=== PATIENT | male | born 1955 | race Caucasian/White ===

== ENCOUNTER 2016-04-28 09:56 | Inpatient (IN) | payer OTHER ==
[~2016-04-28] VITALS: Ht 170.2 cm; Wt 89.1 kg
--- NOTE | 2016-04-28 10:48 | RADIOLOGY REPORT ---
EXAMINATION: XR PORTABLE CHEST CLINICAL INFORMATION: Unresponsive and unconscious patient COMPARISON: None TECHNIQUE: Portable AP view of the chest was obtained. FINDINGS: Borderline heart size. Low lung volumes. Streaky infiltrate or atelectasis noted in the left base. Right-sided central line with the tip at the cavoatrial junction. Any thorax is intact. IMPRESSION: Streaky infiltrate or atelectasis left base. Low lung volumes.
--- NOTE | 2016-04-28 10:55 | ED CRITICAL CARE ---
History of Present Illness General Chief Complaint: Dyspnea (COPD, CHF, Other) Stated Complaint: BIBA FOR RESP DISTRESS Source: family, EMS Exam Limitations: clinical condition Vital Signs & Intake/Output Vital Signs & Intake/Output Vital Signs Date Time Temp Pulse Resp B/P Pulse O2 O2 Flow FiO2 Ox Delivery Rate 05/02 1999 99 Room Air 05/01 1600 97.5 106 24 148/90 97 Room Air 05/01 1600 97 Room Air 05/01 0800 99 Room Air 05/01 0800 97.7 105 24 156/80 99 Room Air 05/01 0000 98 Room Air Room Air / 0000 97.1 109 24 146/90 98 Room Air Room Air ED Intake and Output 05/01 0000 03/05 1200 Intake Total 2140 816 Output Total 420 270 Balance 1720 546 Intake, IV 1300 576 Intake, Oral 840 240 Number 0 Bowel Movements Output, Urine 420 270 Allergies Coded Allergies: No Known Allergies (04/28/16) Reconcile Medications Allopurinol 300 MG TABLET 1 TAB PO DAILY gout (Reported) Reason to Stop at ADM:STEFAN Colchicine 0.6 MG TABLET 1 TAB PO DAILY GOUT (Reported) Reason to Stop at ADM:STEFAN Dexamethasone 2 MG TABLET 2 MG PO Q8 PRN BRAIN TUMOR (Reported) Reason to Stop at ADM:CHANGED TO IV Dronabinol (Marinol) 2.5 MG CAPSULE 1 CAP PO BID N/V (Reported) Reason to Stop at ADM: ON ZOFRAN Folic Acid 1 MG TABLET 1 TAB PO DAILY SUPPLEMENT (Reported) Gabapentin (Neurontin) 300 MG CAPSULE 1 CAP PO TID NEUROGENIC PAIN (Reported) Glimepiride (Amaryl) 2 MG TABLET 2 MG PO DAILY DIABETES (Reported) Reason to Stop at ADM:ISS Lacosamide (Vimpat) 200 MG TABLET 1 TAB PO BID SEIZURES (Reported) Reason to Stop at ADM:PO TO IV Levetiracetam (Keppra) 500 MG TABLET 1 TAB PO BID SEIZURE (Reported) Reason to Stop at ADM:PO TO IV Metoprolol Tartrate (Lopressor) 50 MG TABLET 25 MG PO BID BP (Reported) Reason to Stop at ADM:SHOCK Nut.tx.glucose Intolerance,Soy (Glucerna) 1 EACH BAR 1 BAR PO BID SUPPLEMENT (Reported) Pantoprazole Sodium (Protonix) 40 MG TABLET.DR 1 TAB PO DAILY GI (Reported) Phenytoin (Dilantin) 100 MG CAPSULE 2 CAP PO TID SEIZURE (Reported) Phenytoin (Dilantin) 100 MG CAPSULE 300 MG PO BEDTIME SEIZURES (Reported) Procarbazine Hydrochloride (Matulane) 50 MG CAPSULE 100 MG PO BEDTIME CANCER (Reported) Thiamine HCl 100 MG TABLET 1 TAB PO DAILY SUPPLEMENT (Reported) Triage Note: PT BIBA FOR RESPIRATORY DISTRESS. PER EMS PATIENT WAS CALLED TO FACILITY FOR SOB AND BLUE LEGS. PT WAS FOUND TO HAVE WEAK PEDAL PULSES BILATERAL, UNRESPONSIVE, AND TACHYCARDIC. PT WAS ALSO HYPOTENSIVE WITH A BP OF 100/60. PT ARRIVES IN ER BEING BAGGED BY EMS. PT LETHARGIC WITH O2 SAT OF 54%. RT AT BEDSIDE FOR TREATMENT. DR. BARTHOLOMEW AT BEDSIDE ON PATIENT ARRIVAL. 20G IV PLACED TO LEFT HAND. PT GIVEN NARCAN 0.4MG ON ARRIVAL WITH MINIMAL EFFECT. PT GIVEN 125MG OF IV SOLUMEDROL AT BEDSIDE AND UPDATED ON PLAN OF CARE Triage Nurses Notes Reviewed? yes Onset: Abrupt Duration: UNKNOWN, LAST SEEN NORMAL LAST NIGHT Timing: single episode today Injury Environment: ECF Severity: severe HPI: 60-year-old male history of glioblastoma status post chemotherapy right by EMS from intermediate for chief complaint of cyanosis and unresponsiveness. According to intermediate staff they found him like this this morning. arrives at bedside states that he was doing fine last night and feeding himself. Past History Travel History Traveled to [place] past 21 day No Medical History Any Pertinent Medical History? 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 No Review of Systems Review of Systems Constitutional: Reports: see HPI (UNABLE TO OBTAIN). Physical Exam Physical Exam General Appearance: well developed/nourished, severe distress Head: atraumatic Eyes: Bilateral: PERRL, other (LEFT PUPIL 6MM, R 3-4MM). Neck: normal inspection Respiratory: decreased breath sounds, rhonchi Cardiovascular: tachycardia Peripheral Pulses: 1+ radial (R), 1+ radial (L) Gastrointestinal: soft, non-tender, DISTENDED Extremities: LEFT SIDED WEAKNESS Neurologic/Psych: OBTUNDED, LEFT SIDED WEAKNESS Skin: cyanosis, mottled Core Measures ACS in differential dx? No CVA/TIA Diagnosis: No Severe Sepsis Present: Yes Septic Shock Present: Yes BC x2: Yes Lactic Acid: Yes IV ABX Broad Spectrum: Yes Focused Exam Completed: Yes NS/LR 30ml/kg w/in 3hrs: Yes IV Vasopressors started: Yes ED Sepsis Exam Date of Focused Sepsis Exam: 04/28/16 Time of Focused Sepsis Exam: 1136 Sepsis Cardiac Exam: Tachycardia Sepsis Resp Exam: Ronchi Sepsis Cap Refill Exam: >2 sec Sepsis Peripheral Pulse Exam: Weak Sepsis Peripheral Pulse Location: Radial Sepsis Skin Color Exam: Cyanotic, Mottled Skin Temp/Moisture Exam: Cool/Dry Progress Differential Diagnoses I considered the following diagnoses in my evaluation of the patient: [PNEUMONIA , PE, INTRACRANAIL BLEED, CVA, HYPERCARBIC RESPIRATORY FAILURE, UROSEPSIS, INTRAABDOMINAL VASCULAR INSULT, PERFORATED VISCUS, END ORGAN FAILURE] Plan of Care: Orders Procedure Date/time Status HEPATIC FUNCTION PANEL 05/02 0500 Active CBC WITHOUT DIFFERENTIAL 05/02 0500 Active BASIC ELECTROLYTES PLUS BUN&CR 05/02 0500 Active XRY-MODIFIED BARIUM SWALLOW 05/02 UNK Active Lab Add-on Test 05/01 1342 Active PT Evaluate & Treat 05/01 0850 Active Restraint- Medical 05/01 0849 Active Lara, Insertion/Removal/Asses 05/01 0848 Active PHOSPHORUS 05/01 0459 Complete MAGNESIUM 05/01 0459 Complete TRNSFRASE ASPART AMINO 05/01 0459 Complete TRNSFRAS ALANINE AMINO 05/01 0459 Complete Treatment of Swallowing 05/01 UNK Complete Therapeutic Activities 05/01 UNK Complete PT EVAL MOD COMPLEX 30 MIN 05/01 UNK Complete Neuromuscular Re-ed 05/01 UNK Complete Lab Add-on Test 05/01 UNK Active OXYGEN 04/29 UNK Complete OXYGEN DAILY CHARGE 04/29 UNK Complete CONTIN. POS. AIRWAY PRESS. CHG 04/29 UNK Complete OXYGEN SETUP CHG 04/28 UNK Complete OXYGEN 04/28 UNK Complete OXYGEN TRANSPORT 04/28 UNK Complete CONTIN. POS. AIRWAY PRESS. CHG 04/28 UNK Complete Current Medications Sig/Ness Start time Last Medication Dose Stop Time Status Admin Vancomycin HCl 1,000 MG DAILY 05/01 1000 CAN Dextrose/Water 250 ML (D5W) Acetaminophen 650 MG Q6P PRN 03/04 1900 AC (Tylenol) Laboratory Tests 05/01/16 0459: Anion Gap 11, Estimated GFR > 60, BUN/Creatinine Ratio 48.9 H, Phosphorus 3.6, Magnesium 1.9, AST 151 H, ALT 535 H, CBC w Diff NO MAN DIFF REQ, RBC 2.98 L, MCV 87.4, MCH 29.3, RDW 20.0 H, MPV 8.3, Gran % 89.5 H, Lymphocytes % 8.2 L, Monocytes % 2.0, Eosinophils % 0.1, Basophils % 0.2, Absolute Granulocytes 12.8 H, Absolute Lymphocytes 1.2, Absolute Monocytes 0.3, Absolute Eosinophils 0, Absolute Basophils 0, PUBS MCHC 33.5, Random Vancomycin 11.5 BROAD SPECTRUM ABX, FLUID RESUSSCITATION. PRESSORS STARTED. PATIENT ON BIPAP. PATIENT TO BE DNR/DNI AFTER SPOKE WITH ONCOLOGIST. WILL ADMIT TO ICU. BICARB DRIP. PATIENT IMPROVED ON LEVOPHED. AT BEDSIDE. MUCH TIME SPENT WITH FAMILY. REPORTS TO BE OBTAINED FROM [facility]. D/W DR LAFLEUR WHO EVALUATAED PATIENT IN THE ED. (CHANEL STEVE,[facility]) Diagnostic Imaging: Viewed by Me: CT Scan. Discussed w/RAD: CT Scan. Initial ED EKG: SINUS TACHYCARDIA, VENTRICULAR ECTOPY Comments: PATIENT: ARIADNE BERNSTEIN PRESENT AGE: 60 PATIENT ACCOUNT NO: [id number] : 59 LOCATION: [facility] ORDERING PHYSICIAN: PONCHO RIVERA MD SERVICE DATE: 04/28/16 EXAM TYPE: RAD - XRY-PORTABLE CHEST XRAY EXAMINATION: XR PORTABLE CHEST CLINICAL INFORMATION: Unresponsive and unconscious patient COMPARISON: None TECHNIQUE: Portable AP view of the chest was obtained. FINDINGS: Borderline heart size. Low lung volumes. Streaky infiltrate or atelectasis noted in the left base. Right-sided central line with the tip at the cavoatrial junction. Any thorax is intact. IMPRESSION: Streaky infiltrate or atelectasis left base. Low lung volumes. DICTATED BY: ART MARTINEZ MD DATE/TIME DICTATED:04/28/161038 PATIENT FINANCIAL REP:VERO DATE/TIME TRANSCRIBED:04/28/161038 CONFIDENTIAL, DO NOT COPY WITHOUT APPROPRIATE AUTHORIZATION. <Electronically signed in Other Vendor System> SIGNED BY: ART MARTINEZ MD 04/28/16 1048 PATIENT: ARIADNE BERNSTEIN PRESENT AGE: 60 PATIENT ACCOUNT NO: [id number] : 59 LOCATION: [facility] ORDERING PHYSICIAN: NICKI BUCHANAN MD SERVICE DATE: 04/28/16-110 EXAM TYPE: CAT - CT ABD & PELVIS W/O IV CONTRAS; CT CHEST WO IV CONTRAST EXAMINATION: CT CHEST, ABDOMEN AND PELVIS WITH CONTRAST CLINICAL INFORMATION: Presumptive Dx: R/O INTRAACUTE ABDOMINAL PROCESS
Signs Symptoms: SEPTIC, HYPOTENSIVE
. COMPARISON: No pertinent prior studies are available for comparison. TECHNIQUE: Multidetector volumetric imaging was performed from the thoracic inlet through the pubic symphysis without contrast. Sagittal and coronal reformatted images were obtained on the technologist workstation. DLP: 818.30 mGy-cm FINDINGS: Examination is degraded by patient motion. CHEST: LUNG: Evaluation is degraded by patient motion. Linear atelectatic changes noted in bilateral lower lobes no suspicious lung masses identified.. Hazy groundglass atelectatic changes lingular segment. Pleural-based atelectasis/scarring right posterior base. MEDIASTINUM: Right-sided Port-A-Cath with the tip at the cavoatrial junction. Mild prominence of the mediastinal lymph nodes noted in the prevascular space, right paratracheal and precarinal space. Mildly enlarged lymph nodes also noted in the subcarinal/right posterior hilar region. Mild atherosclerotic disease with intimal calcification of the coronary arteries. PERICARDIUM/PLEURA: No significant effusion. No pleural mass or thickening. CHEST WALL/AXILLA: Unremarkable. ABDOMEN/PELVIS: LIVER, GALLBLADDER, BILIARY TREE: The liver is normal in size, shape, and attenuation. No focal hepatic lesion or biliary ductal dilatation is present. Slightly hyperdense gallbladder appears to be in similar attenuation as the liver. This may be secondary to gallbladder sludge. No evidence of biliary ductal dilatation. PANCREAS: No gross abnormality on the limited noncontrast images. SPLEEN: Unremarkable. ADRENAL GLANDS: Unremarkable. KIDNEYS AND URETERS: No evidence of renal calculi. Renal cortical thinning in the upper poles. Evaluation is limited due to patient motion. BLADDER: Decompressed urinary bladder secondary to Lara catheter. Mild anterior bladder wall thickness. GASTROINTESTINAL TRACT: No acute bowel pathology. There is prominence of the submucosal fatty liver noted throughout decompressed large bowel. This can be seen as a normal variation. It can also be associated with inflammatory bowel disease. ABDOMINAL WALL: Evaluation is degraded by patient motion LYMPHOVASCULAR STRUCTURES: Small bilateral inguinal nodes. There is minor stranding adjacent to the right common femoral vessels (series 2 image 123.). This represent an age indeterminate finding... IVC filter in place. Atherosclerotic disease of the aorta and aortic branches. PELVIC VISCERA: Mild prostatic enlargement. OSSEUS STRUCTURES: Minor decrease in the T8 vertebral body height may be secondary to Schmorl's node along the superior and inferior endplates. This represents an age indeterminate finding. No acute fracture lines identified. Evaluation of the manubrium and sternum is limited due to motion degradation.. Degenerative changes of the thoracic and lumbosacral spine. Mild to moderate degenerative changes bilateral hips. IMPRESSION: 1. Examination is degraded by patient motion. 2. There is no abnormal fluid collection or abscess formation identified 3. Mildly enlarged mediastinal lymph nodes. Monitoring is recommended. 4. Mild prominence of the submucosal fat noted in the decompressed large bowel. This represents a nonspecific finding. It can also be associated with inflammatory bowel disease. No evidence of active disease. 5. Lara catheter in place. Mild anterior bladder wall thickness may be accentuated decompressed urinary bladder. Mild cystitis cannot be excluded. 5. Minor stranding adjacent to the right femoral veins represents a nonspecific finding. Clinical correlation recommended. DICTATED BY: ART MARTINEZ MD DATE/TIME DICTATED:04/28/161156 PATIENT FINANCIAL REP:VERO DATE/TIME TRANSCRIBED:04/28/161156 CONFIDENTIAL, DO NOT COPY WITHOUT APPROPRIATE AUTHORIZATION. <Electronically signed in Other Vendor System> SIGNED BY: ART MARTINEZ MD 04/28/16 1230 PATIENT: ARIADNE BERNTSEIN PRESENT AGE: 60 PATIENT ACCOUNT NO: [id number] : 59 LOCATION: [facility] ORDERING PHYSICIAN: NICKI BUCHANAN MD SERVICE DATE: 04/28/16 EXAM TYPE: CAT - CT HEAD WO IV CONTRAST EXAMINATION: CT HEAD WITHOUT CONTRAST CLINICAL INFORMATION: Altered mental status, respiratory distress. COMPARISON: None TECHNIQUE: Contiguous axial imaging was performed from the skull base to vertex without intravenous administration of contrast. DLP: 601 mGy-cm FINDINGS: There are postsurgical changes from prior right frontal craniotomy. There is right frontal encephalomalacia and periventricular cystic change. The ventricles are enlarged, but this is likely due to the encephalomalacia and sulcal enlargement. There is no evidence of acute intracranial hemorrhage or acute territorial infarction. No abnormal mass effect or midline shift is seen. Raya to white matter differentiation is otherwise preserved. No extra-axial fluid collections are identified. The mastoid air cells and visualized portions of the paranasal sinuses are well aerated. IMPRESSION: 1. No evidence of acute hemorrhage or infarct. 2. Posttraumatic changes to the right frontal lobe with encephalomalacia and ventricular enlargement. Comparison to prior studies would be useful to ensure size of the ventricles is stable. DICTATED BY: MADIE ISLAS MD DATE/TIME DICTATED:04/28/161152 PATIENT FINANCIAL REP:EVRO DATE/TIME TRANSCRIBED:04/28/161152 CONFIDENTIAL, DO NOT COPY WITHOUT APPROPRIATE AUTHORIZATION. <Electronically signed in Other Vendor System> SIGNED BY: MADIE ISLAS MD 1208 Departure Departure Disposition: STILL A PATIENT Condition: Critical Clinical Impression Primary Impression: Septic shock Secondary Impressions: Hypotension Referrals: KELSI MACDONALD MD (PCP/Family) Departure Forms: Customer Survey General Discharge Information Critical Care Note Critical Care Note Critical Care Time: 75-104 min
[2016-04-28 11:13] LABS: ABSOLUTE BASOPHIL COUNT 0.2 /CUMM (0.0-0.2); ABSOLUTE EOSINOPHIL COUNT 0 /CUMM (0.0-0.7); ABSOLUTE GRANULOCYTE CT 14.3 /CUMM (1.4-6.5); ABSOLUTE LYMPH COUNT 4.5 /CUMM (1.2-3.4); ABSOLUTE MONOCYTE COUNT 0.6 /CUMM (0.10-0.60); EOSINOPHIL % 0.2 % (0-5); GRANULOCYTE % 73.2 % (42.2-75.2); HEMATOCRIT 29.9 % (42-52); MEAN CORPUSCULAR HGB 27.2 PG (27.0-31.0); MEAN CORPUSCULAR HGB CONC 30.7 G/DL (33.0-37.0); MEAN CORPUSCULAR VOLUME 88.8 FL (80.0-94.0); MEAN PLATELET VOLUME 8.5 FL (7.4-10.4); PLATELET COUNT 210 /CUMM (130-400); RED BLOOD CELL CT 3.37 /CUMM (4.70-6.10); WHITE BLOOD CELL COUNT 19.6 /CUMM (4.8-10.8)
[2016-04-28 11:24] LABS: PT 14.6 SEC (9.4-12.5); PTT 27 SEC (25-37)
--- NOTE | 2016-04-28 11:46 | History & Physical ---
ANGELINA STEVE,[facility] [place] 1146: General Information and HPI MD Statement: I have seen and personally examined ARIADNE CARRERA and documented this H&P. The patient is a 60 year old M who presented with a patient stated chief complaint of respiratory distress. Source of Information: family, old records Exam Limitations: clinical condition History of Present Illness: Mr Carrera is a 60 y/o M with PMHx of HTN, T2DM and glioblastoma multiforme s/p resection in 2004 and adjuvant radiotherapy in 2005 c/b recurrence in 2014 and intracranial bleed s/p clot evacuation, found to have multifocal progression in June 2015 and started on chemotherapy (procarbazine/lomustine/vincristine) who presents with unresponsiveness and respiratory distress of several hours duration. Patient is lethargic and in respiratory distress on BiPAP and unable to provide any history therefore most of the history is obtained from patient's . Patient had a prolonged hospitalization recently at [facility] ( -04/13/16) for recurrent seizures and fever felt to be secondary to aspiration pneumonia and gout and with negative cultures. Subsequently, he was discharged to [facility] and transferred to [facility] yesterday. The night before current presentation, he was in his usual state of health per patient's . This morning she received a call from the rehab facility with reports that Mr Carrera was in respiratory distress. She found him unresponsive upon arrival. Of note, he follows oncologist Dr. Knott at [facility] and his last dose of chemotherapy was on 04/25/16. Allergies/Medications Allergies: Coded Allergies: No Known Allergies (04/28/16) Past History Travel History Traveled to [place] past 21 day No Medical History Neurological: seizure, glioblastoma multiforme Cardiovascular: hypertension Musculoskeletal: gout Endocrine: diabetes Surgical History Surgical History: resection of oligoastrocytoma, evacuation of intracranial bleed Past Family/Social History Psychosocial History Where do you live? Acute Rehab Review of Systems Review of Systems Constitutional: Reports: see HPI. Exam & Diagnostic Data Last 24 Hrs of Vital Signs/I&O Vital Signs Date Time Temp Pulse Resp B/P Pulse O2 O2 Flow FiO2 Ox Delivery Rate 04/29 0549 102 100 04/29 0400 96 BIPAP 25% 04/29 0350 104 110/64 04/29 0254 104 99 03/04 0035 99 99 03/04 0000 100 BIPAP 25% 03/04 0000 96.8 110 30 118/80 100 BIPAP 25% 03/03 2346 96.8 110 30 118/80 03/03 2248 99 98 03/03 2108 103 20 113/85 /03 2016 96 BIPAP 25% 03/03 1925 96 99 03/03 1817 98 110/75 03/03 1630 95 95 03/03 1600 96.8 100 18 110/68 97 BIPAP 30% 03/03 1600 97 BIPAP 30% 03/03 1515 97 82/62 03/03 1434 103 100 03/03 1430 99 BIPAP 30% 03/03 1430 96.9 100 21 110/70 100 BIPAP 30% 03/03 1355 98.2 103 20 102/60 100 BIPAP 03/03 1329 107 20 115/62 100 BIPAP 30% 03/03 1324 98.6 103 20 94/63 99 BIPAP 30% 03/03 1309 97.6 105 20 97/57 100 BIPAP 03/03 1305 71/43 03/03 1235 123 99 03/03 1214 109 119/58 03/03 1209 107 24 116/62 98 BIPAP 03/03 1204 120 24 99/55 03/03 1203 97.9 109 24 83/55 100 BIPAP 03/03 1159 71/49 03/03 1157 118 89/55 03/03 1152 120 24 99/55 99 BIPAP 03/03 1137 99 6.0L 03/03 1136 123 100 03/03 1128 128 130/67 100 BIPAP 03/03 0957 148 58/30 03/03 0957 54 Intake & Output 03/04 0800 03/04 0000 / 1600 Intake Total 1623 2757 6220 Output Total 400 350 355 Balance 1223 2407 5865 Intake, IV 1623 2757 6220 Number 2 Bowel Movements Output, Urine 400 350 355 Patient 86.636 kg Weight Physical Exam General Appearance Lethargic but Arousable, In Moderate Respiratory Distress on BiPAP Skin Mottled Appearance of Bilateral Lower Extremities HEENT Atraumatic, Left Pupil Dilated and Fixed Neck [place] Hump Cardiovascular Regular Rate Lungs Clear to Auscultation Abdomen Soft, No Tenderness, Positive Bowel Sounds Neurological Follows Commands, Left-Sided Hemiparesis Extremities Delayed Capillary Refill on Bilateral Lower Extremities Vascular Weak Pulses on Bilateral Lower Extremities Last 24 Hrs of Labs/Noel: Laboratory Tests 04/28/16 1650: Lactic Acid Cancelled, PT 16.2 H, INR 1.55 H 04/28/16 1620: pH 7.31 L, pCO2 22 L, pO2 114 H, HCO3 11 L, ABG O2 Sat (Measured) 97.0, P-50 (Temp Corrected) N, Carboxyhemoglobin 0.1 L, O2 Concentration % 30%, Temperature 97.0, Respiration Rate 20, O2 Delivery Method BIPAP, Vent Mode ST, Expiratory Pressure 6, Inspiratory Pressure 18, Phlebotomy Draw Site RIGHT RADIAL 04/28/16 1318: Fibrin Degrad Products > 40 ug/ml H 04/28/16 1253: Lactic Acid 8.5 H 04/28/16 1253: Anion Gap 20 H, Estimated GFR 14 L, BUN/Creatinine Ratio 12.5, Glucose 247 H, Calcium 7.0 L 04/28/16 1230: Urinalysis HEAVY H, Urine Color YEL, Urine Clarity HAZY H, Urine pH 6.0, Ur Specific [place] >= 1.030, Urine Protein >=300 H, Urine Ketones NEG, Urine Nitrite NEG, Urine Bilirubin NEG@ICTO, Urine Urobilinogen 0.2, Ur Leukocyte Esterase TRACE H, Ur Microscopic SEDIMENT EXAMINED, Urine RBC 25-50 H, Urine WBC 50-75 H, Ur Epithelial Cells FEW, Urine Bacteria MANY H, Urine Hemoglobin LARGE H, Urine Glucose 100 H 04/28/16 1210: pH 7.24 *L, pCO2 16 L, pO2 135 H, HCO3 7 L, ABG O2 Sat (Measured) 97.0, Carboxyhemoglobin 0.6 L, O2 Concentration % 30, Respiration Rate 24, O2 Delivery Method BIPAP, Vent Mode ST, Expiratory Pressure 10, Inspiratory Pressure 20, Phlebotomy Draw Site RIGHT RADIAL 04/28/16 1110: pH 7.01 *L, pCO2 17 L, pO2 432 H, HCO3 4 L, ABG O2 Sat (Measured) 99.0, Carboxyhemoglobin 0.4 L, O2 Concentration % 100%, Respiration Rate 24, O2 Delivery Method BIPAP, Vent Mode ST, Expiratory Pressure 10, Inspiratory Pressure 20, Phlebotomy Draw Site RIGHT RADIAL 04/28/16 1100: Anion Gap , Estimated GFR 10 L, BUN/Creatinine Ratio 9.8, Glucose 362 H, Lactic Acid 12.1 H, Calcium 8.7, Total Bilirubin 0.6, AST 31, ALT 43, Alkaline Phosphatase 131 H, Troponin I < 0.01, Nyj-K-Eyceleycygn Pept 83.4, Total Protein 5.8 L, Albumin 3.4 L, Globulin 2.4, Albumin/Globulin Ratio 1.4, PT 14.6 H, INR 1.40 H, APTT 27, Fibrinogen Activity 338, D-Dimer > 5250 H, CBC w Diff MAN DIFF ORDERED, RBC 3.37 L, MCV 88.8, MCH 27.2, RDW 19.0 H, MPV 8.5, Gran % 73.2, Lymphocytes % 22.7, Monocytes % 2.9, Eosinophils % 0.2, Basophils % 1.0, Absolute Granulocytes 14.3 H, Segmented Neutrophils 62, Band Neutrophils 5 , Absolute Lymphocytes 4.5 H, Lymphocytes 24, Monocytes 7, Absolute Monocytes 0.6, Absolute Eosinophils 0, Absolute Basophils 0.2, Metamyelocytes 2 H, Platelet Estimate ADEQUATE, Polychromasia 1+, Hypochromic-Microcytic 1+, Poikilocytosis 2+, Anisocytosis 2+, Ovalocytes 2+, PUBS MCHC 30.7 L 04/28/16 1010: Fli-H-Vsflfvakfjr Pept Cancelled Diagnostic Data CXR Results Streaky infiltrate or atelectasis left base. Low lung volumes. Other Results CT HEAD: 1. No evidence of acute hemorrhage or infarct. 2. Posttraumatic changes to the right frontal lobe with encephalomalacia and ventricular enlargement. Comparison to prior studies would be useful to ensure size of the ventricles is stable. CT CHEST/ABDOMEN/PELVIS 1. Examination is degraded by patient motion. 2. There is no abnormal fluid collection or abscess formation identified 3. Mildly enlarged mediastinal lymph nodes. Monitoring is recommended. 4. Mild prominence of the submucosal fat noted in the decompressed large bowel. This represents a nonspecific finding. It can also be associated with inflammatory bowel disease. No evidence of active disease. 5. Lara catheter in place. Mild anterior bladder wall thickness may be accentuated decompressed urinary bladder. Mild cystitis cannot be excluded. 5. Minor stranding adjacent to the right femoral veins represents a nonspecific finding. Clinical correlation recommended. Assessment/Plan Assessment: 60 y/o M with PMHx of glioblastoma multiforme on chemotherapy and T2DM who is admitted for presumed septic shock of unclear source. Respiratory: #Acute hypoxemic respiratory failure: Patient was in respiratory distress on initial presentation and had to be placed on BiPAP. Potential etiologies include metabolic acidosis or pneumonia. * TRC and nebs. * Continue BiPAP. * Adjust FiO2 as needed to maintain SpO2 > 92%. Infectious Diseases: #Presumed septic shock: Met SIRS criteria for sepsis in the presence of tachycardia (HR 148), tachypnea (RR 24) and leukocytosis (WBC 19.6). Consistent with severe sepsis in the setting of hypotension. Of unclear etiology, but potential etiologies include pneumonia given altered mental status and respiratory distress, UTI given pyuria or an intraabdominal process. CT Chest/ Abdomen/Pelvis with no clear source. * Follow BCx and UCx. * Start ceftazidime 1 g IV daily. * Continue vancomycin. Check random vancomycin level in the AM and redose accordingly in the setting of STEFAN. Cardiovascular: #Shock: Presented with BP of 58/30. Did not respond to fluids initially, thus IV Levophed was started. Most likely etiology is septic shock. S/p femoral line placement in the ED, also has chemo port in place. * Monitor hemodynamics closely. * Continue IV Levophed drip. * Maintenance fluids: NS @ 125 cc/hr. * Central line and pressors are OK per family's wishes. Hematology: H/H 9.2/26.8 and platelets 210 on admission. INR 1.40. * Monitor H/H, platelets and coags. * Check DIC panel due to concern for DIC in the setting of septic shock. Metabolic: #STEFAN: Presented with Cr of 5.7. Has normal kidney function at baseline. Secondary to ischemic and likely septic ATN. After extensive goals of care discussion with nephrology, it was decided that dialysis is not an appropriate therapy. * Nephrology consulted. Appreciate their recs. * No plans for dialysis at this time. * Continue IVF resuscitation. * Avoid nephrotoxic agents including IV contrast. #Lactic acidosis: Presented with marked lactic acidosis (lactate 12.1) and anion gap metabolic acidosis (bicarbonate <5 and anion gap 20). ABG 7.01/17/432/4 on initial presentation, later improved to 7.24/16/135/7 with bicarbonate containing fluids. Likely secondary to septic shock. * Trend lactic acid. * Continue sodium bicarbonate drip @ 75 cc/hr. * Check ABG and if pH < 7.2 add bicarbonate to fluids to maintain pH. #Hyperkalemia: K 6.1 on initial presentation. Secondary to STEFAN and decreased K excretion. * Continue IV hydration and sodium bicarbonate drip as above with close monitoring of K levels. #T2DM: Takes glimepride 2 mg PO daily. * Hold oral hypoglycemic agents while inpatient. * Accu-checks and Novolin NPO sliding scale Q6H. #Gout: Takes allopurinol 300 mg PO daily and colcichine 0.6 mg PO daily. * Hold prior to admission gout medications for now. Alimentary: NPO Neurological: #Glioblastoma multiforme: Complicated by seizures and intracranial bleed in 2014 requiring clot evacuation. Follows with Dr. Knott in [place]. On chemotherapy with procarbazine/lomustine/vincristine. Left-sideed hemiparesis at baseline. CT Head with posttraumatic changes to the right frontal lobe but no evidence of acute hemorrhage or infarct. * Continue prior to admission antiseizure medications in IV form, phenytoin 200 mg IV daily and 300 mg IV QHS, Keppra 500 mg IV BID and Vimpat 100 mg IV Q12H. * Continue dexamethasone 2 mg IV Q8H. * Holding prior to admission chemotherapy agent procarbazine 50 mg PO QHS while patient is NPO. Per oncologist Dr. Knott OK to miss dose while NPO. DVT PPx: ALPs GI PPx: Protonix 40 mg IV daily CODE: DNR/DNI As Ranked By This Provider Problem List: 1. Septic shock 2. Lactic acidosis 3. Hyperkalemia 4. ATN (acute tubular necrosis) 5. Acute hypoxemic respiratory failure 6. Gout 7. T2DM (type 2 diabetes mellitus) 8. Glioblastoma multiforme Core Measures/Miscellaneous Acute Coronary Syndrome ACS Diagnosis: No Cerebrovascular Accident CVA/TIA Diagnosis: No Congestive Heart Failure CHF Diagnosis: No Venous Thromboembolism VTE Risk Factors: Acute medical illness, Age > 40, Cancer/chemo/oth therapy, CHF or Resp failure, Immobility, paresis [facility] prophylaxis d/t: No contraindications No VTE Pharm Prophylaxis d/t: Medical contraindication (Concern for DIC) VTE Diagnosis: No VTE Type: NONE VTE Confirmed by (Test): NONE Severe Sepsis Severe Sepsis Present: Yes BC x2: Yes Lactic Acid x2: Yes IV ABX Broad Spectrum: Yes NS/LR Started: Yes Septic Shock Septic Shock Present: Yes BC x2: Yes Lactic Acid: Yes IV ABX Broad Spectrum: Yes Focused Exam Completed: Yes NS/LR 30ml/kg w/in 3hrs: Yes IV Vasopressors started: Yes Miscellaneous Documentation Attending Case Discussed With: LESTER MEYERS MD Primary Care Physician: KELSI MACDONALD MD Patient sees these Specialists Oncologist - Ruel Knott MD Level of Patient Care: Critical Care (CRI) LESTER MEYERS MD 04/28/16 1245: Attending MD Review Statement Attending Statement Attending MD Statement: examined this patient, discuss w/resident/PA/PERSONAL COMPANION, agreed w/resident/PA/PERSONAL COMPANION, discussed with family, reviewed EMR data (avail), discussed with nursing, discussed with case mgmt, reviewed images, amended to note Attending Assessment/Plan: Lester Jara M.D. have examined this patient, reviewed available EMR data, personally reviewed images, discussed with resident/PA/PERSONAL COMPANION, discussed management plan with housestaff and nursing staff, discussed managment plan all of healthcare providers, discussed management plan with patient and/or family, agreed with resident/PA/PERSONAL COMPANION. The past history and parts of the chart have been autopopulated. Impression 60 year old man History obtained from Ellyn and family at bedside. - Severe acidosis, primarily metabolic - likely secondary to renal failure and dehydration as a possibility - Acute hypoxemic respiratory failure - shock - septic vs hypovolemic (dehydration) - Glioblastoma Multiforme Plan Respiratory - BiPAP settings to be reduced to 18/6, back up rate of 20, fio2 to maintain o2 sat >92% ID - panculture - broad spectrum abx - vancomycin and ceftazadime, monitor vancomycin levels in am prior to administering again given renal failure CVS - ECHO - hemodynamic monitoring - has femoral line and chemo port Heme - monitor coags, cbc Metabolic - nephrology consultation - given severe acidosis, maintain on bicarbonate until evaluated by nephrology Alimentary - NPO Neuro - Glioblastoma - poor prognosis per family and oncologist - continue decadron - no bleeding DVT prophyalxis at all times (check ultrasound of LE and then ALPS) TTS 75 min Discussed with family ( Ellyn) and housestaff LOLA STEVE,[facility] 04/28/16 1353: General Information and HPI Allergies/Medications Home Med list Allopurinol 300 MG TABLET 1 TAB PO DAILY gout (Reported) Reason to Stop at ADM:STEFAN Colchicine 0.6 MG TABLET 1 TAB PO DAILY GOUT (Reported) Reason to Stop at ADM:STEFAN Dexamethasone 2 MG TABLET 2 MG PO Q8 PRN BRAIN TUMOR (Reported) Reason to Stop at ADM:CHANGED TO IV Dronabinol (Marinol) 2.5 MG CAPSULE 1 CAP PO BID N/V (Reported) Reason to Stop at ADM: ON ZOFRAN Folic Acid 1 MG TABLET 1 TAB PO DAILY SUPPLEMENT (Reported) Gabapentin (Neurontin) 300 MG CAPSULE 1 CAP PO TID NEUROGENIC PAIN (Reported) Glimepiride (Amaryl) 2 MG TABLET 2 MG PO DAILY DIABETES (Reported) Reason to Stop at ADM:ISS Lacosamide (Vimpat) 200 MG TABLET 1 TAB PO BID SEIZURES (Reported) Reason to Stop at ADM:PO TO IV Levetiracetam (Keppra) 500 MG TABLET 1 TAB PO BID SEIZURE (Reported) Reason to Stop at ADM:PO TO IV Metoprolol Tartrate (Lopressor) 50 MG TABLET 25 MG PO BID BP (Reported) Reason to Stop at ADM:SHOCK Nut.tx.glucose Intolerance,Soy (Glucerna) 1 EACH BAR 1 BAR PO BID SUPPLEMENT (Reported) Pantoprazole Sodium (Protonix) 40 MG TABLET.DR 1 TAB PO DAILY GI (Reported) Phenytoin (Dilantin) 100 MG CAPSULE 2 CAP PO TID SEIZURE (Reported) Phenytoin (Dilantin) 100 MG CAPSULE 300 MG PO BEDTIME SEIZURES (Reported) Procarbazine Hydrochloride (Matulane) 50 MG CAPSULE 100 MG PO BEDTIME CANCER (Reported) Thiamine HCl 100 MG TABLET 1 TAB PO DAILY SUPPLEMENT (Reported) Resident Review Statement Resident Statement: examined this patient, discussed with financial services intern, agreed with financial services intern, discussed with family, reviewed EMR data (avail), discussed with nursing , discussed with case mgmt, reviewed images, amended to note Other Findings: With a past medical history of seizures, glioma diagnosed 2 years ago status post brain surgery in 2014, that got progressed to right frontal lobe [place] astrocytoma/glioblastoma, with the tumor increasing in size in March 2016, when he was started on new chemotherapy (PCV - Procarbazine, CCNU, Vincristine), his outpatient oncologist is Dr. Ruel Knott as [facility] in [place], was admitted to [facility] in March with increased weakness and worsening of his tumor when the chemotherapy was started, discharged to nursing care facility, from where he was discharged to [facility] 1 day prior to admission, presents today with altered mental status, blue legs, weak pedal pulses bilaterally, tachycardia, and a blood pressure in 50s, right eye sluggish to response, unable to lift the right arm, not able to lift right or left leg. In the ED, she had a temperature of 97.9, pulse rate 148, respiratory rate 24, but pressure 58/30, and oxygen saturation of 54% on 6 L of oxygen by nasal cannula. He was immediately started on BiPAP at 30% FiO2, central line was placed and she was started on Levophed. Upon evaluation by the ICU team the patient was awake and alert and talking appropriately however very lethargic, wearing a BiPAP and in [id number] distress Physical findings include a buffalo hump, clear lungs, tachycardia, abdomen had positive bowel sounds, nontender The patient was was able to follow all commands, unable to lift left leg or left arm, right arm had to remove months, was able to lift the right leg to 40% above the bed. Mottled blue lower extremities up to the thighs Lab work included WBC count of 19.6, hemoglobin 9.2 and hematocrit of 29.9 with platelet count 210, no bands Sodium 138, and K 6.1, chloride 109, bicarbonate less than 5, anion gap 20, BUN 56, creatinine 5.7 (baseline unavailable but according to the his kidneys have been normal), lactic acid 12.1, ABG shows a pH of 7.01, PCO2 17, PO2 432, bicarbonate for on BiPAP 20/12/19 INR 1.40, PT 14.6, fibrinogen activity 338, d-dimer more than 5000 Assessment: 1. Septic shock, with primary source unknown 2. Severe Metabolic acidosis/Lactoic acidosis 3. History of seizures likely secondary to brain tumor 4. History of glioblastoma status post resection on chemotherapy last received PCV on April 25 5. Acute kidney injury Plan: - Admit to ICU - The patient has septic shock with a blood pressure in 50s, did not respond to fluids, was started on central line and Levophed, primary source unknown, chest x-ray negative and urinalysis was negative as well but keeping the fact the patient is immunocompromised and on chemotherapy with a poor prognosis to could be an intra-abdominal process going on - Start on Ceftaz and Vanc (a random level should be checked to re-dose vancomycin in the morning) - We'll continue on Levothroid - Maintainence normal saline at 125cc per hour - Received BiPAP, will check ABG the DH is less than 7.2 and bicarbonate to fluids - Follow BEP - Panculture, consider abdominal pelvis CT, cannot get contrast, due to high kidney function, is not his baseline - The patient will be continued on his sheets seizure medications but change to IV - ISS - Nephrology consult - Malutae, alkalizing agent, that he takes every day has been held for now. His cast with the outpatient oncologist regarding the need to continue this medication while he is in the hospital - Pain pathway: Have only received IV acetaminophen, will avoid any narcotics and the patient is unable to take any by mouth medications right now because of what her mental status and BiPAP - CODE STATUS is a DNI/DNR, okay for central line and pressors that he is on currently, after long discussion with the family. also spoke with the outpatient oncologist was recommended DNI Case discussed with Dr. Meyers.
--- NOTE | 2016-04-28 12:08 | CT SCAN REPORT ---
EXAMINATION: CT HEAD WITHOUT CONTRAST CLINICAL INFORMATION: Altered mental status, respiratory distress. COMPARISON: None TECHNIQUE: Contiguous axial imaging was performed from the skull base to vertex without intravenous administration of contrast. DLP: 601 mGy-cm FINDINGS: There are postsurgical changes from prior right frontal craniotomy. There is right frontal encephalomalacia and periventricular cystic change. The ventricles are enlarged, but this is likely due to the encephalomalacia and sulcal enlargement. There is no evidence of acute intracranial hemorrhage or acute territorial infarction. No abnormal mass effect or midline shift is seen. Raya to white matter differentiation is otherwise preserved. No extra-axial fluid collections are identified. The mastoid air cells and visualized portions of the paranasal sinuses are well aerated. IMPRESSION: 1. No evidence of acute hemorrhage or infarct. 2. Posttraumatic changes to the right frontal lobe with encephalomalacia and ventricular enlargement. Comparison to prior studies would be useful to ensure size of the ventricles is stable.
--- NOTE | 2016-04-28 12:30 | CT SCAN REPORT ---
EXAMINATION: CT CHEST, ABDOMEN AND PELVIS WITH CONTRAST CLINICAL INFORMATION: Presumptive Dx: R/O INTRAACUTE ABDOMINAL PROCESS
Signs Symptoms: SEPTIC, HYPOTENSIVE
. COMPARISON: No pertinent prior studies are available for comparison. TECHNIQUE: Multidetector volumetric imaging was performed from the thoracic inlet through the pubic symphysis without contrast. Sagittal and coronal reformatted images were obtained on the technologist workstation. DLP: 818.30 mGy-cm FINDINGS: Examination is degraded by patient motion. CHEST: LUNG: Evaluation is degraded by patient motion. Linear atelectatic changes noted in bilateral lower lobes no suspicious lung masses identified.. Hazy groundglass atelectatic changes lingular segment. Pleural-based atelectasis/scarring right posterior base. MEDIASTINUM: Right-sided Port-A-Cath with the tip at the cavoatrial junction. Mild prominence of the mediastinal lymph nodes noted in the prevascular space, right paratracheal and precarinal space. Mildly enlarged lymph nodes also noted in the subcarinal/right posterior hilar region. Mild atherosclerotic disease with intimal calcification of the coronary arteries. PERICARDIUM/PLEURA: No significant effusion. No pleural mass or thickening. CHEST WALL/AXILLA: Unremarkable. ABDOMEN/PELVIS: LIVER, GALLBLADDER, BILIARY TREE: The liver is normal in size, shape, and attenuation. No focal hepatic lesion or biliary ductal dilatation is present. Slightly hyperdense gallbladder appears to be in similar attenuation as the liver. This may be secondary to gallbladder sludge. No evidence of biliary ductal dilatation. PANCREAS: No gross abnormality on the limited noncontrast images. SPLEEN: Unremarkable. ADRENAL GLANDS: Unremarkable. KIDNEYS AND URETERS: No evidence of renal calculi. Renal cortical thinning in the upper poles. Evaluation is limited due to patient motion. BLADDER: Decompressed urinary bladder secondary to Lara catheter. Mild anterior bladder wall thickness. GASTROINTESTINAL TRACT: No acute bowel pathology. There is prominence of the submucosal fatty liver noted throughout decompressed large bowel. This can be seen as a normal variation. It can also be associated with inflammatory bowel disease. ABDOMINAL WALL: Evaluation is degraded by patient motion LYMPHOVASCULAR STRUCTURES: Small bilateral inguinal nodes. There is minor stranding adjacent to the right common femoral vessels (series 2 image 123.). This represent an age indeterminate finding... IVC filter in place. Atherosclerotic disease of the aorta and aortic branches. PELVIC VISCERA: Mild prostatic enlargement. OSSEUS STRUCTURES: Minor decrease in the T8 vertebral body height may be secondary to Schmorl's node along the superior and inferior endplates. This represents an age indeterminate finding. No acute fracture lines identified. Evaluation of the manubrium and sternum is limited due to motion degradation.. Degenerative changes of the thoracic and lumbosacral spine. Mild to moderate degenerative changes bilateral hips. IMPRESSION: 1. Examination is degraded by patient motion. 2. There is no abnormal fluid collection or abscess formation identified 3. Mildly enlarged mediastinal lymph nodes. Monitoring is recommended. 4. Mild prominence of the submucosal fat noted in the decompressed large bowel. This represents a nonspecific finding. It can also be associated with inflammatory bowel disease. No evidence of active disease. 5. Lara catheter in place. Mild anterior bladder wall thickness may be accentuated decompressed urinary bladder. Mild cystitis cannot be excluded. 5. Minor stranding adjacent to the right femoral veins represents a nonspecific finding. Clinical correlation recommended.
--- NOTE | 2016-04-28 12:45 | Admission Certification ---
Admission Certification Certification Statement - As attending physician, I certify that at the time of - admission, based on clinical presentation, severity of - symptoms, need for further diagnostic testing and - therapeutic interventions, and risk of adverse outcomes - without in-hospital treatment, in my clinical assessment, - this patient requires an acute hospital stay for a minimum - of two nights or longer. I have also considered psychsocial - factors such as support system, advanced age, financial - issues, cognitive issues, and failed out-patient treatments, - past re-admission history, safety of patient, and lack of - compliance as applicable. Specific rationale supporting this admission is: Glioblastoma, acute respiratory failure, renal failure, shock requiring vasopressors. ICU level of care.
[2016-04-28] MEDS ORDERED: ALLOPURINOL300 M1 PO (13:21)
[2016-04-28] MEDS ORDERED: FOLIC ACID1 M1 PO (13:22)
[2016-04-28] MEDS ORDERED: DEXAMETHASONE2 M1 PO (13:22)
[2016-04-28] MEDS ORDERED: AMARYL2 M1 PO (13:23)
[2016-04-28] MEDS ORDERED: KEPPRA500 M1 PO (13:23)
[2016-04-28] MEDS ORDERED: COLCHICINE0.6 M2 PO (13:24)
[2016-04-28] MEDS ORDERED: MATULANE50 MG PO (13:25)
[2016-04-28] MEDS ORDERED: MARINOL2.5 MG PO (13:25)
[2016-04-28] MEDS ORDERED: NEURONTIN300 M1 PO (13:26)
[2016-04-28] MEDS ORDERED: DILANTIN100 M1 PO ×2 (13:26→13:28)
[2016-04-28] MEDS ORDERED: LOPRESSOR50 M1 PO (13:26)
[2016-04-28] MEDS ORDERED: PROTONIX40 M3 PO (13:27)
[2016-04-28] MEDS ORDERED: THIAMINE HCL100 M1 PO (13:28)
[2016-04-28] MEDS ORDERED: VIMPAT200 M1 PO (13:28)
[2016-04-28] MEDS ORDERED: GLUCERNA1 EACH PO (13:30)
[2016-04-28 14:30] VITALS: BP 110/70
--- NOTE | 2016-04-28 14:38 | Cons- Nephrology ---
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 He was recently hospitalized at [facility] from 04/01-04/13 for seizures. In speaking to the patient's , he had been having multiple falls. This hospitalization was complicated by recurrent seizures and fever thought to be secondary to aspiration PNA and gout with negative cultures. Patient was discharged to acute rehabilitation at [place] and was just transferred yesterday to [facility] for STR. In speaking to the , patient was found unresponsive this morning for which he was transferred to [facility]. Of note he last took oral procarbazine on Sunday. In presentation to [facility], his blood pressures 58/30. He was started on pressors. His labs were notable for a blood gas 7.03/14/432 on BiPAP. His basic metabolic was notable for a creatinine of 5.7, undetectable bicarbonate, potassium 6.1, lactate 12.1, white blood cell count 19.6 and urinalysis with greater than 300 mg protein/25-50 rbc's/50-75 WBCs. He was started on bicarbonate containing fluid with some improvement in his bicarbonate to 8 as well as his pH to 7.24. 190 mL of urine output thus far. Creatinine has improved to 4.4. CAT scan done without any clear source of shock. Allergies/Medications Allergies: Coded Allergies: No Known Allergies (04/28/16) Home Med List: Allopurinol 300 MG TABLET 1 TAB PO DAILY gout (Reported) Reason to Stop at ADM:STEFAN Colchicine 0.6 MG TABLET 1 TAB PO DAILY GOUT (Reported) Reason to Stop at ADM:STEFAN Dexamethasone 2 MG TABLET 2 MG PO Q8 PRN BRAIN TUMOR (Reported) Reason to Stop at ADM:CHANGED TO IV Dronabinol (Marinol) 2.5 MG CAPSULE 1 CAP PO BID N/V (Reported) Reason to Stop at ADM: ON ZOFRAN Folic Acid 1 MG TABLET 1 TAB PO DAILY SUPPLEMENT (Reported) Gabapentin (Neurontin) 300 MG CAPSULE 1 CAP PO TID NEUROGENIC PAIN (Reported) Glimepiride (Amaryl) 2 MG TABLET 2 MG PO DAILY DIABETES (Reported) Reason to Stop at ADM:ISS Lacosamide (Vimpat) 200 MG TABLET 1 TAB PO BID SEIZURES (Reported) Reason to Stop at ADM:PO TO IV Levetiracetam (Keppra) 500 MG TABLET 1 TAB PO BID SEIZURE (Reported) Reason to Stop at ADM:PO TO IV Metoprolol Tartrate (Lopressor) 50 MG TABLET 25 MG PO BID BP (Reported) Reason to Stop at ADM:SHOCK Nut.tx.glucose Intolerance,Soy (Glucerna) 1 EACH BAR 1 BAR PO BID SUPPLEMENT (Reported) Pantoprazole Sodium (Protonix) 40 MG TABLET.DR 1 TAB PO DAILY GI (Reported) Phenytoin (Dilantin) 100 MG CAPSULE 2 CAP PO TID SEIZURE (Reported) Phenytoin (Dilantin) 100 MG CAPSULE 300 MG PO BEDTIME SEIZURES (Reported) Procarbazine Hydrochloride (Matulane) 50 MG CAPSULE 100 MG PO BEDTIME CANCER (Reported) Thiamine HCl 100 MG TABLET 1 TAB PO DAILY SUPPLEMENT (Reported) Current Medications: Current Medications Sig/Ness Start time Last Medication Dose Route Stop Time Status Admin Acetaminophen 1,000 MG Q6P PRN 04/28 1315 AC IV Albuterol Sulfate 3 ML ONCE ONE 04/28 1015 DC 04/28 INH 04/28 1016 1148 Ceftazidime 1,000 MG Q12 04/28 2200 UNVr IV Ceftazidime 0 .STK-MED ONE 04/28 1026 DC .ROUTE Dexamethasone 2 MG Q8 04/28 1400 AC Dextrose/Water 50 ML IV Insulin Aspart 0 TIDAC 04/28 1700 UNVr SC Ipratropium [place] 2.5 ML ONCE ONE 04/28 1015 DC 04/28 INH 04/28 1016 1242 Levetiracetam 500 MG BID 04/28 1344 UNVr Sodium Chloride 100 ML IV Methylprednisolone 125 MG ONCE ONE 04/28 1015 DC 04/28 IV 04/28 1016 1148 Methylprednisolone 0 .STK-MED ONE 04/28 1002 DC .ROUTE Non-Formulary 0 SEE ADMIN CRITERIA 04/28 1400 UNVr Medication ANY Non-Formulary 0 SEE ADMIN CRITERIA 04/28 1400 UNVr Medication ANY Norepinephrine 4 MG ONCE ONE 04/28 1200 AC 04/28 Sodium Chloride 250 ML IV 04/29 0029 1204 Norepinephrine 0 .STK-MED ONE 04/28 1111 DC IV Norepinephrine 0 .STK-MED ONE 04/28 1051 DC IV Pantoprazole Sodium 40 MG DAILY 04/28 1344 UNVr IV Phenytoin 300 MG AT BEDTIME 04/28 2200 UNVr Sodium Chloride 50 ML IV Phenytoin 200 MG DAILY 04/28 1346 UNVr Sodium Chloride 50 ML IV Sodium Bicarbonate 75 MEQ Q13H 04/28 1130 AC 04/28 Sodium Chloride 1,000 ML IV 04/29 0029 1148 Sodium Bicarbonate 50 MEQ ONCE ONE 04/28 1130 DC 04/28 IV 04/28 1131 1148 Sodium Bicarbonate 50 MEQ ONCE ONE 04/28 1130 DC 04/28 IV 04/28 1131 1148 Sodium Chloride 1,000 ML Q8H 04/28 1330 AC 04/28 IV 1338 Sodium Chloride 1,000 ML BOLUS ONE 04/28 1300 DC 04/28 IV 04/28 1359 1305 Sodium Chloride 1,000 ML BOLUS ONE 04/28 1200 DC 04/28 IV 04/28 1259 1148 Sodium Chloride 1,000 ML BOLUS ONE 04/28 1200 DC 04/28 IV 04/28 1259 1148 Sodium Chloride 1,000 ML BOLUS ONE 04/28 1015 DC 04/28 IV 04/28 1114 1148 Vancomycin HCl 0 .STK-MED ONE 04/28 1026 DC .ROUTE Review of Systems Review of Systems: Unable to complete ROS given AMS Past History Travel History Traveled to [place] past 21 day No Medical History Neurological: STROKE LEFT SIDE HEMIPARESIS RIGHT FRONTAL LOBE OLIGOASTIOCYTOMA R FRONTAL LOBE HEMMORAGHE Endocrine: diabetes Surgical History Surgical History: unobtainable Psychosocial History Where Do You Live? [facility] Facility Exam & Diagnostic Data Vital Signs and I&O Vital Signs Date Time Temp Pulse Resp B/P Pulse O2 O2 Flow FiO2 Ox Delivery Rate 04/28 1355 98.2 103 20 102/60 100 BIPAP 04/28 1329 107 20 115/62 100 BIPAP 30% 04/28 1324 98.6 103 20 94/63 99 BIPAP 30% 04/28 1309 97.6 105 20 97/57 100 BIPAP 04/28 1305 71/43 04/28 1235 123 99 04/28 1214 109 119/58 04/28 1209 107 24 116/62 98 BIPAP 04/28 1204 120 24 99/55 04/28 1203 97.9 109 24 83/55 100 BIPAP 04/28 1159 71/49 04/28 1157 118 89/55 04/28 1152 120 24 99/55 99 BIPAP 04/28 1137 99 6.0L 04/28 1136 123 100 04/28 1128 128 130/67 100 BIPAP 04/28 0957 148 58/30 04/28 0957 54 Intake & Output 04/28 1600 04/28 0400 04/27 1600 04/27 0400 04/26 1600 04/26 0400 Intake Total 2000 Output Total 190 Balance 1810 Intake, IV 2000 Output, Urine 190 Physical Exam: Gen - ill appearing, on Bipap Head - NCAT Eyes - anicteric sclera, L pupil dilated Neck - supple CV - RRR CHest - grossly clear anteriorly Abd - soft, nontender Upper ext - no edema Lower ext - no edema Skin - mottled Neuro - lethargic Results Pertinent Lab Results: Laboratory Tests 04/28 04/28 04/28 1318 1253 1253 Chemistry Sodium (137 - 145 mmol/L) 142 Potassium (3.5 - 5.1 mmol/L) 5.0 Chloride (98 - 107 mmol/L) 114 H Carbon Dioxide (22 - 30 mmol/L) 8 *L Anion Gap (5 - 16) 20 H BUN (9 - 20 mg/dL) 55 H Creatinine (0.7 - 1.2 mg/dL) 4.4 H Estimated GFR (>60 ml/min) 14 L BUN/Creatinine Ratio (7 - 25 %) 12.5 Glucose (65 - 99 mg/dL) 247 H Lactic Acid (0.7 - 2.1 mmol/L) 8.5 H Calcium (8.4 - 10.2 mg/dL) 7.0 L Coagulation Fibrin Degrad Products (< 10 ug/ml) > 40 ug/ml H 04/28 04/28 1230 1210 Blood Gas pH (7.35 - 7.45 PH) 7.24 *L pCO2 (35 - 45 TORR) 16 L pO2 (80 - 100 TORR) 135 H HCO3 (21 - 28 MEQ/L) 7 L ABG O2 Sat (Measured) (>96.0 %) 97.0 Carboxyhemoglobin (1.5 - 5.0 %) 0.6 L O2 Concentration % 30 Respiration Rate (BPM) 24 O2 Delivery Method BIPAP Vent Mode ST Expiratory Pressure (CM H2O P) 10 Inspiratory Pressure (CM H2O P) 20 Miscellaneous Phlebotomy Draw Site RIGHT RADIAL Urines Urinalysis HEAVY H Urine Color (YEL,AMB,STR) YEL Urine Clarity (CLEAR) HAZY H Urine pH (5.0 - 8.0) 6.0 Ur Specific [place] (1.001 - 1.035) >= 1.030 Urine Protein (NEG,<30 MG/DL) >=300 H Urine Ketones (NEG) NEG Urine Nitrite (NEG) NEG Urine Bilirubin (NEG) NEG@ICTO Urine Urobilinogen (0.1 - 1.0 EU/dl) 0.2 Ur Leukocyte Esterase (NEG) TRACE H Ur Microscopic SEDIMENT EXAMINED Urine RBC (0 - 5 /HPF) 25-50 H Urine WBC (0 - 2 /HPF) 50-75 H Ur Epithelial Cells (NONE,FEW) FEW Urine Bacteria (NEG/NONE) MANY H Urine Hemoglobin (NEG) LARGE H Urine Glucose (N MG/DL) 100 H 03 03 1110 1100 Blood Gas pH (7.35 - 7.45 PH) 7.01 *L pCO2 (35 - 45 TORR) 17 L pO2 (80 - 100 TORR) 432 H HCO3 (21 - 28 MEQ/L) 4 L ABG O2 Sat (Measured) (>96.0 %) 99.0 Carboxyhemoglobin (1.5 - 5.0 %) 0.4 L O2 Concentration % 100% Respiration Rate (BPM) 24 O2 Delivery Method BIPAP Vent Mode ST Expiratory Pressure (CM H2O P) 10 Inspiratory Pressure (CM H2O P) 20 Chemistry Sodium (137 - 145 mmol/L) 138 Potassium (3.5 - 5.1 mmol/L) 6.1 *H Chloride (98 - 107 mmol/L) 109 H Carbon Dioxide (22 - 30 mmol/L) < 5 *L Anion Gap (5 - 16) BUN (9 - 20 mg/dL) 56 H Creatinine (0.7 - 1.2 mg/dL) 5.7 *H Estimated GFR (>60 ml/min) 10 L BUN/Creatinine Ratio (7 - 25 %) 9.8 Glucose (65 - 99 mg/dL) 362 H Lactic Acid (0.7 - 2.1 mmol/L) 12.1 H Calcium (8.4 - 10.2 mg/dL) 8.7 Total Bilirubin (0.2 - 1.3 mg/dL) 0.6 AST (17 - 59 U/L) 31 ALT (21 - 72 U/L) 43 Alkaline Phosphatase (< 127 U/L) 131 H Troponin I (<0.11 ng/ml) < 0.01 Ixs-W-Invmabjgmok Pept (<125 pg/mL) 83.4 Total Protein (6.3 - 8.2 g/dL) 5.8 L Albumin (3.5 - 5.0 g/dL) 3.4 L Globulin (1.9 - 4.2 gm/dL) 2.4 Albumin/Globulin Ratio (1.1 - 2.2 %) 1.4 Coagulation PT (9.4 - 12.5 SEC) 14.6 H INR (0.90 - 1.17) 1.40 H APTT (25 - 37 SEC) 27 Fibrinogen Activity (200 - 393 MG/DL) 338 D-Dimer (70 - 232 ng/ml) > 5250 H Hematology CBC w Diff MAN DIFF ORDERED WBC (4.8 - 10.8 /CUMM) 19.6 H RBC (4.70 - 6.10 /CUMM) 3.37 L Hgb (14.0 - 18.0 G/DL) 9.2 L Hct (42 - 52 %) 29.9 L MCV (80.0 - 94.0 FL) 88.8 MCH (27.0 - 31.0 PG) 27.2 RDW (11.5 - 14.5 %) 19.0 H Plt Count (130 - 400 /CUMM) 210 MPV (7.4 - 10.4 FL) 8.5 Gran % (42.2 - 75.2 %) 73.2 Lymphocytes % (20.5 - 51.1 %) 22.7 Monocytes % (1.7 - 9.3 %) 2.9 Eosinophils % (0 - 5 %) 0.2 Basophils % (0.0 - 2.0 %) 1.0 Absolute Granulocytes (1.4 - 6.5 /CUMM) 14.3 H Segmented Neutrophils (42.2 - 75.2 %) 62 Band Neutrophils (0.0 - 5.0 %) 5 Absolute Lymphocytes (1.2 - 3.4 /CUMM) 4.5 H Lymphocytes (20.5 - 51.1 %) 24 Monocytes (1.7 - 9.3 %) 7 Absolute Monocytes (0.10 - 0.60 /CUMM) 0.6 Absolute Eosinophils (0.0 - 0.7 /CUMM) 0 Absolute Basophils (0.0 - 0.2 /CUMM) 0.2 Metamyelocytes (0.0 - 1.0 %) 2 H Platelet Estimate (ADEQUATE) ADEQUATE Polychromasia 1+ Hypochromic-Microcytic 1+ Poikilocytosis 2+ Anisocytosis 2+ Ovalocytes 2+ PUBS MCHC (33.0 - 37.0 G/DL) 30.7 L Miscellaneous Phlebotomy Draw Site RIGHT RADIAL 04/28 1010 Chemistry Wrv-[id number]-Uoygrnnlrzl Pept Cancelled Imaging/Other Studies: CT reviewed Chest x-ray reviewed Assessment/Plan Assessment/Recommendations Assessment: STEFAN -secondary to ischemic and likely septic ATN. I had a long goals of care discussion with the patient's who is in agreement that dialysis is not an appropriate therapy. The patient has also been noted to be DO NOT RESUSCITATE and DO NOT INTUBATE. Lactic acidosis -in the setting of shock area is starting to improve with current therapies. Hyperkalemia - 2/2 STEFAN and decreased K excretion. Shock - presumed septic. Recommendations: -No plans for dialysis -Cont IVF resuscitation - can use isotonic bicarb containing fluids to maintain pH>7.20 -f/u cultures Please call [phone] with ?'s
[2016-04-28 16:00] VITALS: BP 110/68
[2016-04-28 17:27] LABS: PT 16.2 SEC (9.4-12.5)
[2016-04-28 18:09] LABS: ABSOLUTE BASOPHIL COUNT 0 /CUMM (0.0-0.2); ABSOLUTE EOSINOPHIL COUNT 0 /CUMM (0.0-0.7); ABSOLUTE GRANULOCYTE CT 22.6 /CUMM (1.4-6.5); ABSOLUTE LYMPH COUNT 0.9 /CUMM (1.2-3.4); ABSOLUTE MONOCYTE COUNT 0.3 /CUMM (0.10-0.60); BASOPHIL % 0 % (0.0-2.0); EOSINOPHIL % 0 % (0-5); GRANULOCYTE % 94.9 % (42.2-75.2); HEMATOCRIT 27.3 % (42-52); MEAN CORPUSCULAR VOLUME 87.8 FL (80.0-94.0); MEAN PLATELET VOLUME 8.1 FL (7.4-10.4); PLATELET COUNT 127 /CUMM (130-400); RBC DISTRIBUTION WIDTH 19.4 % (11.5-14.5); RED BLOOD CELL CT 3.11 /CUMM (4.70-6.10); WHITE BLOOD CELL COUNT 23.8 /CUMM (4.8-10.8)
[2016-04-28 18:11] LABS: MEAN CORPUSCULAR HGB 30.1 PG (27.0-31.0); MEAN CORPUSCULAR HGB CONC 34.3 G/DL (33.0-37.0)
[2016-04-29] VITALS: BP 118/80
[2016-04-29 05:38] LABS: ABSOLUTE BASOPHIL COUNT 0 /CUMM (0.0-0.2); ABSOLUTE EOSINOPHIL COUNT 0 /CUMM (0.0-0.7); ABSOLUTE GRANULOCYTE CT 13.7 /CUMM (1.4-6.5); ABSOLUTE LYMPH COUNT 0.7 /CUMM (1.2-3.4); ABSOLUTE MONOCYTE COUNT 0.3 /CUMM (0.10-0.60); BASOPHIL % 0 % (0.0-2.0); EOSINOPHIL % 0.1 % (0-5); GRANULOCYTE % 92.7 % (42.2-75.2); HEMATOCRIT 26.8 % (42-52); MEAN CORPUSCULAR HGB 29.5 PG (27.0-31.0); MEAN CORPUSCULAR HGB CONC 34.1 G/DL (33.0-37.0); MEAN CORPUSCULAR VOLUME 86.5 FL (80.0-94.0); RBC DISTRIBUTION WIDTH 19.2 % (11.5-14.5); WHITE BLOOD CELL COUNT 14.8 /CUMM (4.8-10.8)
[2016-04-29 05:53] LABS: PLATELET COUNT 87 /CUMM (130-400)
[2016-04-29 08:00] VITALS: BP 110/70
--- NOTE | 2016-04-29 08:17 | PN- Resident CRCU ---
Subjective HPI/CRCU Issues: Blood pressures improved overnight and IV Levophed was discontinued. Patient was seen and examined this morning. He looks much more awake and alert. He remains hemodynamically stable. Later in the day he was able to come off BiPAP to room air. He passed swallow evaluation and was started on oral intake. Objective Vital Signs & I&O Last 8 Hrs of Vitals and I&O: Vital Signs Date Time Temp Pulse Resp B/P Pulse O2 O2 Flow FiO2 Ox Delivery Rate 04/29 1600 99.0 114 27 110/80 98 Room Air 03/ 1600 97 Room Air 03/ 1200 95 Room Air / 0800 99 BIPAP 25% / 0800 98.1 108 18 110/70 100 BIPAP 25% / 0758 109 100 / 0549 102 100 / 0400 96 BIPAP 25% / 0350 104 110/64 / 0254 104 99 03/04 0035 99 99 03/04 0000 100 BIPAP 25% 03/ 0000 96.8 110 30 118/80 100 BIPAP 25% 03 2346 96.8 110 30 118/80 Intake & Output / 1600 Intake Total 1603 Output Total 400 Balance 1203 Intake, IV 1603 Number 2 Bowel Movements Output, Urine 400 Exam General Appearance: alert, awake, answers simple questions appropriately, follows commands Head: atraumatic, normal appearance Neck: supple Respiratory: lungs clear Cardiovascular: regular rate/rhythm Gastrointestinal: soft, non-tender, positive bowel sounds Extremities: no edema Current Medications: Current Medications Sig/Ness Start time Last Medication Dose Route Stop Time Status Admin Acetaminophen 650 MG Q6P PRN 04/29 1900 AC PO Acetaminophen 1,000 MG Q6P PRN 04/28 1315 DC IV Ceftazidime 1,000 MG DAILY 04/29 1000 AC 04/29 IV 1001 Dexamethasone 2 MG Q8 04/29 2200 AC / PO 2244 Dexamethasone 2 MG Q8 04/28 1400 DC 04/29 Dextrose/Water 50 ML IV 1345 Dextrose/Sodium 1,000 ML Q13H 04/29 0900 AC 04/29 Chloride IV 0953 Insulin Aspart 0 TIDAC 04/30 0800 AC SC Insulin Human Regular 0 Q6 04/28 1800 DC 04/29 SC 1205 Lacosamide 200 MG BID 04/30 1000 AC PO Lacosamide 100 MG Q12H 04/28 1800 DC 04/29 Sodium Chloride 100 ML IV 1742 Levetiracetam 500 MG BID 04/29 2200 AC 04/29 PO 2244 Levetiracetam 500 MG BID 04/28 1344 DC 04/29 Sodium Chloride 100 ML IV 0956 Magnesium Sulfate 1 GM ONCE ONE 04/29 0830 DC 04/29 Dextrose/Water 100 ML IV 04/29 1229 0838 Non-Formulary 0 SEE ADMIN CRITERIA 04/29 1900 UNVr Medication ANY Non-Formulary 0 SEE ADMIN CRITERIA 04/28 1400 DC Medication ANY Norepinephrine 4 MG Q3H 04/28 1500 DC 04/29 Sodium Chloride 250 ML IV 0350 Norepinephrine 4 MG ONCE ONE 04/28 1200 DC 04/28 Sodium Chloride 250 ML IV 04/29 0029 1204 Omeprazole 40 MG DAILY AC 04/30 0700 AC PO Pantoprazole Sodium 40 MG DAILY 04/28 1344 DC 04/29 IV 1001 Phenytoin 200 MG DAILY 04/30 1000 AC PO Phenytoin 300 MG AT BEDTIME 04/29 2200 AC 04/29 PO 2244 Phenytoin 200 MG Q8 04/29 2200 DC PO Phenytoin 300 MG AT BEDTIME 04/28 2200 DC 04/28 Sodium Chloride 50 ML IV 2203 Phenytoin 200 MG DAILY 04/28 1346 DC 04/29 Sodium Chloride 50 ML IV 1029 Sodium Bicarbonate 100 MEQ ONCE ONE 04/29 0915 DC 04/29 Dextrose/Water 1,000 ML IV 04/29 2234 0955 Sodium Bicarbonate 75 MEQ Q13H 04/28 1130 DC 04/28 Sodium Chloride 1,000 ML IV 04/29 0029 1148 Sodium Chloride 1,000 ML Q8H 04/28 1330 DC 04/29 IV 0645 Vancomycin HCl 1,000 MG ONCE ONE 04/29 0915 DC 04/29 Dextrose/Water 250 ML IV 04/29 1014 1021 Results Results: Laboratory Tests 04/29 04/29 04/29 1836 1155 0610 Blood Gas pH (7.35 - 7.45 PH) 7.42 7.41 pCO2 (35 - 45 TORR) 23 L 20 L pO2 (80 - 100 TORR) 108 H 119 H HCO3 (21 - 28 MEQ/L) 15 L 12 L ABG O2 Sat (Measured) (>96.0 %) 97.0 98.0 P-50 (Temp Corrected) N Carboxyhemoglobin (1.5 - 5.0 %) 0.3 L 0.3 L O2 Concentration % 2LPM .25 Respiration Rate (BPM) 20 O2 Delivery Method NC BIPAP Vent Mode ST Expiratory Pressure (CM H2O P) 6 Inspiratory Pressure (CM H2O P) 18 Chemistry Sodium Cancelled Miscellaneous Phlebotomy Draw Site LEFT RADIAL RIGHT RADIAL 04/29 0345 Chemistry Sodium (137 - 145 mmol/L) 145 Potassium (3.5 - 5.1 mmol/L) 4.5 Chloride (98 - 107 mmol/L) 114 H Carbon Dioxide (22 - 30 mmol/L) 15 L Anion Gap (5 - 16) 16 BUN (9 - 20 mg/dL) 50 H Creatinine (0.7 - 1.2 mg/dL) 1.9 H Estimated GFR (>60 ml/min) 37 L Glucose (65 - 99 mg/dL) 183 H Lactic Acid (0.7 - 2.1 mmol/L) 2.3 H Calcium (8.4 - 10.2 mg/dL) 7.6 L Phosphorus (2.5 - 4.5 mg/dL) 4.3 Magnesium (1.6 - 2.3 mg/dL) 1.7 Total Bilirubin (0.2 - 1.3 mg/dL) 0.4 AST (17 - 59 U/L) 683 H ALT (21 - 72 U/L) 448 H Albumin (3.5 - 5.0 g/dL) 3.3 L Coagulation PT (9.4 - 12.5 SEC) 16.0 H INR (0.90 - 1.17) 1.53 H Hematology CBC w Diff NO MAN DIFF REQ WBC (4.8 - 10.8 /CUMM) 14.8 H RBC (4.70 - 6.10 /CUMM) 3.10 L Hgb (14.0 - 18.0 G/DL) 9.1 L Hct (42 - 52 %) 26.8 L MCV (80.0 - 94.0 FL) 86.5 MCH (27.0 - 31.0 PG) 29.5 RDW (11.5 - 14.5 %) 19.2 H Plt Count (130 - 400 /CUMM) 87 L MPV (7.4 - 10.4 FL) 9.0 Gran % (42.2 - 75.2 %) 92.7 H Lymphocytes % (20.5 - 51.1 %) 5.1 L Monocytes % (1.7 - 9.3 %) 2.1 Eosinophils % (0 - 5 %) 0.1 Basophils % (0.0 - 2.0 %) 0 L Absolute Granulocytes (1.4 - 6.5 /CUMM) 13.7 H Absolute Lymphocytes (1.2 - 3.4 /CUMM) 0.7 L Absolute Monocytes (0.10 - 0.60 /CUMM) 0.3 Absolute Eosinophils (0.0 - 0.7 /CUMM) 0 Absolute Basophils (0.0 - 0.2 /CUMM) 0 PUBS MCHC (33.0 - 37.0 G/DL) 34.1 Toxicology Random Vancomycin (ug/ml) 8.8 BCx (04/28/16): NGTD UCx (04/28/16): NGTD CXR Findings: No evidence of pulmonary edema. No significant change in some left retrocardiac density consistent with minor atelectasis. Some prominence of the right hilum which may be related to lymph node or vascularity. There is some prominence of the paratracheal soft tissues which may be related to lipomatous tissue or possible lymph nodes. Impression/Plan Impression/Problem List Impression: 60 y/o M with PMHx of glioblastoma multiforme on chemotherapy and T2DM who is admitted for presumed septic shock with multisystem organ failure of unclear source. Problem List: 1. Glioblastoma multiforme 2. T2DM (type 2 diabetes mellitus) 3. Gout 4. Acute hypoxemic respiratory failure 5. Septic shock 6. Lactic acidosis 7. ATN (acute tubular necrosis) 8. Hypernatremia 9. Thrombocytopenia 10. Multisystem organ failure 11. Shock liver Pain Ratin Tomorrow's Labs & Rationales: CBC and ICU bundle (ICU patient) INR in the setting of suspected coagulopathy Random vancomycin level for vancomycin dosing Plan Respiratory: #Acute hypoxemic respiratory failure: Resolved. Patient was successfully weaned off BiPAP to room air. Repeat ABG after removal of BiPAP 7.42/23/108/15. * Provide supplemental oxygen as needed to keep SpO2 > 92%. Infectious Diseases: #Septic shock: Of unclear etiology, but potential etiologies include UTI given pyuria and indwelling Lara, pneumonia given altered mental status and respiratory distress on admission as well as history of seizures or an intraabdominal process. On day 2 of vancomycin and ceftazidime with drastic improvement. BCx and UCx negative so far. * Follow BCx and UCx. * Continue ceftazidime 1 g IV daily. * Continue vancomycin. Check random vancomycin level in the AM and redose accordingly in the setting of STEFAN. Cardiovascular: #Septic shock: Remains hemodynamically stable off IV Levophed which was discontinued overnight. * Monitor hemodynamics closely. * Continue maintenance fluids. Hematology: #Thrombocytopenia: Platelets were 210 on admission but have dropped to 87 today. Has not received heparin during this admission. * Oncology was consulted who feel that etiology is most likely multifactorial, caused by a combination of bone marrow suppression 2/2 sepsis, increased consumption related to DIC during sepsis and chemotherapy. Do not recommend further evaluation or intervention at this time. * Continue to monitor platelet count daily. Metabolic: #STEFAN: Cr has significantly improved from 5.7 on admission to 1.9 today. Most likely etiology is ischemic and likely septic ATN. * No plans for dialysis at this time per nephrology. * Continue IVF resuscitation. * Avoid nephrotoxic agents including IV contrast. #Hypernatremia: Na has increased to 145 this AM from 138 on admission. Most likely to the sodium containing bicarbonate drip that patient was on. * Change maintenance fluids to D5W-1/2NS @ 75 cc/hr. #Lactic acidosis: Profound lactic acidosis to 12.1 has resolved and lactate has come down to 1.7. Severe metabolic acidosis is improving, bicarbonate 15 today, improved from <5 yesterday. * Administer 100 mEq of sodium bicarbonate in 1 L of D5W @ 75 cc/hr. #Hyperkalemia: K has improved to 4.5 from 6.1 on initial presentation. Secondary to STEFAN and decreased K excretion. * Continue to monitor K. #Shock liver: LFTs were normal on admission but have trended up to ALT 683 and 448. Most likely 2/2 septic shock. * Continue to monitor LFTs. #T2DM: Takes glimepride 2 mg PO daily. * Hold oral hypoglycemic agents while inpatient. * Accu-checks and Novolog TIDAC/QHS sliding scale. #Gout: Takes allopurinol 300 mg PO daily and colcichine 0.6 mg PO daily. * Hold prior to admission gout medications for now. Alimentary: Consistent Carbohydrate 2 Neurological: #Glioblastoma multiforme: Complicated by seizures and intracranial bleed in 2015 requiring clot evacuation. Follows with Dr. Knott in [place]. On chemotherapy with procarbazine/lomustine/vincristine. Poor performance status with left- sideed hemiparesis at baseline. * Continue prior to admission antiseizure medications phenytoin 200 mg PO daily and 300 mg PO QHS, Keppra 500 mg PO BID and Vimpat 100 mg PO Q12H now that patient is able to take pO. * Continue dexamethasone 2 mg PO Q8H. * Continue prior to admission chemotherapy agent procarbazine 100 mg PO QHS. As medication is not available in the pharmacy, will ask patient's to bring medication. DVT/Prophylaxis: mechanical Code Status: Do Not Resucitate/Intubat
--- NOTE | 2016-04-29 09:04 | PN- Pulmonary ---
Subjective HPI/Critical Care Issues: She seems more awake alert hemodynamics have improved pressors have been discontinued urine output is improved patient's renal failure and acidosis appears to be slowly improving Objective Current Medications: Current Medications Sig/Ness Start time Last Medication Dose Route Stop Time Status Admin Acetaminophen 1,000 MG Q6P PRN 04/28 1315 AC IV Albuterol Sulfate 3 ML ONCE ONE 04/28 1015 DC 04/28 INH 04/28 1016 1148 Ceftazidime 1,000 MG DAILY 04/29 1000 AC IV Ceftazidime 0 .STK-MED ONE 04/28 1026 DC .ROUTE Dexamethasone 2 MG Q8 04/28 1400 AC 04/29 Dextrose/Water 50 ML IV 0531 Insulin Aspart 0 TIDAC 04/28 1700 CAN SC Insulin Human Regular 0 Q6 04/28 1800 AC 04/29 SC 0613 Ipratropium [place] 2.5 ML ONCE ONE 04/28 1015 DC 04/28 INH 04/28 1016 1242 Lacosamide 100 MG Q12H 04/28 1800 AC 04/29 Sodium Chloride 100 ML IV 0613 Levetiracetam 500 MG BID 04/28 1344 AC 04/28 Sodium Chloride 100 ML IV 2204 Magnesium Sulfate 1 GM ONCE ONE 04/29 0830 AC 04/29 Dextrose/Water 100 ML IV 04/29 1229 0838 Methylprednisolone 125 MG ONCE ONE 04/28 1015 DC 04/28 IV 04/28 1016 1148 Methylprednisolone 0 .STK-MED ONE 04/28 1002 DC .ROUTE Non-Formulary 0 SEE ADMIN CRITERIA 04/28 1400 CAN Medication ANY Non-Formulary 0 SEE ADMIN CRITERIA 04/28 1400 DC Medication ANY Norepinephrine 4 MG Q3H 04/28 1500 DC 04/29 Sodium Chloride 250 ML IV 0350 Norepinephrine 4 MG ONCE ONE 04/28 1200 DC 04/28 Sodium Chloride 250 ML IV 04/29 0029 1204 Norepinephrine 0 .STK-MED ONE 04/28 1111 DC IV Norepinephrine 0 .STK-MED ONE 04/28 1051 DC IV Pantoprazole Sodium 40 MG DAILY 04/28 1344 AC 04/28 IV 1659 Phenytoin 300 MG AT BEDTIME 04/28 2200 AC 04/28 Sodium Chloride 50 ML IV 2203 Phenytoin 200 MG DAILY 04/28 1346 AC 04/28 Sodium Chloride 50 ML IV 1721 Sodium Bicarbonate 75 MEQ Q13H 04/28 1130 DC 03/03 Sodium Chloride 1,000 ML IV 03/ 0029 1148 Sodium Bicarbonate 50 MEQ ONCE ONE / 1130 DC 03/03 IV 03/ 1131 1148 Sodium Bicarbonate 50 MEQ ONCE ONE 04/28 1130 DC 03/03 IV 03/ 1131 1148 Sodium Chloride 1,000 ML Q8H / 1330 AC 03/ IV 0645 Sodium Chloride 1,000 ML BOLUS ONE 04/28 1300 DC 03/03 IV 03/ 1359 1305 Sodium Chloride 1,000 ML BOLUS ONE 04/28 1200 DC 03/03 IV 03/ 1259 1148 Sodium Chloride 1,000 ML BOLUS ONE 04/28 1200 DC 03/03 IV 03/ 1259 1148 Sodium Chloride 1,000 ML BOLUS ONE 04/28 1015 DC 03/ IV 03/ 1114 1148 Vancomycin HCl 0 .STK-MED ONE 04/28 1026 DC .ROUTE Vital Signs & I&O Last 24 Hrs of Vitals and I&O: Vital Signs Date Time Temp Pulse Resp B/P Pulse O2 O2 Flow FiO2 Ox Delivery Rate / 0758 109 100 03/04 0549 102 100 03/04 0400 96 BIPAP 25% 03/04 0350 104 110/64 03/04 0254 104 99 03/04 0035 99 99 03/04 0000 100 BIPAP 25% 03/04 0000 96.8 110 30 118/80 100 BIPAP 25% 03/03 2346 96.8 110 30 118/80 03/03 2248 99 98 03/03 2108 103 20 113/85 /2016 96 BIPAP 25% 03/03 1925 96 99 03/03 1817 98 110/75 03/03 1630 95 95 03/03 1600 96.8 100 18 110/68 97 BIPAP 30% 03/03 1600 97 BIPAP 30% 03/03 1515 97 82/62 03/03 1434 103 100 03/03 1430 99 BIPAP 30% 03/03 1430 96.9 100 21 110/70 100 BIPAP 30% 03/03 1355 98.2 103 20 102/60 100 BIPAP 03/03 1329 107 20 115/62 100 BIPAP 30% 03/03 1324 98.6 103 20 94/63 99 BIPAP 30% 03/03 1309 97.6 105 20 97/57 100 BIPAP 03/03 1305 71/43 03/03 1235 123 99 03/03 1214 109 119/58 03/03 1209 107 24 116/62 98 BIPAP 03/ 1204 120 24 99/55 03/03 1203 97.9 109 24 83/55 100 BIPAP 03/03 1159 71/49 03/03 1157 118 89/55 03/03 1152 120 24 99/55 99 BIPAP 04/28 1137 99 6.0L / 1136 123 100 03/ 1128 128 130/67 100 BIPAP 03/ 0957 148 58/30 03/ 0957 54 Intake & Output / 1600 / 0800 / 0000 Intake Total 1623 2757 Output Total 400 350 Balance 1223 2407 Intake, IV 1623 2757 Number 2 Bowel Movements Output, Urine 400 350 Patient 191 lb Weight Hemodynamics are improved he is able to follow commands of his chest shows clear lung kang cardiac exam shows normal S1 and S2 without murmurs abdominal exam is soft and tender Impression/Plan Impression/Plan Impression/Plan: D10-year-old with no blastoma admitted with sepsis hypotension and metabolic acidosis renal failure. He appears to have improved pressors have been able to be discontinued cultures remain negative he has developed mild hypernatremia hyperchloremia and thrombocytopenia Recommendations: DC D5W half-normal 1-1/2 A of bicarbonate and began D5W with 2 A of bicarbonate at 75 mL an hour. DC normal saline again D5W half-normal saline at 75 mL an hour. Continue antibiotics pending cultures. Oncology follow-up as it pertains to his developing thrombocytopenia. Trial off of BiPAP. Check chest x-ray this morning
--- NOTE | 2016-04-29 12:28 | RADIOLOGY REPORT ---
EXAMINATION: XR PORTABLE CHEST CLINICAL INFORMATION: Septic shock with unclear source COMPARISON: April 28, 2016 TECHNIQUE: Portable AP portable view of the chest was obtained. FINDINGS: There are small lung volumes. There is some mild prominence of the right hilum and paratracheal soft tissues. There is some indistinctness of the left hemidiaphragm and left heart border. No pneumothorax or significant pleural effusion identified. Right internal jugular port catheter seen in place. Right clavicle fracture is evident. Heart normal size. No evidence of pulmonary edema. IMPRESSION: No evidence of pulmonary edema. No significant change in some left retrocardiac density consistent with minor atelectasis. Some prominence of the right hilum which may be related to lymph node or vascularity. There is some prominence of the paratracheal soft tissues which may be related to lipomatous tissue or possible lymph nodes.
--- NOTE | 2016-04-29 14:20 | Cons- Oncology ---
General Information and HPI Consulting Request Date of Consult: 04/29/16 Requested By: VERITO LAFLEUR MD Reason for Consult: assist in eval and mgmt in sepsis syndrome, GBM and thrombocytopenia Source of Information: patient, family, old records Exam Limitations: no limitations History of Present Illness: ID: Kadi 60 y/o gentleman undergoing palliative chemotherapy for glioma transitioning to GBM admit 04/28/16 from [facility] with severe sepsis syndrome marked by AMS, respiratory distress, refractory hypotension, ARF and profound lactic acidosis, all remarkably improving with supportive care and antibiotics. 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 Serial MRI showed slow progression over years. 2014- developed seizures and 07/2014 underwent second debulking surgery. Tumor IDH-1 mutation +ve and MGMT methylated. [id number]- treated with variety of chemotherapy regimens including Temodar and CPT-11/Avastin. MRI brain 09/2015 showed response to first 3 cycles CPT-11/ Avastin. 03/23/16- MRI done for functional decline and more seizures/falls as well as worsening L sided weakness. MRI revealed POD particularly within corpus callosum and L frontal lobe. In consultation with Dr. Parks, elected to proceed with trial PCV chemotherapy 04/03/16- admit [facility] before starting chemo due to fall with seizure. Hospital course c/b fever thought secondary to aspiration and gout attack. Dischaged 04/13/16 to [place]. Unfortunately, became weaker at [place] and insurance disallowed acute rehab stay. He did have one febrile episode at [place] coinciding with swelling and pain in R hand/wrist treated with IV vancomycin and gout therapy. 04/27/16- transferred to [facility] for subacute rehab. 04/28/16 became less responsive and had increasing resp distress. Transferred to [facility] where found to be hypotensive, hypoxic and to have profound metabolic/lactic acidosis and acute renal failure with Cr 5.9. Robb discussion occured with treating team, Dr. Knott and Marvin's and elected to proceed with maximal supportive care but no mechanical ventilation or dialysis. Remarkably, he's improved dramatically overnight and managed to wean of BiPAP, levophed. His lactate level and Cr are both dramatically improved. Urine and blood cultures remain NTD. He has had progressive thrombocytopenia. 04/13/16 plt count was 286 (day 10 PCV chemo), plts were 210 on admit and have decreased to 87 today. WBC was elevated on admission and Hb was in 9 range. He has not had bleeding or oozing. Allergies/Medications Allergies: Coded Allergies: No Known Allergies (04/28/16) Home Med List: Allopurinol 300 MG TABLET 1 TAB PO DAILY gout (Reported) Reason to Stop at ADM:STEFAN Colchicine 0.6 MG TABLET 1 TAB PO DAILY GOUT (Reported) Reason to Stop at ADM:STEFAN Dexamethasone 2 MG TABLET 2 MG PO Q8 PRN BRAIN TUMOR (Reported) Reason to Stop at ADM:CHANGED TO IV Dronabinol (Marinol) 2.5 MG CAPSULE 1 CAP PO BID N/V (Reported) Reason to Stop at ADM: ON ZOFRAN Folic Acid 1 MG TABLET 1 TAB PO DAILY SUPPLEMENT (Reported) Gabapentin (Neurontin) 300 MG CAPSULE 1 CAP PO TID NEUROGENIC PAIN (Reported) Glimepiride (Amaryl) 2 MG TABLET 2 MG PO DAILY DIABETES (Reported) Reason to Stop at ADM:ISS Lacosamide (Vimpat) 200 MG TABLET 1 TAB PO BID SEIZURES (Reported) Reason to Stop at ADM:PO TO IV Levetiracetam (Keppra) 500 MG TABLET 1 TAB PO BID SEIZURE (Reported) Reason to Stop at ADM:PO TO IV Metoprolol Tartrate (Lopressor) 50 MG TABLET 25 MG PO BID BP (Reported) Reason to Stop at ADM:SHOCK Nut.tx.glucose Intolerance,Soy (Glucerna) 1 EACH BAR 1 BAR PO BID SUPPLEMENT (Reported) Pantoprazole Sodium (Protonix) 40 MG TABLET.DR 1 TAB PO DAILY GI (Reported) Phenytoin (Dilantin) 100 MG CAPSULE 2 CAP PO TID SEIZURE (Reported) Phenytoin (Dilantin) 100 MG CAPSULE 300 MG PO BEDTIME SEIZURES (Reported) Procarbazine Hydrochloride (Matulane) 50 MG CAPSULE 100 MG PO BEDTIME CANCER (Reported) Thiamine HCl 100 MG TABLET 1 TAB PO DAILY SUPPLEMENT (Reported) Current Medications: Current Medications Sig/Ness Start time Last Medication Dose Route Stop Time Status Admin Acetaminophen 1,000 MG Q6P PRN 04/28 1315 AC IV Ceftazidime 1,000 MG DAILY 04/29 1000 AC 04/29 IV 1001 Dexamethasone 2 MG Q8 04/28 1400 AC 04/29 Dextrose/Water 50 ML IV 1345 Dextrose/Sodium 1,000 ML Q13H 04/29 0900 AC 04/29 Chloride IV 0953 Insulin Aspart 0 TIDAC 04/28 1700 CAN SC Insulin Human Regular 0 Q6 04/28 1800 AC 04/29 SC 1205 Lacosamide 100 MG Q12H 04/28 1800 AC 04/29 Sodium Chloride 100 ML IV 0613 Levetiracetam 500 MG BID 04/28 1344 AC 04/29 Sodium Chloride 100 ML IV 0956 Magnesium Sulfate 1 GM ONCE ONE 04/29 0830 DC 04/29 Dextrose/Water 100 ML IV 04/29 1229 0838 Non-Formulary 0 SEE ADMIN CRITERIA 04/28 1400 CAN Medication ANY Non-Formulary 0 SEE ADMIN CRITERIA 04/28 1400 DC Medication ANY Norepinephrine 4 MG Q3H 04/28 1500 DC 04/29 Sodium Chloride 250 ML IV 0350 Norepinephrine 4 MG ONCE ONE 04/28 1200 DC 04/28 Sodium Chloride 250 ML IV 04/29 0029 1204 Pantoprazole Sodium 40 MG DAILY 04/28 1344 AC 04/29 IV 1001 Phenytoin 300 MG AT BEDTIME 04/28 2200 AC 04/28 Sodium Chloride 50 ML IV 2203 Phenytoin 200 MG DAILY 04/28 1346 AC 04/29 Sodium Chloride 50 ML IV 1029 Sodium Bicarbonate 100 MEQ ONCE ONE 04/29 0915 AC 04/29 Dextrose/Water 1,000 ML IV 04/29 2234 0955 Sodium Bicarbonate 75 MEQ Q13H 04/28 1130 DC 04/28 Sodium Chloride 1,000 ML IV 04/29 0029 1148 Sodium Chloride 1,000 ML Q8H 04/28 1330 DC 04/29 IV 0645 Vancomycin HCl 1,000 MG ONCE ONE 04/29 0915 DC 04/29 Dextrose/Water 250 ML IV 04/29 1014 1021 Review of Systems Review of Systems: 12 system ROS reviewed and except for that mentioned in HPI is neg. Review of Systems Constitutional: Reports: malaise, weakness. Denies: chills, diaphoresis, fever. EENTM: Denies: blurred vision. Cardiovascular: Denies: chest pain. Respiratory: Denies: cough, hemoptysis, short of breath. GI: Denies: abdominal pain. Genitourinary: Denies: discharge. Musculoskeletal: Denies: back pain. Skin: Denies: cysts, change in skin color, change in hair/nails. Neurological/Psychological: Reports: cognitive dysfunction. Denies: anxiety. Hematologic/Endocrine: Denies: bruising, bleeding. Immunologic/Allergic: Denies: splenectomy. All Other Systems: Reviewed and Negative Past History Travel History Traveled to [place] past 21 day No Medical History Blood Transfusion Hx: Yes Type of Reaction: none Neurological: seizure, glioblastoma multiforme EENT: NONE Cardiovascular: hypertension Respiratory: NONE Gastrointestinal: BLEEDING ULCER 2004 Hepatic: NONE Renal: NONE Musculoskeletal: gout Psychiatric: NONE Endocrine: diabetes Blood Disorders: NONE IVC FILTER Cancer(s): GLIOBLASTOMA DIRECTOR OF DIGITAL PLATFORMS/Reproductive: NONE Surgical History Surgical History: resection of oligoastrocytoma evacuation of intracranial bleed Psychosocial History Where Do You Live? [facility]hab Who Do You Live With? spouse Services at Home: [facility] Primary Language: Divehi Smoking Status: Former Smoker ETOH Use: occasional use Illicit Drug Use: denies illicit drug use Living Will? yes Power of Typewriter Ribbon Winder/HCP? yes Name of POA/HCP: Functional Ability ADLs Needs Assist: dressing, eating, toileting, bathing. Ambulation: non-ambulatory IADLs Needs Assist: shopping, housework, finances, food prep, telephone, transportation, medication admin. Employment History Employment: Unemployed Exam & Diagnostic Data Vital Signs and I&O Vital Signs Date Time Temp Pulse Resp B/P Pulse O2 O2 Flow FiO2 Ox Delivery Rate / 1200 95 Room Air 03/ 0800 99 BIPAP 25% / 0800 98.1 108 18 110/70 100 BIPAP 25% 03/04 0758 109 100 03/04 0549 102 100 03/04 0400 96 BIPAP 25% 03/04 0350 104 110/64 03/04 0254 104 99 03/04 0035 99 99 03/04 0000 100 BIPAP 25% 03/04 0000 96.8 110 30 118/80 100 BIPAP 25% 03/03 2346 96.8 110 30 118/80 03/03 2248 99 98 03/03 2108 103 20 113/85 03/03 2017 96 BIPAP 25% 03/03 1925 96 99 03/03 1817 98 110/75 03/03 1630 95 95 03/03 1600 96.8 100 18 110/68 97 BIPAP 30% 03/03 1600 97 BIPAP 30% 03/03 1515 97 82/62 03/03 1434 103 100 04/28 1430 99 BIPAP 30% 04/28 1430 96.9 100 21 110/70 100 BIPAP 30% Intake & Output 04/29 1600 04/29 0800 04/29 0000 Intake Total 1623 2757 Output Total 400 350 Balance 1223 2407 Intake, IV 1623 2757 Number 2 Bowel Movements Output, Urine 400 350 Patient 191 lb Weight Lab Ur Epithelial Cells FEW 04/28/16 1230 Urine Bacteria MANY H 04/28/16 1230 Urine Glucose 100 MG/DL H 04/28/16 1230 Patient : MARVIN BERNSTEIN Acct: [id number] DR: VERITO LAFLEUR MD Birthdate: [birth year] Age/Sex: 60/M Unit: [id number] Loc: [facility] Status : ADM IN SPEC #: [id number] JEFF: 04/28/16 STATUS: RES RECD: 04/28/16-[address]: CHANEL STEVE,NICKI SOURCE: URINE ROUT ENTR: 04/28/16-[address]: SPDESC: URINE FOLE ORDERED: URINE CULTURE Procedure Result > URINE CULTURE Preliminary 04/29/16 NO GROWTH AFTER 1 DAY Physical Exam: PE chr ill appearing R frontal scalp scar unremarkable neck supple o/p clr RRR LCTA ant ABD non distended, soft painting draining concentrated yellow urine No edema neuorlogically awake, alert. Occ pulling at painting. Able to answer simple questions. Not moving L side Last 48 Hours of Lab Results: Laboratory Tests 04/29 04/29 1155 0610 Blood Gas pH (7.35 - 7.45 PH) 7.42 7.41 pCO2 (35 - 45 TORR) 23 L 20 L pO2 (80 - 100 TORR) 108 H 119 H HCO3 (21 - 28 MEQ/L) 15 L 12 L ABG O2 Sat (Measured) (>96.0 %) 97.0 98.0 P-50 (Temp Corrected) N Carboxyhemoglobin (1.5 - 5.0 %) 0.3 L 0.3 L O2 Concentration % 2LPM .25 Respiration Rate (BPM) 20 O2 Delivery Method NC BIPAP Vent Mode ST Expiratory Pressure (CM H2O P) 6 Inspiratory Pressure (CM H2O P) 18 Miscellaneous Phlebotomy Draw Site LEFT RADIAL RIGHT RADIAL 04/29 04/28 5092 1954 Chemistry Sodium (137 - 145 mmol/L) 145 Potassium (3.5 - 5.1 mmol/L) 4.5 Chloride (98 - 107 mmol/L) 114 H Carbon Dioxide (22 - 30 mmol/L) 15 L Anion Gap (5 - 16) 16 BUN (9 - 20 mg/dL) 50 H Creatinine (0.7 - 1.2 mg/dL) 1.9 H Estimated GFR (>60 ml/min) 37 L Glucose (65 - 99 mg/dL) 183 H Lactic Acid (0.7 - 2.1 mmol/L) 2.3 H 1.7 Calcium (8.4 - 10.2 mg/dL) 7.6 L Phosphorus (2.5 - 4.5 mg/dL) 4.3 Magnesium (1.6 - 2.3 mg/dL) 1.7 Total Bilirubin (0.2 - 1.3 mg/dL) 0.4 AST (17 - 59 U/L) 683 H ALT (21 - 72 U/L) 448 H Albumin (3.5 - 5.0 g/dL) 3.3 L Coagulation PT (9.4 - 12.5 SEC) 16.0 H INR (0.90 - 1.17) 1.53 H Hematology CBC w Diff NO MAN DIFF REQ WBC (4.8 - 10.8 /CUMM) 14.8 H RBC (4.70 - 6.10 /CUMM) 3.10 L Hgb (14.0 - 18.0 G/DL) 9.1 L Hct (42 - 52 %) 26.8 L MCV (80.0 - 94.0 FL) 86.5 MCH (27.0 - 31.0 PG) 29.5 RDW (11.5 - 14.5 %) 19.2 H Plt Count (130 - 400 /CUMM) 87 L MPV (7.4 - 10.4 FL) 9.0 Gran % (42.2 - 75.2 %) 92.7 H Lymphocytes % (20.5 - 51.1 %) 5.1 L Monocytes % (1.7 - 9.3 %) 2.1 Eosinophils % (0 - 5 %) 0.1 Basophils % (0.0 - 2.0 %) 0 L Absolute Granulocytes (1.4 - 6.5 /CUMM) 13.7 H Absolute Lymphocytes (1.2 - 3.4 /CUMM) 0.7 L Absolute Monocytes (0.10 - 0.60 /CUMM) 0.3 Absolute Eosinophils (0.0 - 0.7 /CUMM) 0 Absolute Basophils (0.0 - 0.2 /CUMM) 0 PUBS MCHC (33.0 - 37.0 G/DL) 34.1 Toxicology Random Vancomycin (ug/ml) 8.8 0303 0303 1700 1650 Chemistry Sodium (137 - 145 mmol/L) 140 Potassium (3.5 - 5.1 mmol/L) 4.9 Chloride (98 - 107 mmol/L) 111 H Carbon Dioxide (22 - 30 mmol/L) 15 L Anion Gap (5 - 16) 14 BUN (9 - 20 mg/dL) 54 H Creatinine (0.7 - 1.2 mg/dL) 3.4 H Estimated GFR (>60 ml/min) 19 L Glucose (65 - 99 mg/dL) 301 H Lactic Acid (0.7 - 2.1 mmol/L) 3.4 H Cancelled Calcium (8.4 - 10.2 mg/dL) 7.2 L Phosphorus (2.5 - 4.5 mg/dL) 6.3 H Magnesium (1.6 - 2.3 mg/dL) 1.7 Total Bilirubin (0.2 - 1.3 mg/dL) 0.5 AST (17 - 59 U/L) 340 H ALT (21 - 72 U/L) 190 H Albumin (3.5 - 5.0 g/dL) 3.0 L Coagulation PT (9.4 - 12.5 SEC) 16.2 H INR (0.90 - 1.17) 1.55 H Hematology CBC w Diff MAN DIFF ORDERED WBC (4.8 - 10.8 /CUMM) 23.8 H RBC (4.70 - 6.10 /CUMM) 3.11 L Hgb (14.0 - 18.0 G/DL) 9.4 L Hct (42 - 52 %) 27.3 L MCV (80.0 - 94.0 FL) 87.8 MCH (27.0 - 31.0 PG) 30.1 RDW (11.5 - 14.5 %) 19.4 H Plt Count (130 - 400 /CUMM) 127 L MPV (7.4 - 10.4 FL) 8.1 Gran % (42.2 - 75.2 %) 94.9 H Lymphocytes % (20.5 - 51.1 %) 3.8 L Monocytes % (1.7 - 9.3 %) 1.3 L Eosinophils % (0 - 5 %) 0 Basophils % (0.0 - 2.0 %) 0 L Absolute Granulocytes (1.4 - 6.5 /CUMM) 22.6 H Segmented Neutrophils (42.2 - 75.2 %) 84 H Band Neutrophils (0.0 - 5.0 %) 12 H Absolute Lymphocytes (1.2 - 3.4 /CUMM) 0.9 L Lymphocytes (20.5 - 51.1 %) 3 L Absolute Monocytes (0.10 - 0.60 /CUMM) 0.3 Absolute Eosinophils (0.0 - 0.7 /CUMM) 0 Absolute Basophils (0.0 - 0.2 /CUMM) 0 Metamyelocytes (0.0 - 1.0 %) 1 Platelet Estimate (ADEQUATE) DECREASED Polychromasia 1+ Anisocytosis 2+ Microcytic Cells 1+ PUBS MCHC (33.0 - 37.0 G/DL) 34.3 04/28 04/28 04/28 04/28 1620 1318 1253 1253 Blood Gas pH (7.35 - 7.45 PH) 7.31 L pCO2 (35 - 45 TORR) 22 L pO2 (80 - 100 TORR) 114 H HCO3 (21 - 28 MEQ/L) 11 L ABG O2 Sat (Measured) (>96.0 %) 97.0 P-50 (Temp Corrected) N Carboxyhemoglobin (1.5 - 5.0 %) 0.1 L O2 Concentration % 30% Temperature (97.0 - 100.0 FARH) 97.0 Respiration Rate (BPM) 20 O2 Delivery Method BIPAP Vent Mode ST Expiratory Pressure (CM H2O P) 6 Inspiratory Pressure (CM H2O P) 18 Chemistry Sodium (137 - 145 mmol/L) 142 Potassium (3.5 - 5.1 mmol/L) 5.0 Chloride (98 - 107 mmol/L) 114 H Carbon Dioxide (22 - 30 mmol/L) 8 *L Anion Gap (5 - 16) 20 H BUN (9 - 20 mg/dL) 55 H Creatinine (0.7 - 1.2 mg/dL) 4.4 H Estimated GFR (>60 ml/min) 14 L BUN/Creatinine Ratio (7 - 25 %) 12.5 Glucose (65 - 99 mg/dL) 247 H Lactic Acid (0.7 - 2.1 mmol/L) 8.5 H Calcium (8.4 - 10.2 mg/dL) 7.0 L Coagulation Fibrin Degrad Products (< 10 ug/ml) > 40 ug/ml H Miscellaneous Phlebotomy Draw Site RIGHT RADIAL 04/28 04/28 1230 1210 Blood Gas pH (7.35 - 7.45 PH) 7.24 *L pCO2 (35 - 45 TORR) 16 L pO2 (80 - 100 TORR) 135 H HCO3 (21 - 28 MEQ/L) 7 L ABG O2 Sat (Measured) (>96.0 %) 97.0 Carboxyhemoglobin (1.5 - 5.0 %) 0.6 L O2 Concentration % 30 Respiration Rate (BPM) 24 O2 Delivery Method BIPAP Vent Mode ST Expiratory Pressure (CM H2O P) 10 Inspiratory Pressure (CM H2O P) 20 Miscellaneous Phlebotomy Draw Site RIGHT RADIAL Urines Urinalysis HEAVY H Urine Color (YEL,AMB,STR) YEL Urine Clarity (CLEAR) HAZY H Urine pH (5.0 - 8.0) 6.0 Ur Specific [place] (1.001 - 1.035) >= 1.030 Urine Protein (NEG,<30 MG/DL) >=300 H Urine Ketones (NEG) NEG Urine Nitrite (NEG) NEG Urine Bilirubin (NEG) NEG@ICTO Urine Urobilinogen (0.1 - 1.0 EU/dl) 0.2 Ur Leukocyte Esterase (NEG) TRACE H Ur Microscopic SEDIMENT EXAMINED Urine RBC (0 - 5 /HPF) 25-50 H Urine WBC (0 - 2 /HPF) 50-75 H Ur Epithelial Cells (NONE,FEW) FEW Urine Bacteria (NEG/NONE) MANY H Urine Hemoglobin (NEG) LARGE H Urine Glucose (N MG/DL) 100 H 04/28 04/28 1110 1100 Blood Gas pH (7.35 - 7.45 PH) 7.01 *L pCO2 (35 - 45 TORR) 17 L pO2 (80 - 100 TORR) 432 H HCO3 (21 - 28 MEQ/L) 4 L ABG O2 Sat (Measured) (>96.0 %) 99.0 Carboxyhemoglobin (1.5 - 5.0 %) 0.4 L O2 Concentration % 100% Respiration Rate (BPM) 24 O2 Delivery Method BIPAP Vent Mode ST Expiratory Pressure (CM H2O P) 10 Inspiratory Pressure (CM H2O P) 20 Chemistry Sodium (137 - 145 mmol/L) 138 Potassium (3.5 - 5.1 mmol/L) 6.1 *H Chloride (98 - 107 mmol/L) 109 H Carbon Dioxide (22 - 30 mmol/L) < 5 *L Anion Gap (5 - 16) BUN (9 - 20 mg/dL) 56 H Creatinine (0.7 - 1.2 mg/dL) 5.7 *H Estimated GFR (>60 ml/min) 10 L BUN/Creatinine Ratio (7 - 25 %) 9.8 Glucose (65 - 99 mg/dL) 362 H Lactic Acid (0.7 - 2.1 mmol/L) 12.1 H Calcium (8.4 - 10.2 mg/dL) 8.7 Total Bilirubin (0.2 - 1.3 mg/dL) 0.6 AST (17 - 59 U/L) 31 ALT (21 - 72 U/L) 43 Alkaline Phosphatase (< 127 U/L) 131 H Troponin I (<0.11 ng/ml) < 0.01 Zfo-U-Sudojmeronp Pept (<125 pg/mL) 83.4 Total Protein (6.3 - 8.2 g/dL) 5.8 L Albumin (3.5 - 5.0 g/dL) 3.4 L Globulin (1.9 - 4.2 gm/dL) 2.4 Albumin/Globulin Ratio (1.1 - 2.2 %) 1.4 Coagulation PT (9.4 - 12.5 SEC) 14.6 H INR (0.90 - 1.17) 1.40 H APTT (25 - 37 SEC) 27 Fibrinogen Activity (200 - 393 MG/DL) 338 D-Dimer (70 - 232 ng/ml) > 5250 H Hematology CBC w Diff MAN DIFF ORDERED WBC (4.8 - 10.8 /CUMM) 19.6 H RBC (4.70 - 6.10 /CUMM) 3.37 L Hgb (14.0 - 18.0 G/DL) 9.2 L Hct (42 - 52 %) 29.9 L MCV (80.0 - 94.0 FL) 88.8 MCH (27.0 - 31.0 PG) 27.2 RDW (11.5 - 14.5 %) 19.0 H Plt Count (130 - 400 /CUMM) 210 MPV (7.4 - 10.4 FL) 8.5 Gran % (42.2 - 75.2 %) 73.2 Lymphocytes % (20.5 - 51.1 %) 22.7 Monocytes % (1.7 - 9.3 %) 2.9 Eosinophils % (0 - 5 %) 0.2 Basophils % (0.0 - 2.0 %) 1.0 Absolute Granulocytes (1.4 - 6.5 /CUMM) 14.3 H Segmented Neutrophils (42.2 - 75.2 %) 62 Band Neutrophils (0.0 - 5.0 %) 5 Absolute Lymphocytes (1.2 - 3.4 /CUMM) 4.5 H Lymphocytes (20.5 - 51.1 %) 24 Monocytes (1.7 - 9.3 %) 7 Absolute Monocytes (0.10 - 0.60 /CUMM) 0.6 Absolute Eosinophils (0.0 - 0.7 /CUMM) 0 Absolute Basophils (0.0 - 0.2 /CUMM) 0.2 Metamyelocytes (0.0 - 1.0 %) 2 H Platelet Estimate (ADEQUATE) ADEQUATE Polychromasia 1+ Hypochromic-Microcytic 1+ Poikilocytosis 2+ Anisocytosis 2+ Ovalocytes 2+ PUBS MCHC (33.0 - 37.0 G/DL) 30.7 L Miscellaneous Phlebotomy Draw Site RIGHT RADIAL 04/28 1010 Chemistry Pcf-T-Idckpccquir Pept Cancelled Assessment/Plan Assessment: 60 y/o man with h/o progressive glioma, now likely transformed to GBM, day 25 cycle 1 Procarbazine/Lomustine/Vincristine chemotherapy, admit for [facility] with severe sepsis syndrome. His issues include; 1. sepsis syndrome- likely related to infection, but origin not clear. Urine seems very possible (indwelling painting, + U/a for WBC) but could have aspirated during unwitnessed seizure or have gut translocation of bacteria. He's had remarkable turn around given his underlying disabled state with IVF, brief period of pressors and broad spectrum abx. 2. thrombocytopenia- combination of sepsis suppressing marrow, perhaps some increased consumption related to DIC during sepsis, and chemotherapy. Doubt primary marrow process. He has not received heparin nor was he receiving it at [facility]. Doubt other drug reaction as well given plts decreased immediately after admission and alternate explanations of sepsis and chemotherapy exposure far more plausible. For now,can simply monitor plt count daily. 3. GBM- day 25 cycle 1 PCV. Unfortunately, though he appears to be recovering from this episode of sepsis, his performance status has steadily declined despite initiation of 3rd line chemo even though he has been receiving intensive PT/OT. recognizes poor prognosis and has appropriately limited his level of care but is not yet prepared for hospice. thanks for consult. Please call with questions this [phone] (cell) and after Sunday our office [phone]. Recommendations: 60 y/o man with h/o progressive glioma, now likely transformed to GBM, day 25 cycle 1 Procarbazine/Lomustine/Vincristine chemotherapy, admit for [facility] with severe sepsis syndrome. His issues include; 1. sepsis syndrome- likely related to infection, but origin not clear. Urine seems very possible (indwelling painting, + U/a for WBC) but could have aspirated during unwitnessed seizure or have gut translocation of bacteria. He's had remarkable turn around given his underlying disabled state with IVF, brief period of pressors and broad spectrum abx. 2. thrombocytopenia- combination of sepsis suppressing marrow, perhaps some increased consumption related to DIC during sepsis, and chemotherapy. Doubt primary marrow process. He has not received heparin nor was he receiving it at [facility]. Doubt other drug reaction as well given plts decreased immediately after admission and alternate explanations of sepsis and chemotherapy exposure far more plausible. For now,can simply monitor plt count daily. 3. GBM- day 25 cycle 1 PCV. Unfortunately, though he appears to be recovering from this episode of sepsis, his performance status has steadily declined despite initiation of 3rd line chemo even though he has been receiving intensive PT/OT. recognizes poor prognosis and has appropriately limited his level of care but is not yet prepared for hospice. thanks for consult. Please call with questions this [phone] (cell) and after Sunday our office [phone]. Problem List: 1. Septic shock 2. Hypotension 3. Lactic acidosis 4. ATN (acute tubular necrosis) 5. Acute hypoxemic respiratory failure 6. Glioblastoma multiforme Consult Acknowledgment - Thank you for your consult request.
[2016-04-29 16:00] VITALS: BP 110/80
[2016-04-30] VITALS: BP 134/78
[2016-04-30 05:00] LABS: ABSOLUTE BASOPHIL COUNT 0 /CUMM (0.0-0.2); ABSOLUTE EOSINOPHIL COUNT 0 /CUMM (0.0-0.7); ABSOLUTE GRANULOCYTE CT 13.8 /CUMM (1.4-6.5); ABSOLUTE LYMPH COUNT 0.7 /CUMM (1.2-3.4); ABSOLUTE MONOCYTE COUNT 0.2 /CUMM (0.10-0.60); BASOPHIL % 0 % (0.0-2.0); EOSINOPHIL % 0 % (0-5); GRANULOCYTE % 93.9 % (42.2-75.2); HEMATOCRIT 25.1 % (42-52); MEAN CORPUSCULAR HGB 29.2 PG (27.0-31.0); MEAN CORPUSCULAR HGB CONC 33.5 G/DL (33.0-37.0); MEAN CORPUSCULAR VOLUME 87.2 FL (80.0-94.0); MEAN PLATELET VOLUME 8.6 FL (7.4-10.4); PLATELET COUNT 76 /CUMM (130-400); RBC DISTRIBUTION WIDTH 19.8 % (11.5-14.5); RED BLOOD CELL CT 2.88 /CUMM (4.70-6.10)
[2016-04-30 05:15] LABS: PT 19.1 SEC (9.4-12.5)
[2016-04-30 05:52] LABS: WHITE BLOOD CELL COUNT 14.7 /CUMM (4.8-10.8)
[2016-04-30 08:00] VITALS: BP 130/76
--- NOTE | 2016-04-30 08:54 | Event Note ---
Event Note Event Note: I called patient's Ellyn Carrera to confirm his medication, stacey Procarbazine , as out pharmacy did not carry it. She told me that the oncologist (Dr Gerson Schmitt, [facility]) informed her yesterday that he no longer needs to be on it starting Apr 25, 2016. Resident notified. Procarbazine is on hold.
--- NOTE | 2016-04-30 09:10 | PN- Pulmonary ---
Subjective HPI/Critical Care Issues: Patient remains hemodynamically stable as well as noted on room air urine output remains adequate Objective Current Medications: Current Medications Sig/Ness Start time Last Medication Dose Route Stop Time Status Admin Acetaminophen 650 MG Q6P PRN 04/29 1900 AC PO Acetaminophen 1,000 MG Q6P PRN 04/28 1315 DC IV Ceftazidime 1,000 MG DAILY 04/29 1000 AC 04/29 IV 1001 Dexamethasone 2 MG Q8 04/29 2200 AC 04/30 PO 0612 Dexamethasone 2 MG Q8 04/28 1400 DC 04/29 Dextrose/Water 50 ML IV 1345 Dextrose/Sodium 1,000 ML Q13H 04/29 0900 AC 04/30 Chloride IV 0202 Insulin Aspart 0 TIDAC 04/30 0800 AC SC Insulin Human Regular 0 Q6 04/28 1800 DC 04/29 SC 1205 Lacosamide 200 MG BID 04/30 1000 AC PO Lacosamide 100 MG Q12H 04/28 1800 DC 04/29 Sodium Chloride 100 ML IV 1742 Levetiracetam 500 MG BID 04/29 2200 AC 04/29 PO 2244 Levetiracetam 500 MG BID 04/28 1344 DC 04/29 Sodium Chloride 100 ML IV 0956 Magnesium Sulfate 1 GM ONCE ONE 04/29 0830 DC 04/29 Dextrose/Water 100 ML IV 04/29 1229 0838 Non-Formulary 0 SEE ADMIN CRITERIA 04/29 1900 UNVr Medication ANY Omeprazole 40 MG DAILY AC 04/30 0700 AC 04/30 PO 0612 Pantoprazole Sodium 40 MG DAILY 04/28 1344 DC 04/29 IV 1001 Phenytoin 200 MG DAILY 04/30 1000 AC PO Phenytoin 300 MG AT BEDTIME 04/29 2200 AC 04/29 PO 2244 Phenytoin 200 MG Q8 04/29 2200 DC PO Phenytoin 300 MG AT BEDTIME 04/28 2200 DC 04/28 Sodium Chloride 50 ML IV 2203 Phenytoin 200 MG DAILY 04/28 1346 DC 04/29 Sodium Chloride 50 ML IV 1029 Sodium Bicarbonate 100 MEQ ONCE ONE 04/29 0815 DC 04/29 Dextrose/Water 1,000 ML IV 04/29 2234 0955 Vancomycin HCl 1,000 MG ONCE ONE 04/30 0900 AC Dextrose/Water 250 ML IV 04/30 0959 Vancomycin HCl 1,000 MG ONCE ONE 04/29 0915 DC 04/29 Dextrose/Water 250 ML IV 04/29 1014 1021 Vital Signs & I&O Last 24 Hrs of Vitals and I&O: Vital Signs Date Time Temp Pulse Resp B/P Pulse O2 O2 Flow FiO2 Ox Delivery Rate 04/30 0045 116 94 / 0000 98.6 118 22 134/78 98 Room Air 04/29 1600 99.0 114 27 110/80 98 Room Air 04/29 1600 97 Room Air 04/29 1200 95 Room Air Intake & Output 04/30 1600 04/30 0800 04/30 0000 Intake Total 816 1225 Output Total 270 300 Balance 546 925 Intake, IV 576 1225 Intake, Oral 240 Number 1 Bowel Movements Output, Urine 270 300 Saturation room air 9894% exam of his chest shows somewhat diminished breath sounds at the bases cardiac exam shows regular S1 and S2 abdomen is soft nontender Impression/Plan Impression/Plan Impression/Plan: D10-year-old with no blastoma admitted with sepsis hypotension and metabolic acidosis renal failure. He appears to have improved pressors have been able to be discontinued cultures remain negative he has developed mild hypernatremia hyperchloremia and thrombocytopenia. Electrolyte abnormalities slowly improving. Oncology evaluation reviewed Recommendations: Continue current IV fluids though rates can be decreased to 50 mL/h. He appears stable for transfer out of the ICU. Continue IV antibiotics pending cultures.
--- NOTE | 2016-04-30 09:32 | PN- Resident CRCU ---
Subjective HPI/CRCU Issues: I followed up and examined the patient today. He is lying in bed, alert, oriented, comfortable and not in any distress, saturating 97% in room air. Vitals have been stable overnight, no issues. Patient is doing clinically better, last 24 hours maximum temperature is 99*F at 1600. 24 Hour Events: VRE surveillance was positive. Objective Vital Signs & I&O Last 8 Hrs of Vitals and I&O: Vital Signs Date Time Temp Pulse Resp B/P Pulse O2 O2 Flow FiO2 Ox Delivery Rate 05/01 799 97.5 113 26 130/76 97 Room Air 04/30 0045 116 94 / 0000 98.6 118 22 134/78 98 Room Air 04/29 1600 99.0 114 27 110/80 98 Room Air 04/29 1600 97 Room Air Intake & Output 04/30 0804/30 0000 Intake Total 816 1225 Output Total 270 300 Balance 546 925 Intake, IV 576 1225 Intake, Oral 240 Number 1 Bowel Movements Output, Urine 270 300 Exam General Appearance: well developed/nourished, no apparent distress, alert, awake , comfortable, obese Other Physical Findings: Head: atraumatic, normal appearance Neck: supple Respiratory: lungs clear Cardiovascular: regular rate/rhythm Gastrointestinal: soft, non-tender, positive bowel sounds Extremities: no edema, not moving left side (not new) Lara Site: urethral Nutrition Nutrition: P.O. diet Current Medications: Current Medications Sig/Ness Start time Last Medication Dose Route Stop Time Status Admin Acetaminophen 650 MG Q6P PRN 04/29 1900 AC PO Acetaminophen 1,000 MG Q6P PRN 04/28 1315 DC IV Ceftazidime 1,000 MG DAILY 04/29 1000 AC 04/30 IV 1028 Dexamethasone 2 MG Q8 04/29 2200 AC 04/30 PO 0612 Dexamethasone 2 MG Q8 04/28 1400 DC 04/29 Dextrose/Water 50 ML IV 1345 Dextrose/Sodium 1,000 ML Q13H 04/29 0900 AC 04/30 Chloride IV 1100 Insulin Aspart 0 TIDAC 04/30 0800 AC 04/30 SC 1200 Insulin Human Regular 0 Q6 04/28 1800 DC 04/29 SC 1205 Lacosamide 200 MG BID 04/30 1000 AC 04/30 PO 1117 Lacosamide 100 MG Q12H 04/28 1800 DC 04/29 Sodium Chloride 100 ML IV 1742 Levetiracetam 500 MG BID 04/29 2200 AC 04/30 PO 1027 Levetiracetam 500 MG BID 04/28 1344 DC 04/29 Sodium Chloride 100 ML IV 0956 Metoprolol Tartrate 12.5 MG BID 04/30 1243 AC 04/30 PO 1310 Non-Formulary 0 SEE ADMIN CRITERIA 04/29 1900 UNVr Medication ANY Omeprazole 40 MG DAILY AC 04/30 0700 AC 04/30 PO 0612 Pantoprazole Sodium 40 MG DAILY 04/28 1344 DC 04/29 IV 1001 Patient Medication 1 UNIT ONE NR 04/30 1300 DC Teaching ED 04/30 1330 Phenytoin 200 MG DAILY 04/30 1000 AC 04/30 PO 1027 Phenytoin 300 MG AT BEDTIME 04/29 2200 AC 04/29 PO 2244 Phenytoin 200 MG Q8 04/29 2200 DC PO Phenytoin 300 MG AT BEDTIME 04/28 2200 DC 04/28 Sodium Chloride 50 ML IV 2203 Phenytoin 200 MG DAILY 04/28 1346 DC 04/29 Sodium Chloride 50 ML IV 1029 Sodium Bicarbonate 100 MEQ ONCE ONE 04/29 0915 DC 04/29 Dextrose/Water 1,000 ML IV 04/29 2234 0955 Vancomycin HCl 1,000 MG ONCE ONE 04/30 0900 DC 04/30 Dextrose/Water 250 ML IV 04/30 0959 1027 Impression/Plan Impression/Problem List Impression: 60 y/o M with PMHx of glioblastoma multiforme on chemotherapy and T2DM who is admitted for presumed septic shock with multisystem organ failure of unclear source, possibly urologic. Respiratory: #Acute hypoxemic respiratory failure: Resolved. Patient was successfully weaned off BiPAP to room air. Repeat ABG after removal of BiPAP 7.42/23/108/15. * Provide supplemental oxygen as needed to keep SpO2 > 92%. Infectious Diseases: #Septic shock: Of unclear etiology, but potential etiologies include UTI given pyuria and indwelling Lara, pneumonia given altered mental status and respiratory distress on admission as well as history of seizures or an intraabdominal process. On day 3 of vancomycin and ceftazidime with drastic improvement. BCx and UCx negative so far. * Follow BCx and UCx. * Continue ceftazidime 1 g IV daily. * Continue vancomycin. Check random vancomycin level in the AM and redose accordingly in the setting of STEFAN. Cardiovascular: #Septic shock: Remains hemodynamically stable off IV Levophed which was discontinued last night. SBP today is consistently in 140s and HR is 110-130 with some PVCs, so half of home dose of Metoprolol started today. * Monitor hemodynamics closely. * Advance home meds to full dose when BP allows. * Continue maintenance fluids, as his PO intake is poor today. Considering stopping IVF when PO intake improves. Update: 1600 hrs: Patient's lactic acid level returned 3.1, an increase from 2.3 , and also his urine output has been on the lower side. His IV fluid was running at 50 mL per hour today. * A bolus of 500 mL IV normal saline has been ordered * IV fluid infusion rate has been increased to 75 mL per hour * Will recheck lactic acid levels after bolus fluid administration, might need to increase fluid rate according to the results * Metformin that was started today has been discontinued * Dr. Peña informed and agrees to the plan. Hematology: #Thrombocytopenia: Platelets were 210 on admission but have dropped to 76 today. Has not received heparin during this admission. * Oncology was consulted who feel that etiology is most likely multifactorial, caused by a combination of bone marrow suppression 2/2 sepsis, increased consumption related to DIC during sepsis and chemotherapy. Do not recommend further evaluation or intervention at this time. * Not actively bleeding. * Continue to monitor platelet count daily. Metabolic: #STEFAN: Cr has significantly improved from 5.7 on admission to 1.0 today. Most likely etiology is ischemic and likely septic ATN. * No plans for dialysis at this time per nephrology. * Continue IVF resuscitation for today. * Avoid nephrotoxic agents including IV contrast. #Hypernatremia: Na has increased to 141 this AM from 138 on admission. Most likely to the sodium containing bicarbonate drip that patient was on. * Changed maintenance fluids to D5W-1/2NS @ 50 cc/hr. Was 145 yesterday. #Lactic acidosis: Profound lactic acidosis to 12.1 has resolved and lactate has come down to 1.7. Severe metabolic acidosis is improving, bicarbonate 17 today, improved from <5 on admission. * Administered 100 mEq of sodium bicarbonate yesterday. Last LA was 2.3, repeat sent today. #Hyperkalemia: K has improved to 4.3 from 6.1 on initial presentation. Secondary to STEFAN and decreased K excretion. * Continue to monitor K. #Shock liver: LFTs were normal on admission but have trended up yesterday, likely 2/2 septic shock, now downtrending 394/585 today. * Continue to monitor LFTs. #T2DM: Takes glimepride 2 mg PO daily. * Hold oral hypoglycemic agents while inpatient. * Accu-checks and Novolog TIDAC/QHS sliding scale. * This AM FBS is 209, intake has changed today, so continue to monitor and adjust accordingly #Gout: Takes allopurinol 300 mg PO daily and colcichine 0.6 mg PO daily. * Hold prior to admission gout medications for now. Alimentary: Consistent Carbohydrate 2 Neurological: #Glioblastoma multiforme: Complicated by seizures and intracranial bleed in 2014 requiring clot evacuation. Follows with Dr. Knott in [place]. On chemotherapy with procarbazine/lomustine/vincristine. Poor performance status with left- sideed hemiparesis at baseline. * Per patient's , Oncologist told her that he does not need to be on chemotherapeutic agent Procarbazine from Apr 25 onwards, so it has been held accordingly. No clear note about GBM chemotherapy in neurology note. Other two meds- Lomustine and Vincristine are only Day 1 drugs per cycle. * Continuing prior to admission antiseizure medications phenytoin 200 mg PO daily and 300 mg PO QHS, Keppra 500 mg PO BID and Vimpat 100 mg PO Q12H now that patient is able to take pO. * Continue dexamethasone 2 mg PO Q8H. DVT/Prophylaxis: mechanical Diet: CC2 Code Status: Do Not Resucitate/Intubate Problem List: 1. Septic shock 2. Glioblastoma multiforme 3. Hypernatremia 4. Thrombocytopenia 5. ATN (acute tubular necrosis) 6. Lactic acidosis 7. Hypertension Pain Ratin Tomorrow's Labs & Rationales: ICU lab bundle and CBC, low plt, sepsis, ATN Plan DVT/Prophylaxis: mechanical Code Status: Do Not Resucitate/Intubat
--- NOTE | 2016-04-30 12:43 | Cons- Cardiology ---
General Information and HPI Consulting Request Date of Consult: 04/30/16 Requested By: VERITO LAFLEUR MD Reason for Consult: Persistent tachycardia with ventricular ectopy Source of Information: patient, old records History of Present Illness: The patient is a 60-year-old male with a history of glioblastoma who was brought to the emergency room from the extended care facility for shortness of breath, peripheral cyanosis, etc. On arrival to the emergency room he was found to have weak peripheral pulses and was unresponsive and tachycardic. His blood pressure was borderline at 100/60 at that time. He was also noted to be markedly lethargic. The patient was admitted to the ICU for further management. As far as I can tell, there is no known prior cardiac history. While in the ICU, the patient has been noted to be persistently tachycardic with sinus tachycardia and intermittent episodes of ventricular ectopy. No complex ventricular arrhythmias have been detected however. No other arrhythmias have been noted. Today, the patient is awake. He remains in sinus tachycardia at a rate of 100 to 115. Intermittent unifocal ventricular ectopy is noted. Overnight, there was one brief episode of ventricular trigeminy. Allergies/Medications Allergies: Coded Allergies: No Known Allergies (04/28/16) Home Med List: Allopurinol 300 MG TABLET 1 TAB PO DAILY gout (Reported) Reason to Stop at ADM:STEFAN Colchicine 0.6 MG TABLET 1 TAB PO DAILY GOUT (Reported) Reason to Stop at ADM:STEFAN Dexamethasone 2 MG TABLET 2 MG PO Q8 PRN BRAIN TUMOR (Reported) Reason to Stop at ADM:CHANGED TO IV Dronabinol (Marinol) 2.5 MG CAPSULE 1 CAP PO BID N/V (Reported) Reason to Stop at ADM: ON ZOFRAN Folic Acid 1 MG TABLET 1 TAB PO DAILY SUPPLEMENT (Reported) Gabapentin (Neurontin) 300 MG CAPSULE 1 CAP PO TID NEUROGENIC PAIN (Reported) Glimepiride (Amaryl) 2 MG TABLET 2 MG PO DAILY DIABETES (Reported) Reason to Stop at ADM:ISS Lacosamide (Vimpat) 200 MG TABLET 1 TAB PO BID SEIZURES (Reported) Reason to Stop at ADM:PO TO IV Levetiracetam (Keppra) 500 MG TABLET 1 TAB PO BID SEIZURE (Reported) Reason to Stop at ADM:PO TO IV Metoprolol Tartrate (Lopressor) 50 MG TABLET 25 MG PO BID BP (Reported) Reason to Stop at ADM:SHOCK Nut.tx.glucose Intolerance,Soy (Glucerna) 1 EACH BAR 1 BAR PO BID SUPPLEMENT (Reported) Pantoprazole Sodium (Protonix) 40 MG TABLET.DR 1 TAB PO DAILY GI (Reported) Phenytoin (Dilantin) 100 MG CAPSULE 2 CAP PO TID SEIZURE (Reported) Phenytoin (Dilantin) 100 MG CAPSULE 300 MG PO BEDTIME SEIZURES (Reported) Procarbazine Hydrochloride (Matulane) 50 MG CAPSULE 100 MG PO BEDTIME CANCER (Reported) Thiamine HCl 100 MG TABLET 1 TAB PO DAILY SUPPLEMENT (Reported) Current Medications: Current Medications Sig/Ness Start time Last Medication Dose Route Stop Time Status Admin Acetaminophen 650 MG Q6P PRN 04/29 1900 AC PO Acetaminophen 1,000 MG Q6P PRN 04/28 1315 DC IV Ceftazidime 1,000 MG DAILY 04/29 1000 AC 04/30 IV 1028 Dexamethasone 2 MG Q8 04/29 2200 AC 04/30 PO 0612 Dexamethasone 2 MG Q8 04/28 1400 DC 04/29 Dextrose/Water 50 ML IV 1345 Dextrose/Sodium 1,000 ML Q13H 04/29 0900 AC 04/30 Chloride IV 1100 Insulin Aspart 0 TIDAC 04/30 0800 AC 04/30 SC 1200 Insulin Human Regular 0 Q6 04/28 1800 DC 04/29 SC 1205 Lacosamide 200 MG BID 04/30 1000 AC 04/30 PO 1117 Lacosamide 100 MG Q12H 04/28 1800 DC 04/29 Sodium Chloride 100 ML IV 1742 Levetiracetam 500 MG BID 04/29 2200 AC 04/30 PO 1027 Levetiracetam 500 MG BID 04/28 1344 DC 04/29 Sodium Chloride 100 ML IV 0956 Non-Formulary 0 SEE ADMIN CRITERIA 04/29 1900 UNVr Medication ANY Omeprazole 40 MG DAILY AC 04/30 0700 AC 04/30 PO 0612 Pantoprazole Sodium 40 MG DAILY 04/28 1344 DC 04/29 IV 1001 Phenytoin 200 MG DAILY 04/30 1000 AC 04/30 PO 1027 Phenytoin 300 MG AT BEDTIME 04/29 2200 AC 04/29 PO 2244 Phenytoin 200 MG Q8 04/29 2200 DC PO Phenytoin 300 MG AT BEDTIME 04/28 2200 DC 03/03 Sodium Chloride 50 ML IV 2203 Phenytoin 200 MG DAILY 04/28 1346 DC 04/29 Sodium Chloride 50 ML IV 1029 Sodium Bicarbonate 100 MEQ ONCE ONE 04/29 0815 DC 04/29 Dextrose/Water 1,000 ML IV 04/29 2234 0955 Vancomycin HCl 1,000 MG ONCE ONE 04/30 0900 DC 04/30 Dextrose/Water 250 ML IV 04/30 0959 1027 Past History Travel History Traveled to [place] past 21 day No Medical History Blood Transfusion Hx: Yes Type of Reaction: none Neurological: seizure, glioblastoma multiforme EENT: NONE Cardiovascular: hypertension Respiratory: NONE Gastrointestinal: BLEEDING ULCER 2004 Hepatic: NONE Renal: NONE Musculoskeletal: gout Psychiatric: NONE Endocrine: diabetes Blood Disorders: NONE 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 Acute [facility] Who Do You Live With? spouse Services at Home: [facility] Primary Language: Maori Smoking Status: Former Smoker ETOH Use: occasional use Illicit Drug Use: denies illicit drug use Living Will? yes Power of Color Blender/HCP? yes Name of POA/HCP: Functional Ability ADLs Needs Assist: dressing, eating, toileting, bathing. Ambulation: non-ambulatory IADLs Needs Assist: shopping, housework, finances, food prep, telephone, transportation, medication admin. Employment History Employment: Unemployed Exam & Diagnostic Data Vital Signs and I&O Vital Signs Date Time Temp Pulse Resp B/P Pulse O2 O2 Flow FiO2 Ox Delivery Rate 05/01 799 97.5 113 26 130/76 97 Room Air 04/30 0045 116 94 04/30 0000 98.6 118 22 134/78 98 Room Air 04/29 1600 99.0 114 27 110/80 98 Room Air 04/29 1600 97 Room Air Intake & Output 04/30 1600 04/30 0000 04/29 1600 04/29 0000 Intake Total 816 1225 1603 1623 2757 Output Total 270 300 400 400 350 Balance 740 093 0012 1223 2407 Intake, IV 576 1225 1603 1623 2757 Intake, Oral 240 Number 1 2 2 Bowel Movements Output, Urine 270 300 400 400 350 Patient 191 lb Weight Physical Exam: General Appearance: alert, awake, answers simple questions appropriately, follows commands Head: atraumatic, normal appearance Neck: supple, JVP normal, carotids 2+ bilaterally. No bruits heard Respiratory: Scattered bilateral rhonchi Cardiovascular: regular rate/rhythm, no audible murmurs Gastrointestinal: soft, non-tender, positive bowel sounds Extremities: no significant edema Labs/Noel Results: Laboratory Tests 04/30 04/29 0415 1836 Chemistry Sodium (137 - 145 mmol/L) 141 Cancelled Potassium (3.5 - 5.1 mmol/L) 4.3 Chloride (98 - 107 mmol/L) 112 H Carbon Dioxide (22 - 30 mmol/L) 17 L Anion Gap (5 - 16) 11 BUN (9 - 20 mg/dL) 48 H Creatinine (0.7 - 1.2 mg/dL) 1.0 Estimated GFR (>60 ml/min) > 60 Glucose (65 - 99 mg/dL) 196 H Calcium (8.4 - 10.2 mg/dL) 8.3 L Phosphorus (2.5 - 4.5 mg/dL) 3.6 Magnesium (1.6 - 2.3 mg/dL) 1.9 Total Bilirubin (0.2 - 1.3 mg/dL) 0.4 AST (17 - 59 U/L) 394 H ALT (21 - 72 U/L) 585 H Albumin (3.5 - 5.0 g/dL) 3.2 L Coagulation PT (9.4 - 12.5 SEC) 19.1 H INR (0.90 - 1.17) 1.83 H Hematology CBC w Diff NO MAN DIFF REQ WBC (4.8 - 10.8 /CUMM) 14.7 H RBC (4.70 - 6.10 /CUMM) 2.88 L Hgb (14.0 - 18.0 G/DL) 8.4 L Hct (42 - 52 %) 25.1 L MCV (80.0 - 94.0 FL) 87.2 MCH (27.0 - 31.0 PG) 29.2 RDW (11.5 - 14.5 %) 19.8 H Plt Count (130 - 400 /CUMM) 76 L MPV (7.4 - 10.4 FL) 8.6 Gran % (42.2 - 75.2 %) 93.9 H Lymphocytes % (20.5 - 51.1 %) 4.8 L Monocytes % (1.7 - 9.3 %) 1.3 L Eosinophils % (0 - 5 %) 0 Basophils % (0.0 - 2.0 %) 0 L Absolute Granulocytes (1.4 - 6.5 /CUMM) 13.8 H Absolute Lymphocytes (1.2 - 3.4 /CUMM) 0.7 L Absolute Monocytes (0.10 - 0.60 /CUMM) 0.2 Absolute Eosinophils (0.0 - 0.7 /CUMM) 0 Absolute Basophils (0.0 - 0.2 /CUMM) 0 PUBS MCHC (33.0 - 37.0 G/DL) 33.5 Toxicology Random Vancomycin (ug/ml) 10.5 04/29 04/29 1155 0610 Blood Gas pH (7.35 - 7.45 PH) 7.42 7.41 pCO2 (35 - 45 TORR) 23 L 20 L pO2 (80 - 100 TORR) 108 H 119 H HCO3 (21 - 28 MEQ/L) 15 L 12 L ABG O2 Sat (Measured) (>96.0 %) 97.0 98.0 P-50 (Temp Corrected) N Carboxyhemoglobin (1.5 - 5.0 %) 0.3 L 0.3 L O2 Concentration % 2LPM .25 Respiration Rate (BPM) 20 O2 Delivery Method NC BIPAP Vent Mode ST Expiratory Pressure (CM H2O P) 6 Inspiratory Pressure (CM H2O P) 18 Miscellaneous Phlebotomy Draw Site LEFT RADIAL RIGHT RADIAL 04/29 04/28 0345 1955 Chemistry Sodium (137 - 145 mmol/L) 145 Potassium (3.5 - 5.1 mmol/L) 4.5 Chloride (98 - 107 mmol/L) 114 H Carbon Dioxide (22 - 30 mmol/L) 15 L Anion Gap (5 - 16) 16 BUN (9 - 20 mg/dL) 50 H Creatinine (0.7 - 1.2 mg/dL) 1.9 H Estimated GFR (>60 ml/min) 37 L Glucose (65 - 99 mg/dL) 183 H Lactic Acid (0.7 - 2.1 mmol/L) 2.3 H 1.7 Calcium (8.4 - 10.2 mg/dL) 7.6 L Phosphorus (2.5 - 4.5 mg/dL) 4.3 Magnesium (1.6 - 2.3 mg/dL) 1.7 Total Bilirubin (0.2 - 1.3 mg/dL) 0.4 AST (17 - 59 U/L) 683 H ALT (21 - 72 U/L) 448 H Albumin (3.5 - 5.0 g/dL) 3.3 L Coagulation PT (9.4 - 12.5 SEC) 16.0 H INR (0.90 - 1.17) 1.53 H Hematology CBC w Diff NO MAN DIFF REQ WBC (4.8 - 10.8 /CUMM) 14.8 H RBC (4.70 - 6.10 /CUMM) 3.10 L Hgb (14.0 - 18.0 G/DL) 9.1 L Hct (42 - 52 %) 26.8 L MCV (80.0 - 94.0 FL) 86.5 MCH (27.0 - 31.0 PG) 29.5 RDW (11.5 - 14.5 %) 19.2 H Plt Count (130 - 400 /CUMM) 87 L MPV (7.4 - 10.4 FL) 9.0 Gran % (42.2 - 75.2 %) 92.7 H Lymphocytes % (20.5 - 51.1 %) 5.1 L Monocytes % (1.7 - 9.3 %) 2.1 Eosinophils % (0 - 5 %) 0.1 Basophils % (0.0 - 2.0 %) 0 L Absolute Granulocytes (1.4 - 6.5 /CUMM) 13.7 H Absolute Lymphocytes (1.2 - 3.4 /CUMM) 0.7 L Absolute Monocytes (0.10 - 0.60 /CUMM) 0.3 Absolute Eosinophils (0.0 - 0.7 /CUMM) 0 Absolute Basophils (0.0 - 0.2 /CUMM) 0 PUBS MCHC (33.0 - 37.0 G/DL) 34.1 Toxicology Random Vancomycin (ug/ml) 8.8 03/03 03 1700 1650 Chemistry Sodium (137 - 145 mmol/L) 140 Potassium (3.5 - 5.1 mmol/L) 4.9 Chloride (98 - 107 mmol/L) 111 H Carbon Dioxide (22 - 30 mmol/L) 15 L Anion Gap (5 - 16) 14 BUN (9 - 20 mg/dL) 54 H Creatinine (0.7 - 1.2 mg/dL) 3.4 H Estimated GFR (>60 ml/min) 19 L Glucose (65 - 99 mg/dL) 301 H Lactic Acid (0.7 - 2.1 mmol/L) 3.4 H Cancelled Calcium (8.4 - 10.2 mg/dL) 7.2 L Phosphorus (2.5 - 4.5 mg/dL) 6.3 H Magnesium (1.6 - 2.3 mg/dL) 1.7 Total Bilirubin (0.2 - 1.3 mg/dL) 0.5 AST (17 - 59 U/L) 340 H ALT (21 - 72 U/L) 190 H Albumin (3.5 - 5.0 g/dL) 3.0 L Coagulation PT (9.4 - 12.5 SEC) 16.2 H INR (0.90 - 1.17) 1.55 H Hematology CBC w Diff MAN DIFF ORDERED WBC (4.8 - 10.8 /CUMM) 23.8 H RBC (4.70 - 6.10 /CUMM) 3.11 L Hgb (14.0 - 18.0 G/DL) 9.4 L Hct (42 - 52 %) 27.3 L MCV (80.0 - 94.0 FL) 87.8 MCH (27.0 - 31.0 PG) 30.1 RDW (11.5 - 14.5 %) 19.4 H Plt Count (130 - 400 /CUMM) 127 L MPV (7.4 - 10.4 FL) 8.1 Gran % (42.2 - 75.2 %) 94.9 H Lymphocytes % (20.5 - 51.1 %) 3.8 L Monocytes % (1.7 - 9.3 %) 1.3 L Eosinophils % (0 - 5 %) 0 Basophils % (0.0 - 2.0 %) 0 L Absolute Granulocytes (1.4 - 6.5 /CUMM) 22.6 H Segmented Neutrophils (42.2 - 75.2 %) 84 H Band Neutrophils (0.0 - 5.0 %) 12 H Absolute Lymphocytes (1.2 - 3.4 /CUMM) 0.9 L Lymphocytes (20.5 - 51.1 %) 3 L Absolute Monocytes (0.10 - 0.60 /CUMM) 0.3 Absolute Eosinophils (0.0 - 0.7 /CUMM) 0 Absolute Basophils (0.0 - 0.2 /CUMM) 0 Metamyelocytes (0.0 - 1.0 %) 1 Platelet Estimate (ADEQUATE) DECREASED Polychromasia 1+ Anisocytosis 2+ Microcytic Cells 1+ PUBS MCHC (33.0 - 37.0 G/DL) 34.3 04/28 04/28 04/28 04/28 1620 1318 1253 1253 Blood Gas pH (7.35 - 7.45 PH) 7.31 L pCO2 (35 - 45 TORR) 22 L pO2 (80 - 100 TORR) 114 H HCO3 (21 - 28 MEQ/L) 11 L ABG O2 Sat (Measured) (>96.0 %) 97.0 P-50 (Temp Corrected) N Carboxyhemoglobin (1.5 - 5.0 %) 0.1 L O2 Concentration % 30% Temperature (97.0 - 100.0 FARH) 97.0 Respiration Rate (BPM) 20 O2 Delivery Method BIPAP Vent Mode ST Expiratory Pressure (CM H2O P) 6 Inspiratory Pressure (CM H2O P) 18 Chemistry Sodium (137 - 145 mmol/L) 142 Potassium (3.5 - 5.1 mmol/L) 5.0 Chloride (98 - 107 mmol/L) 114 H Carbon Dioxide (22 - 30 mmol/L) 8 *L Anion Gap (5 - 16) 20 H BUN (9 - 20 mg/dL) 55 H Creatinine (0.7 - 1.2 mg/dL) 4.4 H Estimated GFR (>60 ml/min) 14 L BUN/Creatinine Ratio (7 - 25 %) 12.5 Glucose (65 - 99 mg/dL) 247 H Lactic Acid (0.7 - 2.1 mmol/L) 8.5 H Calcium (8.4 - 10.2 mg/dL) 7.0 L Coagulation Fibrin Degrad Products (< 10 ug/ml) > 40 ug/ml H Miscellaneous Phlebotomy Draw Site RIGHT RADIAL Diagnostic Data EKG Results Sinus tachycardia with nonspecific ST-T changes and unifocal ventricular ectopy CXR Results IMPRESSION: No evidence of pulmonary edema. No significant change in some left retrocardiac density consistent with minor atelectasis. Some prominence of the right hilum which may be related to lymph node or vascularity. There is some prominence of the paratracheal soft tissues which may be related to lipomatous tissue or possible lymph nodes. Other Results Chest CT: 1. Examination is degraded by patient motion. 2. There is no abnormal fluid collection or abscess formation identified 3. Mildly enlarged mediastinal lymph nodes. Monitoring is recommended. 4. Mild prominence of the submucosal fat noted in the decompressed large bowel. This represents a nonspecific finding. It can also be associated with inflammatory bowel disease. No evidence of active disease. 5. Lara catheter in place. Mild anterior bladder wall thickness may be accentuated decompressed urinary bladder. Mild cystitis cannot be excluded. 5. Minor stranding adjacent to the right femoral veins represents a nonspecific finding. Clinical correlation recommended. Assessment/Plan Assessment/Plan Assessment: 1. Persistent sinus tachycardia with unifocal ventricular ectopy-I the patient has had sinus tachycardia since arrival in the ICU. In addition, ventricular ectopy has been present on and off since arrival in the ICU. There have been no complex arrhythmias detected however. There has been no evidence of ventricular tachycardia. I suspect the rate is related to the patient's multiple ongoing issues including sepsis, anemia, etc. The ventricular ectopy may also be related to these factors. Further evaluation including echocardiogram is pending. 2. Acute hypoxemic respiratory failure 3. Sepsis with lactic acidosis 4. Type 2 diabetes 5. Glioblastoma multiforme 6. Acute renal insufficiency-improved; creatinine 1.0 today 7. Hypernatremia-improved 8. Anemia 9. Thrombocytopenia-decreased to 76,000 today 10. Shock liver/transaminitis Recommendations: -The patient should be maintained on telemetry for now. If otherwise stable, the patient can transferred to [address] [place] [address] for further monitoring. -Continue to correct all metabolic parameters, etc. -Await the results of echocardiogram before any further decisions. -Continue all other supportive care as otherwise outlined. Consult Acknowledgment - Thank you for your consult request.
[2016-04-30 16:00] VITALS: BP 152/90
--- NOTE | 2016-04-30 19:38 | ECHOCARDIOGRAM REPORT ---
ARIADNE BERNSTEIN Age: 60 : 1955 Gender: M Exam Date: 04/30/2016 09:32 Exam Location: [facility] Ht (in): 67 Wt (lb): 190 BSA: 2.04 BP: 134 / 78 Ordering Physician: RICK DAVILA MD Referring Physician: Jody Leon MD Technologist: Ninoska Coon [facility] Room Number: 103 Indications: HYPOTENSION Rhythm: Sinus Technical Quality: Fair, Technically difficult study FINDINGS Left Ventricle Normal size left ventricle. No obvious regional wall motion abnormalities. Normal left ventricular ejection fraction estimated at 60-65%. Right Ventricle Right ventricle not well visualized, grossly normal. Right Atrium Normal right atrial size. Left Atrium Left atrial size at the upper limits of normal. Mitral Valve Mitral valve thickened. Trace to mild mitral regurgitation. Aortic Valve Trileaflet aortic valve. Focal thickening of the aortic valve cusps. No aortic stenosis. No aortic regurgitation. Tricuspid Valve Tricuspid valve not well visualized, grossly normal. Pulmonic Valve Pulmonic valve not well visualized. Pericardium Small pericardial effusion. Great Vessels Aortic root and proximal ascending aorta not well visualized, grossly normal. CONCLUSIONS 1. This was a technically difficult and limited examination due to the patient's body habitus. 2. Minimal aortic sclerosis is present. 3. Mild thickening of the mitral leaflets is present with minimal to mild mitral insufficiency. 4. A very small pericardial effusion is present. 5. The left ventricular chamber size and systolic function appear normal. 6. The right heart structures were not optimally visualized. The RV systolic pressure could not be assessed on this examination. Jody Leon M.D. (Electronically Signed) Final Date: 30 April 2016 19:37 MEASUREMENTS (Male / Female) Normal Values 2D ECHO LV Diastolic Diameter PLAX 4.7 cm 4.2 - 5.9 / 3.9 - 5.3 cm LV Systolic Diameter PLAX 3.0 cm 2.1 - 4.0 cm LV Fractional Shortening PLAX 36.2 % 25 - 46 % LV Ejection Fraction 2D Teich 65.8 % IVS Diastolic Thickness 1.2 cm LVPW Diastolic Thickness 1.1 cm LV Relative Wall Thickness 0.5 RV Internal Dim ED PLAX 2.2 cm 1.9 - 3.8 cm LVOT Diameter 2.0 cm Aortic Root Diameter 3.0 cm LA Systolic Diameter LX 2.8 cm 3.0 - 4.0 / 2.7 - 3.8 cm LA Volume 26.0 cm 18 - 58 / 22 - 52 cm Ascending Aorta Diameter 3.2 cm DOPPLER AV Peak Velocity 105.0 cm/s AV Peak Gradient 4.4 mmHg AV Mean Velocity 79.3 cm/s AV Mean Gradient 3.0 mmHg AV Velocity Time Integral 15.1 cm LVOT Peak Velocity 86.4 cm/s LVOT Peak Gradient 3.0 mmHg LVOT Mean Velocity 60.7 cm/s LVOT Mean Gradient 2.0 mmHg LVOT Velocity Time Integral 15.1 cm LVOT Stroke Volume 47.4 cm AV Area Cont Eq vti 3.1 cm AV Area Cont Eq pk 2.6 cm MV Peak Velocity 62.0 cm/s MV Peak Gradient 1.5 mmHg MV Mean Velocity 41.9 cm/s MV Mean Gradient 1.0 mmHg Mitral E Point Velocity 45.1 cm/s Mitral A Point Velocity 64.0 cm/s Mitral E to A Ratio 0.7 MV PHT Velocity 52.3 cm/s MV Deceleration [place] 183.0 cm/s MV Pressure Half Time 85.7 ms MV Area PHT 2.6 cm MV Deceleration Time 251.0 ms PV Peak Velocity 152.0 cm/s PV Peak Gradient 9.2 mmHg PV Mean Velocity 84.9 cm/s PV Mean Gradient 4.0 mmHg PV Velocity Time Integral 19.3 cm LV E' Lateral Velocity 11.1 cm/s Mitral E to LV E' Lateral Ratio 4.1 LV E' Septal Velocity 6.8 cm/s Mitral E to LV E' Septal Ratio 6.6
[2016-05-01] VITALS: BP 146/90
[2016-05-01 05:30] LABS: ABSOLUTE BASOPHIL COUNT 0 /CUMM (0.0-0.2); ABSOLUTE EOSINOPHIL COUNT 0 /CUMM (0.0-0.7); ABSOLUTE GRANULOCYTE CT 12.8 /CUMM (1.4-6.5); ABSOLUTE LYMPH COUNT 1.2 /CUMM (1.2-3.4); ABSOLUTE MONOCYTE COUNT 0.3 /CUMM (0.10-0.60); BASOPHIL % 0.2 % (0.0-2.0); EOSINOPHIL % 0.1 % (0-5); GRANULOCYTE % 89.5 % (42.2-75.2); MEAN CORPUSCULAR HGB 29.3 PG (27.0-31.0); MEAN CORPUSCULAR HGB CONC 33.5 G/DL (33.0-37.0); MEAN CORPUSCULAR VOLUME 87.4 FL (80.0-94.0); MEAN PLATELET VOLUME 8.3 FL (7.4-10.4); PLATELET COUNT 82 /CUMM (130-400); RED BLOOD CELL CT 2.98 /CUMM (4.70-6.10); WHITE BLOOD CELL COUNT 14.4 /CUMM (4.8-10.8)
--- NOTE | 2016-05-01 07:14 | PN- Resident CRCU ---
Impression/Plan Impression/Problem List Impression: 60 y/o M with PMHx of glioblastoma multiforme on chemotherapy and T2DM who is admitted for presumed septic shock with multisystem organ failure of unclear source. Plan DVT/Prophylaxis: mechanical Code Status: Do Not Resucitate/Intubat
--- NOTE | 2016-05-01 07:29 | PN- Housestaff ---
Subjective Follow-up For: Septic shock Thrombocytopenia Shock liver Persistent sinus tachycardia with ventricular ectopy Glioblastoma multiforme Subjective: No acute events overnight. Patient seen and examined this morning. He says that he does not feel well but is unable to specify why. He denies chest pain, shortness of breath, nausea, vomiting or diarrhea. He remains on room air with SpO2 > 95%. Review of Systems Constitutional: Reports: malaise. Denies: chills, fever. Cardiovascular: Denies: chest pain, palpitations. Respiratory: Denies: short of breath. Gastrointestinal: Denies: abdominal pain, diarrhea, nausea, vomiting. Objective Last 24 Hrs of Vital Signs/I&O Vital Signs Date Time Temp Pulse Resp B/P Pulse O2 O2 Flow FiO2 Ox Delivery Rate 05/01 0000 98 Room Air Room Air 05/01 0000 97.1 109 24 146/90 98 Room Air Room Air 04/30 1600 97.9 99 22 152/90 98 Room Air Intake & Output 05/01 1600 / 0800 05/01 0000 Intake Total 601 840 Output Total 300 220 Balance 301 620 Intake, IV 541 600 Intake, Oral 60 240 Number 0 0 Bowel Movements Output, Urine 300 220 Physical Exam General Appearance: Alert, Oriented X3, No Acute Distress Skin: Warm and Dry HEENT: Mucous Membr. moist/pink Neck: Supple Cardiovascular: Regular Rate Abdomen: Soft, No Tenderness, Positive Bowel Sounds Extremities: No Edema Assessment/Plan Assessment: 60 y/o M with PMHx of 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 #Septic shock: Of unclear source, but potential etiologies include UTI given pyuria and indwelling Lara, pneumonia given altered mental status and respiratory distress on admission as well as history of seizures or an intraabdominal process. S/p 3 doses of vancomycin and ceftazidime so far with drastic improvement. BCx and UCx negative. CT Chest/Abdomen/Pelvis with no obvious source. * Follow BCx and UCx. * Discontinue vancomycin and ceftazidime. * Start ceftriaxone 1 g IV for 3 more days. #Persistent sinus tachycardia with ventricular ectopy: Likely multifactorial secondary to acute issues including sepsis and anemia. ECHO with normal LVEF. * Cardiology following. Appreciate their recs. * Continue telemetry monitoring. * No further cardiac workup indicated at this time per cardiology. #Glioblastoma multiforme: Complicated by seizures and intracranial bleed in 2015 requiring clot evacuation. Follows with Dr. Knott in [place]. S/p 1 cycle of procarbazine/lomustine/vincristine. Poor performance status with left-sideed hemiparesis at baseline. * Continue prior to admission antiseizure medications phenytoin 200 mg PO daily and 300 mg PO QHS, Keppra 500 mg PO BID and Vimpat 100 mg PO Q12H. * Continue dexamethasone 2 mg PO Q8H. #Thrombocytopenia: Platelets remain in the 70-80s. Most likely multifactorial, etiology, caused by a combination of bone marrow suppression 2/2 sepsis, increased consumption related to DIC during sepsis and chemotherapy. * Oncology following. Appreciate their recs. * Continue to monitor platelet count daily. #STEFAN: Resolved. Cr has improved back to baseline, 0.9 today. Most likely etiology is ischemic and likely septic ATN. * Avoid nephrotoxic agents including IV contrast. #T2DM: Blood sugars well-controlled. * Hold oral hypoglycemic agents while inpatient. * Accu-checks and Novolog TIDAC/QHS sliding scale. #Shock liver: LFTs have improved further, AST/ALT 151/535. Most likely 2/2 septic shock. * Continue to monitor LFTs. Diet: Consistent Carbohydrate 2 DVT PPx: ALPs CODE: DNR/DNI Problem List: 1. Septic shock 2. Multisystem organ failure 3. Shock liver 4. T2DM (type 2 diabetes mellitus) 5. Glioblastoma multiforme 6. Sinus tachycardia 7. Ventricular ectopy Pain Ratin Pain Location: N/A Pain Goal: Remain pain free Pain Plan: Tylenol 650 mg PO Q6H Tomorrow's Labs & Rationales: CBC to monitor WBC in the setting of infection BMP to monitor kidney function and lytes in the setting of STEFAN LFTs to monitor resolution of shock liver Tylenol 650 mg PO Q6H Tomorrow's Labs & Rationales: CBC to monitor WBC in the setting of infection BMP to monitor kidney function and lytes in the setting of STEFAN
[2016-05-01 08:00] VITALS: BP 156/80
--- NOTE | 2016-05-01 09:01 | PN- Oncology ---
Subjective Subjective: He feels well. He denies new symptoms. Review of Systems: Constitutional: Denies: chills, fever. Cardiovascular: Denies: chest pain. Respiratory: Denies: cough, hemoptysis, short of breath. GI: Denies: abdominal pain. Neurological/Psychological: Reports: cognitive dysfunction. Denies: anxiety. Hematologic/Endocrine: Denies: bruising, bleeding. All Other Systems: Reviewed and Negative Objective Vital Signs and I&Os Vital Signs Date Time Temp Pulse Resp B/P Pulse O2 O2 Flow FiO2 Ox Delivery Rate 05/02 799 97.7 105 24 156/80 99 Room Air 05/01 0000 98 Room Air Room Air 05/01 0000 97.1 109 24 146/90 98 Room Air Room Air 04/30 1600 97.9 99 22 152/90 98 Room Air Intake & Output 05/01 1600 05/01 0800 05/01 0000 04/30 1600 04/30 0804/30 0000 Intake Total 187 194 3750 816 1225 Output Total 300 220 200 270 300 Balance 864 081 8059 546 925 Intake, IV 541 600 696 273 1068 Intake, Oral 60 240 600 240 Number 0 0 0 1 Bowel Movements Output, Urine 300 220 200 270 300 Physical Exam General Appearance: awake, comfortable Ears, Nose, Throat: normal pharynx Respiratory: normal breath sounds, chest non-tender Cardiovascular: regular rate/rhythm Abdomen: normal bowel sounds, no organomegaly Extremities: normal inspection Skin: intact Current Medications: Current Medications Sig/Ness Start time Last Medication Dose Route Stop Time Status Admin Acetaminophen 650 MG Q6P PRN 04/29 1900 AC PO Ceftazidime 1,000 MG DAILY 04/29 1000 AC 04/30 IV 1028 Dexamethasone 2 MG Q8 04/29 2200 AC 05/01 PO 0625 Dextrose/Sodium 1,000 ML Q13H 04/29 0900 AC 05/01 Chloride IV 0300 Insulin Aspart 0 TIDAC 04/30 0800 AC 04/30 SC 1800 Lacosamide 200 MG BID 04/30 1000 AC 04/30 PO 2219 Levetiracetam 500 MG BID 04/29 220 AC 04/30 PO 2219 Metoprolol Tartrate 12.5 MG BID 04/30 1243 DC 04/30 PO 1310 Non-Formulary 0 SEE ADMIN CRITERIA 04/29 190 CAN Medication ANY Omeprazole 40 MG DAILY AC 04/30 0700 AC 05/01 PO 0625 Patient Medication 1 UNIT ONE NR 04/30 1300 DC Teaching ED 04/30 1330 Phenytoin 200 MG DAILY 04/30 1000 AC 04/30 PO 1027 Phenytoin 300 MG AT BEDTIME 04/29 2200 AC 04/30 PO 2219 Sodium Chloride 1,000 ML Q13H 04/30 1630 CAN IV Sodium Chloride 500 ML BOLUS ONE 04/30 1630 DC 04/30 IV 04/30 1729 1800 Vancomycin HCl 1,000 MG DAILY 05/01 1000 UNir Dextrose/Water 250 ML IV Vancomycin HCl 1,000 MG ONCE ONE 04/30 0900 DC 04/30 Dextrose/Water 250 ML IV 04/30 0959 1027 Results Last 24 Hours of Lab Results: Laboratory Tests 05/01 04/30 04/30 0459 1800 1300 Chemistry Sodium (137 - 145 mmol/L) 140 Potassium (3.5 - 5.1 mmol/L) 4.6 Chloride (98 - 107 mmol/L) 110 H Carbon Dioxide (22 - 30 mmol/L) 19 L Anion Gap (5 - 16) 11 BUN (9 - 20 mg/dL) 44 H Creatinine (0.7 - 1.2 mg/dL) 0.9 Estimated GFR (>60 ml/min) > 60 BUN/Creatinine Ratio (7 - 25 %) 48.9 H Lactic Acid (0.7 - 2.1 mmol/L) 1.0 3.1 H Hematology CBC w Diff NO MAN DIFF REQ WBC (4.8 - 10.8 /CUMM) 14.4 H RBC (4.70 - 6.10 /CUMM) 2.98 L Hgb (14.0 - 18.0 G/DL) 8.7 L Hct (42 - 52 %) 26.0 L MCV (80.0 - 94.0 FL) 87.4 MCH (27.0 - 31.0 PG) 29.3 RDW (11.5 - 14.5 %) 20.0 H Plt Count (130 - 400 /CUMM) 82 L MPV (7.4 - 10.4 FL) 8.3 Gran % (42.2 - 75.2 %) 89.5 H Lymphocytes % (20.5 - 51.1 %) 8.2 L Monocytes % (1.7 - 9.3 %) 2.0 Eosinophils % (0 - 5 %) 0.1 Basophils % (0.0 - 2.0 %) 0.2 Absolute Granulocytes (1.4 - 6.5 /CUMM) 12.8 H Absolute Lymphocytes (1.2 - 3.4 /CUMM) 1.2 Absolute Monocytes (0.10 - 0.60 /CUMM) 0.3 Absolute Eosinophils (0.0 - 0.7 /CUMM) 0 Absolute Basophils (0.0 - 0.2 /CUMM) 0 PUBS MCHC (33.0 - 37.0 G/DL) 33.5 Toxicology Random Vancomycin (ug/ml) 11.5 Assessment/Plan Assessment/Recommendations: Mr. Carrera is a 60 y/o man with h/o progressive glioma, now likely transformed to GBM, status post cycle 1 Procarbazine/Lomustine/Vincristine chemotherapy, admit for [facility] with severe sepsis syndrome. He is improving from his sepsis. He is off pressor. His renal function has improved. Platelet count is improving. Overall, his condition has been declining due to progression of his underlying malignancy. Recommendation: 1. Continue trending platelet count 2. Transfusion as needed 3. Follow up as outpatient for further discussion of therpay Please call [phone] with any urgent need or his primary oncologist at [phone] for any patient specific issue. Problem List: 1. Glioblastoma multiforme 2. Thrombocytopenia 3. Hypotension 4. Septic shock
--- NOTE | 2016-05-01 10:25 | PN- CRCU ---
Subjective HPI/Critical Care Issues: pt seen and examined remained in icu overnight for monitoring afebrile 99% on ra mildly hypertensive Objective Current Medications: Current Medications Sig/Ness Start time Last Medication Dose Route Stop Time Status Admin Acetaminophen 650 MG Q6P PRN 04/29 1900 AC PO Ceftazidime 1,000 MG Q8H 05/01 1000 AC IV Ceftazidime 1,000 MG DAILY 04/29 1000 DC 04/30 IV 1028 Dexamethasone 2 MG Q8 04/29 2200 AC 05/01 PO 0625 Dextrose/Sodium 1,000 ML Q13H 04/29 0900 AC 05/01 Chloride IV 0300 Insulin Aspart 0 TIDAC 04/30 0800 AC 04/30 SC 1800 Lacosamide 200 MG BID 04/30 1000 AC 04/30 PO 2219 Levetiracetam 500 MG BID 04/29 2200 AC 04/30 PO 2219 Metoprolol Tartrate 12.5 MG BID 04/30 1243 DC 04/30 PO 1310 Non-Formulary 0 SEE ADMIN CRITERIA 04/29 1900 CAN Medication ANY Omeprazole 40 MG DAILY AC 04/30 0700 AC 05/01 PO 0625 Patient Medication 1 UNIT ONE NR 04/30 1300 DC Teaching ED 04/30 1330 Phenytoin 200 MG DAILY 04/30 1000 AC 04/30 PO 1027 Phenytoin 300 MG AT BEDTIME 04/29 2200 AC 04/30 PO 2219 Sodium Chloride 1,000 ML Q13H 04/30 1630 CAN IV Sodium Chloride 500 ML BOLUS ONE 04/30 1630 DC 03/ IV 04/30 1729 1800 Vancomycin HCl 1,000 MG DAILY 05/01 1000 CAN Dextrose/Water 250 ML IV Vital Signs & I&O Last 24 Hrs of Vitals and I&O: Vital Signs Date Time Temp Pulse Resp B/P Pulse O2 O2 Flow FiO2 Ox Delivery Rate 05/01 0800 99 Room Air / 0800 97.7 105 24 156/80 99 Room Air 03/06 0000 98 Room Air Room Air 03/ 0000 97.1 109 24 146/90 98 Room Air Room Air / 1600 97.9 99 22 152/90 98 Room Air Intake & Output / 1600 03/06 0800 03/06 0000 Intake Total 601 840 Output Total 300 220 Balance 301 620 Intake, IV 541 600 Intake, Oral 60 240 Number 0 0 Bowel Movements Output, Urine 300 220 Exam Other Physical Findings: gen awake and comfortable heent no acute findings cvs s1, s2 lungs ctab abd soft bs+ ext without edema neuro chronic left sided weakness Results Last 24 Hrs of Lab Results: Laboratory Tests 05/01/16 0459: Anion Gap 11, Estimated GFR > 60, BUN/Creatinine Ratio 48.9 H, CBC w Diff NO MAN DIFF REQ, RBC 2.98 L, MCV 87.4, MCH 29.3, RDW 20.0 H, MPV 8.3, Gran % 89.5 H, Lymphocytes % 8.2 L, Monocytes % 2.0, Eosinophils % 0.1, Basophils % 0.2, Absolute Granulocytes 12.8 H, Absolute Lymphocytes 1.2, Absolute Monocytes 0.3, Absolute Eosinophils 0, Absolute Basophils 0, PUBS MCHC 33.5, Random Vancomycin 11.5 04/30/16 1800: Lactic Acid 1.0 04/30/16 1300: Lactic Acid 3.1 H Impression/Plan Impression/Plan Impression/Plan: Impression 60 year old man - glioma likely progressed to GBM - resolved erika - ?sepsis secondary to ?uti Plan - hem/onc appreciated - renal function resolved - change abx to ceftriaxone for 3 more days - off pressors - prognosis remains grim secondary to nature of underlying malignancy - cardiology follow up DVT prophylaxis at all times with ALPS DG to GM Code Status: Do Not Resucitate/Intubat
[2016-05-01 16:00] VITALS: BP 148/90
--- NOTE | 2016-05-01 17:26 | PN- Cardiology ---
Subjective Subjective: The patient is noted to have sinus tachycardia with occasional premature ventricular contractions. No new complaints. Objective Vital Signs and I&Os Vital Signs Date Time Temp Pulse Resp B/P Pulse O2 O2 Flow FiO2 Ox Delivery Rate 05/01 1600 97.5 106 24 148/90 97 Room Air 05/01 1600 97 Room Air 05/01 0800 99 Room Air 05/01 08 97.7 105 24 156/80 99 Room Air 05/01 0000 98 Room Air Room Air 05/01 0000 97.1 109 24 146/90 98 Room Air Room Air Intake & Output 05/01 1600 05/01 0800 03 0000 / 1600 04/30 0804/30 0000 Intake Total 840 205 934 2143 816 1225 Output Total 400 300 220 200 270 300 Balance 440 430 675 4263 546 925 Intake, IV 600 541 600 246 167 9842 Intake, Oral 240 60 240 600 240 Number 0 0 0 1 Bowel Movements Output, Urine 400 300 220 200 270 300 Physical Exam: Gen: The patient is in no acute distress HEENT: Normal nose, ears, and oropharynx. Pupils equal bilaterally. Conjunctiva normal. Neck: Supple with no JVD, no masses, and no thyromegaly Lungs: Scattered rhonchi with normal respiratory effort Heart: RRR, S1, S2, no murmurs. No peripheral edema, 2+ pulses in the lower extremities bilaterally Abdomen: Soft, nontender, no masses. No hepatomegaly. No splenomegaly Extremities: No clubbing or cyanosis. Normal muscle strength in the upper and lower extremities Skin: Normal skin turgor with no skin ulcers or lesions noted. Current Medications: Current Medications Sig/Ness Start time Last Medication Dose Route Stop Time Status Admin Acetaminophen 650 MG Q6P PRN 04/29 1900 AC PO Ceftazidime 1,000 MG Q8H 05/01 1000 DC IV Ceftazidime 1,000 MG DAILY 04/29 1000 DC 04/30 IV 1028 Ceftriaxone Sodium 1,000 MG DAILY 05/01 1032 AC 05/01 IV 05/03 1001 1142 Dexamethasone 2 MG Q8 04/29 2200 AC 05/01 PO 1430 Dextrose/Sodium 1,000 ML Q13H 04/29 0900 AC 05/01 Chloride IV 1149 Insulin Aspart 0 TIDAC 04/30 0800 AC 05/01 SC 1641 Lacosamide 200 MG BID 04/30 1000 AC 05/01 PO 1141 Levetiracetam 500 MG BID 04/29 2200 AC 05/01 PO 1145 Lorazepam 1 MG ONE ONE 05/01 1430 DC 05/01 PO 05/01 1431 1431 Magnesium Oxide 400 MG ONE ONE 05/01 1345 DC 05/01 PO 05/01 1346 1430 Omeprazole 40 MG DAILY AC 04/30 0700 AC 05/01 PO 0625 Phenytoin 200 MG DAILY 04/30 1000 AC 05/01 PO 1143 Phenytoin 300 MG AT BEDTIME 04/29 220 AC 04/30 PO 2219 Sodium Chloride 500 ML BOLUS ONE 04/30 1630 DC 04/30 IV 04/30 1729 1800 Vancomycin HCl 1,000 MG DAILY 05/01 1000 CAN Dextrose/Water 250 ML IV Results Last 48 Hrs of Labs/Mics: Laboratory Tests 05/01/16 0459: Anion Gap 11, Estimated GFR > 60, BUN/Creatinine Ratio 48.9 H, Phosphorus 3.6, Magnesium 1.9, AST 151 H, ALT 535 H, CBC w Diff NO MAN DIFF REQ, RBC 2.98 L, MCV 87.4, MCH 29.3, RDW 20.0 H, MPV 8.3, Gran % 89.5 H, Lymphocytes % 8.2 L, Monocytes % 2.0, Eosinophils % 0.1, Basophils % 0.2, Absolute Granulocytes 12.8 H, Absolute Lymphocytes 1.2, Absolute Monocytes 0.3, Absolute Eosinophils 0, Absolute Basophils 0, PUBS MCHC 33.5, Random Vancomycin 11.5 04/30/16 1800: Lactic Acid 1.0 04/30/16 1300: Lactic Acid 3.1 H 04/30/16 0415: Anion Gap 11, Estimated GFR > 60, Glucose 196 H, Calcium 8.3 L, Phosphorus 3.6 , Magnesium 1.9, Total Bilirubin 0.4, AST 394 H, ALT 585 H, Albumin 3.2 L, PT 19.1 H, INR 1.83 H, CBC w Diff NO MAN DIFF REQ, RBC 2.88 L, MCV 87.2, MCH 29.2, RDW 19.8 H, MPV 8.6, Gran % 93.9 H, Lymphocytes % 4.8 L, Monocytes % 1.3 L, Eosinophils % 0, Basophils % 0 L, Absolute Granulocytes 13.8 H, Absolute Lymphocytes 0.7 L, Absolute Monocytes 0.2, Absolute Eosinophils 0, Absolute Basophils 0, PUBS MCHC 33.5, Random Vancomycin 10.5 04/29/16 1836: Sodium Cancelled Assessment/Plan Assessment/Plan Assessment: 1. Sepsis, and 2. Glioblastoma multiforme 3. Diabetes mellitus 4. Sinus tachycardia, improving 5. Ventricular ectopy plan: * Antibiotics as per the medical service * Off pressors * Normal left ventricular function noted on echo. * Continue cardiac monitoring. No further cardiac workup is needed at this time. Continue telemetry? Yes
[2016-05-02] VITALS: BP 136/76
[2016-05-02 04:41] LABS: ABSOLUTE BASOPHIL COUNT 0 /CUMM (0.0-0.2); ABSOLUTE EOSINOPHIL COUNT 0 /CUMM (0.0-0.7); ABSOLUTE GRANULOCYTE CT 8.1 /CUMM (1.4-6.5); ABSOLUTE LYMPH COUNT 1.2 /CUMM (1.2-3.4); ABSOLUTE MONOCYTE COUNT 0.2 /CUMM (0.10-0.60); BASOPHIL % 0.4 % (0.0-2.0); EOSINOPHIL % 0.3 % (0-5); GRANULOCYTE % 84.2 % (42.2-75.2); MEAN CORPUSCULAR HGB 29.2 PG (27.0-31.0); MEAN CORPUSCULAR HGB CONC 33.5 G/DL (33.0-37.0); MEAN CORPUSCULAR VOLUME 87.3 FL (80.0-94.0); MEAN PLATELET VOLUME 8.1 FL (7.4-10.4); PLATELET COUNT 71 /CUMM (130-400); RED BLOOD CELL CT 2.86 /CUMM (4.70-6.10); WHITE BLOOD CELL COUNT 9.6 /CUMM (4.8-10.8)
--- NOTE | 2016-05-02 06:59 | PN- Housestaff ---
Subjective Follow-up For: Septic shock Thrombocytopenia Shock liver Persistent sinus tachycardia with ventricular ectopy Glioblastoma multiforme Subjective: No acute events overnight. Patient seen and examined this morning. He reports that he does not feel good but denies chest or abdominal pain, shortness of breathness, nausea, vomiting or diarrhea. He is oriented to name only, but not place or time. His oral intake has improved. Review of Systems Constitutional: Denies: chills, fever. Cardiovascular: Denies: chest pain. Respiratory: Denies: short of breath. Gastrointestinal: Denies: abdominal pain, diarrhea, nausea, vomiting. Genitourinary: Reports: no symptoms. Objective Last 24 Hrs of Vital Signs/I&O Vital Signs Date Time Temp Pulse Resp B/P Pulse O2 O2 Flow FiO2 Ox Delivery Rate 05/02 0000 99 Room Air 05/02 0000 97.7 93 23 136/76 99 Room Air 05/01 2000 99 Room Air 05/01 1600 97.5 106 24 148/90 97 Room Air 05/01 1600 97 Room Air Intake & Output 05/02 1600 05/02 0800 05/02 0000 Intake Total 554 694.2 Output Total 400 450 Balance 154 244.2 Intake, IV 554 574.2 Intake, Oral 0 120 Number 0 0 Bowel Movements Output, Urine 400 450 Physical Exam General Appearance: Alert, No Acute Distress HEENT: Atraumatic, Mucous Membr. moist/pink Neck: Supple Cardiovascular: Regular Rate, Normal S1, Normal S2, No Murmurs, Gallops, Rubs Lungs: Clear to Auscultation Abdomen: Soft, No Tenderness, Positive Bowel Sounds Neurological: Oriented to Name Only, Left-Sided Hemiparesis (Chronic) Extremities: No Clubbing, No Cyanosis, No Edema Current Medications: Current Medications Sig/Ness Start time Last Medication Dose Route Stop Time Status Admin Acetaminophen 650 MG Q6P PRN 04/29 1900 AC PO Ceftazidime 1,000 MG Q8H 05/01 1000 DC IV Ceftazidime 1,000 MG DAILY 04/29 1000 DC 04/30 IV 1028 Ceftriaxone Sodium 1,000 MG DAILY 05/01 1032 AC / IV 05/03 1001 1142 Dexamethasone 2 MG Q8 04/29 2200 AC 05/01 PO 2155 Dextrose/Sodium 1,000 ML Q13H 04/29 0900 DC 05/02 Chloride IV 0137 Heparin Sodium 100 UNIT .STK-MED ONE 05/01 190 DC (Porcine) IV 05/01 190 Insulin Aspart 0 TIDAC 04/30 0800 AC 05/01 SC 1641 Lacosamide 200 MG BID 04/30 1000 AC 05/01 PO 2154 Levetiracetam 500 MG BID 04/29 2200 AC / PO 2155 Lorazepam 1 MG ONE ONE 05/01 1430 DC 05/01 PO 05/01 1431 1431 Magnesium Oxide 400 MG ONE ONE 05/01 1345 DC / PO 05/01 1346 1430 Omeprazole 40 MG DAILY AC 04/30 0700 AC 05/01 PO 0625 Phenytoin 200 MG DAILY 04/30 1000 AC 05/01 PO 1143 Phenytoin 300 MG AT BEDTIME 04/29 2200 AC 05/01 PO 2155 Vancomycin HCl 1,000 MG DAILY 05/01 1000 CAN Dextrose/Water 250 ML IV Last 24 Hrs of Lab/Noel Results Last 24 Hrs of Labs/Mics: Laboratory Tests 05/02/16 0404: Anion Gap 11, Estimated GFR > 60, BUN/Creatinine Ratio 41.4 H, Total Bilirubin 0.4, Direct Bilirubin 0.4, AST 104 H, ALT 391 H, Alkaline Phosphatase 148 H, Total Protein 5.8 L, Albumin 3.4 L, CBC w Diff MAN DIFF ORDERED, RBC 2.86 L, MCV 87.3, MCH 29.2, RDW 20.0 H, MPV 8.1, Gran % 84.2 H, Lymphocytes % 12.5 L, Monocytes % 2.6, Eosinophils % 0.3, Basophils % 0.4, Absolute Granulocytes 8.1 H, Absolute Lymphocytes 1.2, Absolute Monocytes 0.2, Absolute Eosinophils 0, Absolute Basophils 0, Platelet Estimate DECREASED, Polychromasia 1+, Anisocytosis 1+, Ovalocytes 1+, PUBS MCHC 33.5 Orders Miscellaneous Findings: MODIFIED BARIUM SWALLOW: 1. No penetration or aspiration observed with all consistencies. 2. Mild pooling of contrast in the valleculae. 3. Speech pathologist assessment issued separately. 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 #Septic shock: Resolved. Of unclear source, but potential etiologies include UTI given pyuria and indwelling Lara, pneumonia given altered mental status and respiratory distress on admission as well as history of seizures or an intraabdominal process. Switched to ceftriaxone yesterday after receiving 3 doses of vancomycin and ceftazidime. BCx and UCx negative. CT Chest/Abdomen/ Pelvis with no obvious source. Modified barium swallow study today was without evidence of aspiration. * Continue ceftriaxone 1 g IV (05/01/16-05/03/16). #Glioblastoma multiforme: Complicated by seizures and intracranial bleed in 2014 requiring clot evacuation. Follows with Dr. Knott in [place]. S/p 1 cycle of procarbazine/lomustine/vincristine. Poor performance status with left-sideed hemiparesis at baseline. * Continue prior to admission antiseizure medications phenytoin 200 mg PO daily and 300 mg PO QHS, Keppra 500 mg PO BID and Vimpat 100 mg PO Q12H. * Continue dexamethasone 2 mg PO Q8H. #Thrombocytopenia: Platelets remain in the 70-80s. Most likely multifactorial, etiology, caused by a combination of bone marrow suppression 2/2 sepsis, increased consumption related to DIC during sepsis and chemotherapy. * Continue to monitor platelet count daily. * ALPs for DVT PPx. #Persistent sinus tachycardia with ventricular ectopy: Likely multifactorial secondary to acute issues including sepsis and anemia. ECHO with normal LVEF. * No further cardiac workup indicated at this time per cardiology. * OK to discontinue telemetry per cardiology. #T2DM: Blood sugars well-controlled. * Hold oral hypoglycemic agents while inpatient. * Accu-checks and Novolog TIDAC/QHS sliding scale. Diet: Consistent Carbohydrate 2 DVT PPx: ALPs CODE: DNR/DNI Problem List: 1. Glioblastoma multiforme 2. T2DM (type 2 diabetes mellitus) 3. Shock liver 4. Thrombocytopenia 5. Sinus tachycardia 6. Ventricular ectopy 7. Septic shock Pain Ratin Pain Location: N/A Pain Goal: Remain pain free Pain Plan: Tylenol 650 mg PO Q6H Tomorrow's Labs & Rationales: CBC to monitor WBC in the setting of infection
[2016-05-02 08:00] VITALS: BP 148/90
--- NOTE | 2016-05-02 09:40 | PN- Oncology ---
Subjective Subjective: He denies any new pain. He reports doing okay. He has no new symptoms. Review of Systems: Limited due to mental status. Review of Systems Constitutional: Reports: weakness. Denies: chills, fever. Respiratory: Denies: short of breath. Gastrointestinal: Reports: abdominal pain. Genitourinary: Denies: dysuria. Musculoskeletal: Denies: back pain. Neurological/Psychological: Denies: anxiety, confusion. All Other Systems: Reviewed and Negative Objective Vital Signs and I&Os Vital Signs Date Time Temp Pulse Resp B/P Pulse O2 O2 Flow FiO2 Ox Delivery Rate 05/03 799 98.8 112 20 148/90 98 Room Air 05/02 0000 99 Room Air 05/02 0000 97.7 93 23 136/76 99 Room Air 05/01 2000 99 Room Air 05/01 1600 97.5 106 24 148/90 97 Room Air 05/01 1600 97 Room Air Intake & Output 05/02 1600 05/02 0800 / 0000 05/01 1600 05/01 0800 05/01 0000 Intake Total 554 694.2 840 601 840 Output Total 400 450 400 300 220 Balance 154 244.2 440 301 620 Intake, IV 554 574.2 600 541 600 Intake, Oral 0 120 240 60 240 Number 0 0 0 0 Bowel Movements Output, Urine 400 450 400 300 220 Physical Exam General Appearance: awake, comfortable Respiratory: normal breath sounds, chest non-tender, clear anteriorly Cardiovascular: tachycardia Abdomen: normal bowel sounds, soft, non-tender Extremities: pedal edema, in restraints Neurologic/Psychiatric: awake, alert, oriented to self Lymphatic: no anterior cervical davian Current Medications: Current Medications Sig/Ness Start time Last Medication Dose Route Stop Time Status Admin Acetaminophen 650 MG Q6P PRN 04/29 1900 AC PO Ceftazidime 1,000 MG Q8H 05/01 1000 DC IV Ceftriaxone Sodium 1,000 MG DAILY 05/01 1032 AC 05/01 IV 05/03 1001 1142 Dexamethasone 2 MG Q8 04/29 2200 AC 05/01 PO 2155 Dextrose/Sodium 1,000 ML Q13H 04/29 0900 DC 05/02 Chloride IV 0137 Heparin Sodium 100 UNIT .STK-MED ONE 05/01 190 DC (Porcine) IV 05/01 190 Insulin Aspart 0 TIDAC 04/30 0800 AC 05/01 SC 1641 Lacosamide 200 MG BID 04/30 1000 AC 05/01 PO 2154 Levetiracetam 500 MG BID 04/29 2200 AC 05/01 PO 2155 Lorazepam 1 MG ONE ONE 05/01 1430 DC 05/01 PO 05/01 1431 1431 Magnesium Oxide 400 MG ONE ONE 05/01 1345 DC 05/01 PO 05/01 1346 1430 Omeprazole 40 MG DAILY AC 04/30 0700 AC 05/01 PO 0625 Phenytoin 200 MG DAILY 04/30 1000 AC 05/01 PO 1143 Phenytoin 300 MG AT BEDTIME 04/29 2199 AC 05/01 PO 2155 Results Last 24 Hours of Lab Results: Laboratory Tests 05/02 0404 Chemistry Sodium (137 - 145 mmol/L) 139 Potassium (3.5 - 5.1 mmol/L) 4.3 Chloride (98 - 107 mmol/L) 108 H Carbon Dioxide (22 - 30 mmol/L) 20 L Anion Gap (5 - 16) 11 BUN (9 - 20 mg/dL) 29 H Creatinine (0.7 - 1.2 mg/dL) 0.7 Estimated GFR (>60 ml/min) > 60 BUN/Creatinine Ratio (7 - 25 %) 41.4 H Total Bilirubin (0.2 - 1.3 mg/dL) 0.4 Direct Bilirubin (< 0.4 mg/dL) 0.4 AST (17 - 59 U/L) 104 H ALT (21 - 72 U/L) 391 H Alkaline Phosphatase (< 127 U/L) 148 H Total Protein (6.3 - 8.2 g/dL) 5.8 L Albumin (3.5 - 5.0 g/dL) 3.4 L Hematology CBC w Diff MAN DIFF ORDERED WBC (4.8 - 10.8 /CUMM) 9.6 RBC (4.70 - 6.10 /CUMM) 2.86 L Hgb (14.0 - 18.0 G/DL) 8.4 L Hct (42 - 52 %) 25.0 L MCV (80.0 - 94.0 FL) 87.3 MCH (27.0 - 31.0 PG) 29.2 RDW (11.5 - 14.5 %) 20.0 H Plt Count (130 - 400 /CUMM) 71 L MPV (7.4 - 10.4 FL) 8.1 Gran % (42.2 - 75.2 %) 84.2 H Lymphocytes % (20.5 - 51.1 %) 12.5 L Monocytes % (1.7 - 9.3 %) 2.6 Eosinophils % (0 - 5 %) 0.3 Basophils % (0.0 - 2.0 %) 0.4 Absolute Granulocytes (1.4 - 6.5 /CUMM) 8.1 H Absolute Lymphocytes (1.2 - 3.4 /CUMM) 1.2 Absolute Monocytes (0.10 - 0.60 /CUMM) 0.2 Absolute Eosinophils (0.0 - 0.7 /CUMM) 0 Absolute Basophils (0.0 - 0.2 /CUMM) 0 Platelet Estimate (ADEQUATE) DECREASED Polychromasia 1+ Anisocytosis 1+ Ovalocytes 1+ PUBS MCHC (33.0 - 37.0 G/DL) 33.5 Assessment/Plan Assessment/Recommendations: Mr. Carrera is a 60 y/o man with h/o progressive glioma, now likely transformed to GBM, status post cycle 1 Procarbazine/Lomustine/Vincristine chemotherapy, admit for [facility] with septic shock. He has recovered significantly. He is alert but is orient only to self. His platelet count is fluctuating for the past few days. He is likely still recovering from his septic shock and antibiotics. Recommendation: 1. Continue trending platelet count 2. Follow up as outpatient for further discussion of options Please call [phone] with any urgent need or his primary oncologist at [phone] for any patient specific issue. Problem List: 1. Thrombocytopenia 2. Glioblastoma multiforme 3. Septic shock
--- NOTE | 2016-05-02 14:17 | PN- Pulmonary ---
Subjective HPI/Critical Care Issues: pt seen and examined awaiting downgrade no new issues no pains no n/v/d/c no dyspnea Objective Current Medications: Current Medications Sig/Ness Start time Last Medication Dose Route Stop Time Status Admin Acetaminophen 650 MG Q6P PRN 04/29 1900 AC 05/02 PO 1225 Ceftriaxone Sodium 1,000 MG DAILY 05/01 1032 AC 05/02 IV /08 1001 1129 Dexamethasone 2 MG Q8 04/29 2200 AC 05/02 PO 1359 Dextrose/Sodium 1,000 ML Q13H 04/29 0900 DC 05/02 Chloride IV 0137 Heparin Sodium 500 UNIT .STK-MED ONE 05/02 0457 DC (Porcine) IV 05/02 0458 Heparin Sodium 100 UNIT .STK-MED ONE 05/01 1907 DC (Porcine) IV 05/01 1908 Insulin Aspart 0 TIDAC 04/30 0800 AC 05/01 SC 1641 Lacosamide 200 MG BID 04/30 1000 AC 05/02 PO 1129 Levetiracetam 500 MG BID 04/29 2200 AC 05/02 PO 1129 Lorazepam 1 MG ONE ONE 05/01 1430 DC 05/01 PO 05/01 1431 1431 Omeprazole 40 MG DAILY AC 04/30 0700 AC 05/01 PO 0625 Phenytoin 200 MG DAILY 04/30 1000 AC 05/02 PO 1124 Phenytoin 300 MG AT BEDTIME 04/29 2200 AC 05/01 PO 2155 Vital Signs & I&O Last 24 Hrs of Vitals and I&O: Vital Signs Date Time Temp Pulse Resp B/P Pulse O2 O2 Flow FiO2 Ox Delivery Rate 05/02 1312 Room Air Room Air 05/02 1253 Room Air Room Air 05/02 1238 Room Air Room Air 05/02 0800 98.8 112 20 148/90 98 Room Air 05/02 0800 98 Room Air / 0000 99 Room Air / 0000 97.7 93 23 136/76 99 Room Air 05/01 2000 99 Room Air 05/01 1600 97.5 106 24 148/90 97 Room Air 05/01 1600 97 Room Air Intake & Output 05/02 1600 / 0800 03/ 0000 Intake Total 554 694.2 Output Total 400 450 Balance 154 244.2 Intake, IV 554 574.2 Intake, Oral 0 120 Number 0 0 Bowel Movements Output, Urine 400 450 Exam Other Physical Findings: gen awake and comfortable heent no acute findings cvs s1, s2 lungs ctab abd soft bs+ ext without edema neuro chronic left sided weakness Results Last 24 Hrs of Lab Results: Laboratory Tests 05/02/16 0404: Anion Gap 11, Estimated GFR > 60, BUN/Creatinine Ratio 41.4 H, Total Bilirubin 0.4, Direct Bilirubin 0.4, AST 104 H, ALT 391 H, Alkaline Phosphatase 148 H, Total Protein 5.8 L, Albumin 3.4 L, CBC w Diff MAN DIFF ORDERED, RBC 2.86 L, MCV 87.3, MCH 29.2, RDW 20.0 H, MPV 8.1, Gran % 84.2 H, Lymphocytes % 12.5 L, Monocytes % 2.6, Eosinophils % 0.3, Basophils % 0.4, Absolute Granulocytes 8.1 H, Absolute Lymphocytes 1.2, Absolute Monocytes 0.2, Absolute Eosinophils 0, Absolute Basophils 0, Platelet Estimate DECREASED, Polychromasia 1+, Anisocytosis 1+, Ovalocytes 1+, PUBS MCHC 33.5 Impression/Plan Impression/Plan Impression/Plan: Impression 60 year old man - glioma likely progressed to GBM - resolved erika - ?sepsis secondary to ?uti Plan - hem/onc appreciated - renal function resolved - ceftriaxone for 2 more days - prognosis remains grim secondary to nature of underlying malignancy - cardiology follow up DVT prophylaxis at all times with ALPS DG to GM
--- NOTE | 2016-05-02 14:27 | RADIOLOGY REPORT ---
EXAMINATION: XR MODIFIED BARIUM SWALLOW CLINICAL INFORMATION: Acute mental status changes. Brain cancer. Evaluate for aspiration. COMPARISON: None. TECHNIQUE: A modified barium swallow was performed with speech pathologist in attendance. Pur?e, honey thick, nectar thick, thin, bread, and cracker consistencies were given to the patient and the swallowing mechanism was observed fluoroscopically with several spot films taken. FLUOROSCOPY TIME: 2 minutes 44 seconds. FINDINGS: With all consistencies, the oropharyngeal phase of swallowing is normal with no laryngeal or nasopharyngeal aspiration seen. Mild pooling of contrast is noted in the valleculae with all consistencies. There is slight delay in posterior bolus propagation observed with nectar and thin consistencies. IMPRESSION: 1. No penetration or aspiration observed with all consistencies. 2. Mild pooling of contrast in the valleculae. 3. Speech pathologist assessment issued separately.
[2016-05-02 16:00] VITALS: BP 130/77
[2016-05-03] VITALS: BP 140/90
[2016-05-03 05:18] LABS: ABSOLUTE BASOPHIL COUNT 0 /CUMM (0.0-0.2); ABSOLUTE EOSINOPHIL COUNT 0.1 /CUMM (0.0-0.7); ABSOLUTE GRANULOCYTE CT 6.4 /CUMM (1.4-6.5); ABSOLUTE LYMPH COUNT 0.8 /CUMM (1.2-3.4); ABSOLUTE MONOCYTE COUNT 0.2 /CUMM (0.10-0.60); BASOPHIL % 0.1 % (0.0-2.0); EOSINOPHIL % 0.9 % (0-5); HEMATOCRIT 25.5 % (42-52); MEAN CORPUSCULAR HGB 28.9 PG (27.0-31.0); MEAN CORPUSCULAR HGB CONC 33.1 G/DL (33.0-37.0); MEAN CORPUSCULAR VOLUME 87.5 FL (80.0-94.0); MEAN PLATELET VOLUME 8.7 FL (7.4-10.4); PLATELET COUNT 74 /CUMM (130-400); RBC DISTRIBUTION WIDTH 19.9 % (11.5-14.5); RED BLOOD CELL CT 2.91 /CUMM (4.70-6.10); WHITE BLOOD CELL COUNT 7.6 /CUMM (4.8-10.8)
[2016-05-03 05:48] LABS: GRANULOCYTE % 85.2 % (42.2-75.2)
--- NOTE | 2016-05-03 07:06 | PN- Housestaff ---
Subjective Follow-up For: Septic shock Thrombocytopenia Persistent sinus tachycardia with ventricular ectopy Subjective: No acute events overnight. Patient was seen and examined this morning. He is resting comfortably in bed. He has no complaints. He's awaiting STR placement. Review of Systems Constitutional: Denies: chills, fever. Cardiovascular: Denies: chest pain. Respiratory: Denies: short of breath. Gastrointestinal: Denies: abdominal pain, diarrhea, nausea, vomiting. Objective Last 24 Hrs of Vital Signs/I&O Vital Signs Date Time Temp Pulse Resp B/P Pulse O2 O2 Flow FiO2 Ox Delivery Rate 05/03 0000 98.2 114 20 140/90 98 Room Air 05/02 1600 98.7 116 20 130/77 96 Room Air 05/02 1312 Room Air Room Air 05/02 1253 Room Air Room Air Intake & Output 05/03 1600 05/03 0800 05/03 0000 Intake Total 100 120 Output Total 400 350 Balance -300 -230 Intake, IV 0 Intake, Oral 100 120 Number 1 0 Bowel Movements Output, Urine 400 350 Physical Exam General Appearance: Alert, No Acute Distress HEENT: Atraumatic, Mucous Membr. moist/pink Neck: Supple Cardiovascular: Tachycardic Lungs: Clear to Auscultation Abdomen: Soft, No Tenderness, Positive Bowel Sounds Extremities: No Clubbing, No Cyanosis, No Edema Current Medications: Current Medications Sig/Ness Start time Last Medication Dose Route Stop Time Status Admin Acetaminophen 650 MG Q6P PRN 04/29 1900 AC 05/02 PO 1225 Ceftriaxone Sodium 1,000 MG DAILY 05/01 1032 DC / IV 05/03 1001 1020 Dexamethasone 2 MG Q8 04/29 2200 AC 05/03 PO 0555 Heparin Sodium 500 UNIT .STK-MED ONE 05/03 0339 DC (Porcine) IV 05/03 0340 Insulin Aspart 0 TIDAC 04/30 0800 AC 05/01 SC 1641 Lacosamide 200 MG BID 04/30 1000 AC 05/03 PO 1019 Levetiracetam 500 MG BID 04/29 2200 AC 05/03 PO 1019 Metoprolol Tartrate 25 MG BID 05/03 1103 AC PO Omeprazole 40 MG DAILY AC 04/30 0700 AC 05/03 PO 0554 Phenytoin 200 MG DAILY 04/30 1000 AC 05/03 PO 1020 Phenytoin 300 MG AT BEDTIME 04/29 2200 AC 05/02 PO 2150 Last 24 Hrs of Lab/Noel Results Last 24 Hrs of Labs/Mics: Laboratory Tests 05/03/16 0358: CBC w Diff NO MAN DIFF REQ, RBC 2.91 L, MCV 87.5, MCH 28.9, RDW 19.9 H, MPV 8.7, Gran % 85.2 H, Lymphocytes % 11.1 L, Monocytes % 2.7, Eosinophils % 0.9, Basophils % 0.1, Absolute Granulocytes 6.4, Absolute Lymphocytes 0.8 L, Absolute Monocytes 0.2, Absolute Eosinophils 0.1, Absolute Basophils 0, PUBS MCHC 33.1 Assessment/Plan Assessment: 60 y/o M with PMHx of 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 #Septic shock: Resolving. Of unclear source with negative cultures and imaging, but potential etiologies include UTI given pyuria and indwelling Lara, aspiration pneumonia given altered mental status and respiratory distress on admission or an intraabdominal process. S/p 3 days of vancomycin and ceftazidime (04/28-04/30) followed by 3 days of ceftriaxone (05/01-05/03). * Monitor off antibiotics. #Thrombocytopenia: Platelet count stable in the 70-80s. Most likely secondary to septic shock and will take some time to recover. No obvious bleeding. * Continue to monitor platelet count daily. * ALPs for DVT PPx. * Check CBC within a few days after discharge and forward results to primary oncologist Dr. Knott. #Glioblastoma multiforme: Complicated by seizures and intracranial bleed in 2014 requiring clot evacuation. S/p 1 cycle of procarbazine/lomustine/vincristine. Poor overall prognosis. * Continue prior to admission antiseizure medications phenytoin 200 mg PO daily and 300 mg PO QHS, Keppra 500 mg PO BID and Vimpat 100 mg PO Q12H. * Continue dexamethasone 2 mg PO Q8H. #Persistent sinus tachycardia with ventricular ectopy: Likely multifactorial secondary to acute issues including sepsis and anemia. ECHO with normal LVEF. * Resume prior to admission metoprolol 25 mg PO BID. * No further cardiac workup indicated at this time per cardiology. #T2DM: Blood sugars well-controlled. * Hold oral hypoglycemic agents while inpatient. * Accu-checks and Novolog TIDAC/QHS sliding scale. Diet: Consistent Carbohydrate 2 DVT PPx: ALPs CODE: DNR/DNI Problem List: 1. Sinus tachycardia 2. Ventricular ectopy 3. Thrombocytopenia 4. Glioblastoma multiforme 5. T2DM (type 2 diabetes mellitus) 6. Septic shock Pain Ratin Pain Location: N/A Pain Goal: Remain pain free Pain Plan: Tylenol 650 mg PO Q6H Tomorrow's Labs & Rationales: CBC to monitor WBC in the setting of infection Discharge Plan Discharge Disposition: awaiting STR/NH placement Stable for Discharge? Yes
[2016-05-03 08:00] VITALS: BP 130/90
--- NOTE | 2016-05-03 08:19 | PN- Oncology ---
Subjective Subjective: He is resting comfortably today. He has no complaints. Review of Systems: Limited due to mental status. Review of Systems Constitutional: Denies: chills, fever. Cardiovascular: Denies: chest pain. Respiratory: Denies: short of breath. Gastrointestinal: Denies: abdominal pain. Musculoskeletal: Reports: back pain. All Other Systems: Reviewed and Negative Objective Vital Signs and I&Os Vital Signs Date Time Temp Pulse Resp B/P Pulse O2 O2 Flow FiO2 Ox Delivery Rate 05/03 0000 98.2 114 20 140/90 98 Room Air 05/02 1600 98.7 116 20 130/77 96 Room Air 05/02 1312 Room Air Room Air 05/02 1253 Room Air Room Air 05/02 1238 Room Air Room Air Intake & Output 05/03 0000 05/02 1600 05/02 0805/02 0000 Intake Total 100 120 610 554 694.2 Output Total 400 350 325 400 450 Balance -300 -230 285 154 244.2 Intake, IV 0 150 554 574.2 Intake, Oral 100 120 460 0 120 Number 1 0 3 0 0 Bowel Movements Output, Urine 400 350 325 400 450 Physical Exam: General Appearance: awake, comfortable Respiratory: normal breath sounds, chest non-tender, clear anteriorly Cardiovascular: tachycardia Abdomen: normal bowel sounds, soft, non-tender Extremities: pedal edema, in restraints Neurologic/Psychiatric: awake, alert, oriented to self Current Medications: Current Medications Sig/Ness Start time Last Medication Dose Route Stop Time Status Admin Acetaminophen 325 MG .STK-MED ONE 05/02 1220 DC PO 05/02 1221 Acetaminophen 650 MG Q6P PRN 04/29 1900 AC 05/02 PO 1225 Ceftriaxone Sodium 1,000 MG DAILY 05/01 1032 AC 05/02 IV 05/03 1001 1129 Dexamethasone 2 MG Q8 04/29 2200 AC 05/03 PO 0555 Dextrose/Sodium 1,000 ML Q13H 04/29 0900 DC 05/02 Chloride IV 0137 Insulin Aspart 0 TIDAC 04/30 0800 AC 05/01 SC 1641 Lacosamide 200 MG BID 04/30 1000 AC 05/02 PO 2152 Levetiracetam 500 MG BID 04/29 2200 AC 05/02 PO 2150 Omeprazole 40 MG DAILY AC 04/30 07 AC 05/03 PO 0554 Phenytoin 200 MG DAILY 04/30 1000 AC 05/02 PO 1124 Phenytoin 300 MG AT BEDTIME 04/29 2200 AC 05/02 PO 2150 Results Last 24 Hours of Lab Results: Laboratory Tests 05/03 0358 Hematology CBC w Diff NO MAN DIFF REQ WBC (4.8 - 10.8 /CUMM) 7.6 RBC (4.70 - 6.10 /CUMM) 2.91 L Hgb (14.0 - 18.0 G/DL) 8.4 L Hct (42 - 52 %) 25.5 L MCV (80.0 - 94.0 FL) 87.5 MCH (27.0 - 31.0 PG) 28.9 RDW (11.5 - 14.5 %) 19.9 H Plt Count (130 - 400 /CUMM) 74 L MPV (7.4 - 10.4 FL) 8.7 Gran % (42.2 - 75.2 %) 85.2 H Lymphocytes % (20.5 - 51.1 %) 11.1 L Monocytes % (1.7 - 9.3 %) 2.7 Eosinophils % (0 - 5 %) 0.9 Basophils % (0.0 - 2.0 %) 0.1 Absolute Granulocytes (1.4 - 6.5 /CUMM) 6.4 Absolute Lymphocytes (1.2 - 3.4 /CUMM) 0.8 L Absolute Monocytes (0.10 - 0.60 /CUMM) 0.2 Absolute Eosinophils (0.0 - 0.7 /CUMM) 0.1 Absolute Basophils (0.0 - 0.2 /CUMM) 0 PUBS MCHC (33.0 - 37.0 G/DL) 33.1 Assessment/Plan Assessment/Recommendations: Mr. Carrera is a 60 y/o man with h/o progressive glioma, now likely transformed to GBM, status post cycle 1 Procarbazine/Lomustine/Vincristine chemotherapy, admit for [facility] with septic shock. Clinical condition continues to improve. Platelet count is stable. This will likely take time to recover from septic shock. He has no obvious bleeding. Hemoglobin is stable. Leukocytosis is resolved. GBM is currently being treated by Dr. Ruel Knott. Overall prognosis is poor given third line of therapy. He will need to follow up with Dr. Knott for further discussion of options. Recommendation: 1. Monitor CBC 2. Follow up as outpatient for further discussion of options Please call [phone] with any urgent need or his primary oncologist at for any patient specific issue. Problem List: 1. Thrombocytopenia 2. Glioblastoma multiforme
--- NOTE | 2016-05-03 10:08 | PN- Pulmonary ---
Subjective HPI/Critical Care Issues: pt seen and examined no evidence of aspiration gen med hold no new complaints last day of abx Objective Current Medications: Current Medications Sig/Ness Start time Last Medication Dose Route Stop Time Status Admin Acetaminophen 325 MG .STK-MED ONE 05/02 1220 DC PO 05/02 1221 Acetaminophen 650 MG Q6P PRN 04/29 1900 AC 05/02 PO 1225 Ceftriaxone Sodium 1,000 MG DAILY 05/01 1032 DC 05/02 IV 05/03 1001 1129 Dexamethasone 2 MG Q8 04/29 2200 AC 05/03 PO 0555 Insulin Aspart 0 TIDAC 04/30 0800 AC 05/01 SC 1641 Lacosamide 200 MG BID 04/30 1000 AC 05/02 PO 2152 Levetiracetam 500 MG BID 04/29 2200 AC 05/02 PO 2150 Omeprazole 40 MG DAILY AC 04/30 07 AC 05/03 PO 0554 Phenytoin 200 MG DAILY 04/30 1000 AC 05/02 PO 1124 Phenytoin 300 MG AT BEDTIME 04/29 220 AC 05/02 PO 2150 Vital Signs & I&O Last 24 Hrs of Vitals and I&O: Vital Signs Date Time Temp Pulse Resp B/P Pulse O2 O2 Flow FiO2 Ox Delivery Rate 05/03 0000 98.2 114 20 140/90 98 Room Air 05/02 1600 98.7 116 20 130/77 96 Room Air 05/02 1312 Room Air Room Air 05/02 1253 Room Air Room Air 05/02 1238 Room Air Room Air Intake & Output 05/03 1600 05/03 0800 05/03 0000 Intake Total 100 120 Output Total 400 350 Balance -300 -230 Intake, IV 0 Intake, Oral 100 120 Number 1 0 Bowel Movements Output, Urine 400 350 Exam Other Physical Findings: gen awake and comfortable heent no acute findings cvs s1, s2 lungs ctab abd soft bs+ ext without edema neuro chronic left sided weakness Results Last 24 Hrs of Lab Results: Laboratory Tests 05/03/16 0358: CBC w Diff NO MAN DIFF REQ, RBC 2.91 L, MCV 87.5, MCH 28.9, RDW 19.9 H, MPV 8.7, Gran % 85.2 H, Lymphocytes % 11.1 L, Monocytes % 2.7, Eosinophils % 0.9, Basophils % 0.1, Absolute Granulocytes 6.4, Absolute Lymphocytes 0.8 L, Absolute Monocytes 0.2, Absolute Eosinophils 0.1, Absolute Basophils 0, PUBS MCHC 33.1 Impression/Plan Impression/Plan Impression/Plan: Impression 60 year old man - glioma likely progressed to GBM - resolved erika - ?sepsis secondary to ?uti Plan - last day of abx, will d/w consultants, case management and family for dc planning - hem/onc appreciated - renal function resolved - ceftriaxone for 2 more days - prognosis remains grim secondary to nature of underlying malignancy - cardiology follow up DVT prophylaxis at all times with ALPS DG to GM monitor cbc as outpatient within few days of d/c to be reported to his primary oncologist.
[2016-05-03 16:00] VITALS: BP 122/82
--- NOTE | 2016-05-03 16:23 | Discharge Summary ---
Visit Information Visit Dates Admission Date: 04/28/16 Discharge Date: 05/11/16 Hospital Course Course Attending Physician: VERITO LAFLEUR MD Primary Care Physician: KELSI MACDONALD MD Consulting Request: 1 Consulting Specialty: Critical Care Consulting Physician: Dr Lafleur Reason for Consult: Septic Shock, hypoxic respiratory failure Consulting Request: 2 Consulting Specialty: Hematology/Oncology Consulting Physician: Dr. Cosme Reason for Consult: Thrombocytopenia, gliobastoma Hospital Course: Mr Carrera is a 60 y/o M with PMHx of HTN, T2DM and glioblastoma multiforme s/p resection in 2004 and adjuvant radiotherapy in 2005, recurrence in 2014 and intracranial bleed s/p clot evacuation, found to have multifocal progression in June 2015 and started on chemotherapy, but despite that had an increase in the size of the tumor therefore changed to a different chemo (procarbazine/lomustine /vincristine) in March 2016, who presents with unresponsiveness and hypoxia of several hours duration. At the facility he was reported to have blue legs, weak pedal pulses bilaterally, tachycardia, and a blood pressure in 50s, right eye sluggish to response, unable to lift the right arm, not able to lift right or left leg. The patient was lethargic and in respiratory distress on BiPAP and unable to provide any history therefore most of the history is obtained from patient's . Patient had a prolonged hospitalization recently at [facility] (-04/13/16) for recurrent seizures and fever felt to be secondary to aspiration pneumonia and gout and with negative cultures. Subsequently, he was discharged to [facility] and transferred to [facility] 1 day prior to admission. Of note, he follows oncologist Dr. Sallie Knott at [facility] and his last dose of chemotherapy was on 04/25/16. In the ED, he had a temperature of 97.9, pulse rate 148, respiratory rate 24, blood pressure 58/30, and oxygen saturation of 54% on 6 L of oxygen by nasal cannula, then started on BiPAP at 30% FiO2. Upon evaluation initial, the patient was awake and alert and talking appropriately however very lethargic, wearing a BiPAP and in aiwi-da-egwotzzp distress Physical findings include a buffalo hump, clear lungs, tachycardia, abdomen had positive bowel sounds, nontender, he was able to follow all commands, unable to lift left leg or left arm, right arm had to remove months, was able to lift the right leg to 40% above the bed. Mottled and purplish lower extremities up to the thighs Lab work included WBC count of 19.6, hemoglobin 9.2 and hematocrit of 29.9 with platelet count 210, no bands Sodium 138, and K 6.1, chloride 109, bicarbonate less than 5, anion gap 20, BUN 56, creatinine 5.7 (baseline unavailable but according to the his kidneys have been normal), lactic acid 12.1, ABG shows a pH of 7.01, PCO2 17, PO2 432, bicarbonate for on BiPAP 20/12/19 INR 1.40, PT 14.6, fibrinogen activity 338, d-dimer more than 5000 He was admitted to the ICU for further management, and down graded to general medicine floor (but remained in [facility] ICU as a hold) on 04/30/16. His hospital course is as follows: Problem List: 1. Acute hypoxemic respiratory failure: Patient was in respiratory distress on initial presentation, likely secondary to metabolic acidosis or possible aspiration pneumonia, and had to be placed on BiPAP initially at 100% FiO2 but later decreased to 30%, subsquently succesfully weaned off of it on day 2 of admission, when he was saturating at 97% on room air. He was also continued on total respiratory care. He received a dose of IV Methypred 125 in the ED followed by IV dexamethasome 2 mg Q8H and started on broad spectrum antibiotics including Vancomycin and Ceftazidime that were continued for 3 days and then narrowed down to Ceftrioxone for another 3 days. 2. Septic shock/Hypovolemic Shock: Upon admission, Mr. Carrera met SIRS criteria for sepsis in the presence of tachycardia (HR 148), tachypnea (RR 24) and leukocytosis (WBC 19.6), no bandemia , max 23.8, lactic acid levels of 12.1, consistent with severe sepsis in the setting of hypotension with SBP in 50s, not responding to 5 liters if NS, warranting pressors through a femaoral line placed in the ED, hence meeting criteria for septic shock, likely secondary to aspiration pneumonia given altered mental status and respiratory distress. CT Chest/Abdomen/Pelvis were negative. Urine and blood cultures remained negative. He recieved broad spectrum antibiotics including ceftazidime and Vancomycin for 3 days (04/28-04/30) followed by 3 days of ceftriaxone (05/01-05/03). Since then he has been monitored off of antibiotics with no fever spikes, hemodynamically stable and resolution of leukocytosis and lactic acidosis. He was succesfully weaned off of the levophed drip on day 2 of his admission and was mainting his blood pressure in 110s to 120s thereafter. He also has tramsaminitis due to shock liver in the setting of septic/hypovoemic shock. 3. Severe Metabolic Acidosis/Lactic Acidosis: The patient presented with marked lactic acidosis (lactate 12.1) and anion gap metabolic acidosis (bicarbonate <5 and anion gap 20). ABG 7.01/17/432/4 on initial presentation, later improved to 7.24/16/135/7 after 2 ampules of sodium bicarbonate and bicarbonate drip. His acidosis was likely secondary to septic shock. Lactic acid trended down to 1 after aggressive hydrate, bicarb therapy and treating the respiratory failure and sepsis. 4. Acute Kidney Injury: Presented with Cr of 5.7. Has normal kidney function at baseline. THis acute event of kidney failure was likely secondary to ischemic and likely septic ATN. After extensive goals of care discussion with nephrology, it was decided that dialysis was not an appropriate therapy and his Cr normalized to a level of 1.0 on day 3 of his admission after aggressive hydration and treatment of his septic shock. 5. Hyperkalemia: K was 6.1 on initial presentation, likely secondary to STEFAN and decreased K excretion. It normalized with aggressive IV hydration and sodium bicarbonate drip and was closely monitored. 6. Persistent sinus tachycardia with ventricular ectopy: The patient had sinus tachycardia upon admission and during his stay in the ICU along with intermittent ventricular ectopy but no complex arrhythmias. Cardiology reported no evidence of ventricular tachycardia and it was suspected that the rate was related to the patient's septic shock, respiratory failure and anemia. ECHO showed no obvious regional wall motion abnormalities and normal LVEF at 60-65%. Once his blood pressure was stablized, home dose of metoprolol 25 mg PO BID was resumed. 7. Thrombocytopenia: The patient had an H/H 9.2/26.8 and platelets 210 on admission. INR 1.40. He developed thrombocytopenia on day 2 of admission, most likely a combination of sepsis suppressing marrow, increased consumption related to DIC during sepsis, and chemotherapy. DIC panel showed fibrinogen activity to be 338, FDPs > 40, and D-Dimer > 5250. He did not received heparin and there was no obvious bleeding. Oncology recommended to monitor platelet counts. Platelet count reained stable in the 70-80s. ALPs for DVT PPx were placed. 8. Bilateral DVTs: On 05/04/16 the patient complained of right knee pain, was noted to have 3+ pitting edema of bilateral lower extremities, R >> L, warm to touch, nontender, no obvious redness or swelling at the right knee. Doppler ultrasound of bilateral legs showed DVT of bilateral legs extending from the common femoral vein down to the calf veins. Acoustical Tile Drill Press Operator-oncologist Dr. Cosme was contacted who suggested that patient would not be a candidate for anticoagulation given his thrombocytopenia and history of intracranial bleed. Patient's primary oncologist Dr. Knott was made aware and was in agreement that patient is not a good candidate for anticoagulation. Vascular surgery was consulted who felt that patient was not a good candidate for surgical intervention given his multiple co -morbidities and the contraindication to anticoagulation. Per patient's primary oncologist Dr. Knott, consider starting Lovenox 1 mg/kg BID only if patient is symptomatic. 9. Glioblastoma multiforme/Seizures: The patient first presented with oligodendroglioma in 2005, treated with resection followed by XRT but slow progression on MRI over years. In 2014 he developed seizures and on 07/2014 underwent second debulking surgery. Tumor was IDH-1 mutation +ve and MGMT methylated. Through 3258-1546 he was treated with a variety of chemotherapy regimens including Temodar and CPT-11/Avastin. MRI brain 09/2015 showed response to first 3 cycles CPT-11/Avastin. On 03/23/16, MRI was done for functional decline and more seizures/falls as well as worsening L sided weakness. He was proceeded with trial PCV (procarbazine/CCNU/vincristine) chemotherapy. On 04/03/16 he was admitted to [facility] before starting chemo due to fall with seizure, fever secondary to aspiration and gout attack, discharged on 04/13/16 to [facility], where he got weaker and on 04/27/16 was transferred to [facility] where he deteriorated and admitted at [facility] with acute hypoxic respiratory failure, septic shock and multiorgan failure including STEFAN and shock liver. During this hospital stay he was continued on prior to admission antiseizure medications in IV form, phenytoin 200 mg IV daily and 300 mg IV QHS, Keppra 500 mg IV BID and Vimpat 100 mg IV Q12, dexamethasone 2 mg IV Q8H. Prior to admission chemotherapy agent procarbazine 50 mg PO QHS was held while patient was NPO. Per oncologist Dr. Knott OK to miss a dose and the next dose is supposed to be on May 15 according to the . 10. C. difficile diarrhea: Patient had diarrhea with positive C. difficile and was subsequently started on oral Flagyl. After 1 day of antibiotics, diarrhea had significantly removed. Patient will complete the remaining course of Flagyl 500 mg PO TID on discharge for a total of 10 days. 11. Type 2 DM: He takes glimepride 2 mg PO daily which was held and was mainatined on insulin sliding scale and accucheks with appropriate control of his blood sugars. 12. Gout: Takes allopurinol 300 mg PO daily and colcichine 0.6 mg PO daily. These medications were held upon admission due to AMS and STEFAN but were eventually resumed. 13. Diet: Initially he was kept NPO, had a swallow eval and Modified Barium Swallow oliver showed no penetration or aspiration observed with all consistencies and was resumed on a regular, diabetic diet. 14: Lara: Lara catheter was placed in the ED on admission and remained in place throughout current hospitalization. It was removed on the afternoon of discharge but patient had not voided. Patient should be bladder scanned at the rehab facility and straight cathed if found to be retaining urine. 15. DVT PPx: ALPs 16. GI PPx: Protonix 40 mg IV daily 17. CODE: DNR/DNI There was a discussion with the family regarding Mr. Carrera's code status. His , Ellyn had already had a discussion with his out patietn oncologist, Dr. Garcia, who had mentioned due to his brain tumor he has a poor prognosis and it would not be advisable to be aggressive with his treatment as far as intubation and resuscitation is concerned. He was made DNR/DNI but with aggressive medical management for his acute shock including central/femoral line and pressior support which he got. Complications: None Allergies: Coded Allergies: No Known Allergies (04/28/16) Significant Procedures: Femoral Line Placement Pertinent Lab Results: Laboratory Tests 05/03/16 0358: CBC w Diff NO MAN DIFF REQ, RBC 2.91 L, MCV 87.5, MCH 28.9, RDW 19.9 H, MPV 8.7, Gran % 85.2 H, Lymphocytes % 11.1 L, Monocytes % 2.7, Eosinophils % 0.9, Basophils % 0.1, Absolute Granulocytes 6.4, Absolute Lymphocytes 0.8 L, Absolute Monocytes 0.2, Absolute Eosinophils 0.1, Absolute Basophils 0, PUBS MCHC 33.1 05/02/16 0404: Anion Gap 11, Estimated GFR > 60, BUN/Creatinine Ratio 41.4 H, Total Bilirubin 0.4, Direct Bilirubin 0.4, AST 104 H, ALT 391 H, Alkaline Phosphatase 148 H, Total Protein 5.8 L, Albumin 3.4 L, CBC w Diff MAN DIFF ORDERED, RBC 2.86 L, MCV 87.3, MCH 29.2, RDW 20.0 H, MPV 8.1, Gran % 84.2 H, Lymphocytes % 12.5 L, Monocytes % 2.6, Eosinophils % 0.3, Basophils % 0.4, Absolute Granulocytes 8.1 H, Absolute Lymphocytes 1.2, Absolute Monocytes 0.2, Absolute Eosinophils 0, Absolute Basophils 0, Platelet Estimate DECREASED, Polychromasia 1+, Anisocytosis 1+, Ovalocytes 1+, PUBS MCHC 33.5 05/01/16 0459: Anion Gap 11, Estimated GFR > 60, BUN/Creatinine Ratio 48.9 H, Phosphorus 3.6, Magnesium 1.9, AST 151 H, ALT 535 H, CBC w Diff NO MAN DIFF REQ, RBC 2.98 L, MCV 87.4, MCH 29.3, RDW 20.0 H, MPV 8.3, Gran % 89.5 H, Lymphocytes % 8.2 L, Monocytes % 2.0, Eosinophils % 0.1, Basophils % 0.2, Absolute Granulocytes 12.8 H, Absolute Lymphocytes 1.2, Absolute Monocytes 0.3, Absolute Eosinophils 0, Absolute Basophils 0, PUBS MCHC 33.5, Random Vancomycin 11.5 04/30/16 1800: Lactic Acid 1.0 Disposition Summary Disposition Principal Diagnosis: 1. Acute hypoxemic respiratory failure 2. Septic Shock 3. Severe Metabolic acidosis/Lactoic acidosis 4. Acute Kidney Injury 5. Hyperkalemia 6. Thrombocytopenia 7. Persistent sinus tachycardia with ventricular ectopy 8. Bilateral DVTs 9. C. difficile diarrhea Additional Diagnosis: 1. Type 2 Diabetes Mellitus 2. Gout 3. History of Glioblastoma multiforme 4. Seizures Discharge Disposition: SNF Discharge Instructions General Discharge Information Code Status: Do Not Resucitate/Intubat Patient's Diet: Consistent Carbohydrate, regular consistency Patient's Activity: Willl require rehab and STR, and help with ambulation and transferring Follow-Up Instructions/Appts: 1. Follow up with your primary care physician after discharge 2. Follow up with your Oncologist, Dr. Knott after discharge 3. Check your CBC in 2-3 days and forward results to your PCP and oncologist. 4. Follow up cardiology after discharge Medications at Discharge Discharge Medications: Continue taking these medications: Allopurinol (Allopurinol) 300 MG TABLET 1 Tablet ORAL DAILY Instructions: Reason to Stop at ADM:STEFAN Comments: Last Taken:05/11/16 Time:9AM Dexamethasone (Dexamethasone) 2 MG TABLET 2 Milligram ORAL EVERY 8 HOURS as needed for BRAIN TUMOR Instructions: Reason to Stop at ADM:CHANGED TO IV Comments: Last Taken:05/11/16 Time:6AM Folic Acid (Folic Acid) 1 MG TABLET 1 Tablet ORAL DAILY Comments: Last Taken: Time:NOT GIVEN ON THIS ADMISSION Glimepiride (Amaryl) 2 MG TABLET 2 Milligram ORAL DAILY Instructions: Reason to Stop at ADM:ISS Comments: Last Taken: Time:NOT GIVEN ON THIS ADMISSION Levetiracetam (Keppra) 500 MG TABLET 1 Tablet ORAL TWICE DAILY Instructions: Reason to Stop at ADM:PO TO IV Comments: Last Taken:05/11/16 Time:9AM Colchicine (Colchicine) 0.6 MG TABLET 1 Tablet ORAL DAILY Instructions: Reason to Stop at ADM:STEFAN Comments: Last Taken:05/11/16 Time:9AM Dronabinol (Marinol) 2.5 MG CAPSULE 1 Capsule ORAL TWICE DAILY Instructions: Reason to Stop at ADM: ON ZOFRAN Comments: Last Taken: Time:NOT GIVEN ON THIS ADMISSION Procarbazine Hydrochloride (Matulane) 50 MG CAPSULE 100 Milligram ORAL BEDTIME Comments: Last Taken: Time:NOT GIVEN ON THIS ADMISSION Metoprolol Tartrate (Lopressor) 50 MG TABLET 25 Milligram ORAL TWICE DAILY Instructions: Reason to Stop at ADM:SHOCK Comments: Last Taken:05/11/16 Time:9AM Gabapentin (Neurontin) 300 MG CAPSULE 1 Capsule ORAL THREE TIMES DAILY Comments: Last Taken: Time:NOT GIVEN ON THIS ADMISSION Phenytoin (Dilantin) 100 MG CAPSULE 2 Capsule ORAL THREE TIMES DAILY Pantoprazole Sodium (Protonix) 40 MG TABLET.DR 1 Tablet ORAL DAILY Comments: Last Taken: Time:NOT GIVEN ON THIS ADMISSION Thiamine HCl (Thiamine HCl) 100 MG TABLET 1 Tablet ORAL DAILY Comments: Last Taken: Time:NOT GIVEN ON THIS ADMISSION Phenytoin (Dilantin) 100 MG CAPSULE 300 Milligram ORAL BEDTIME Comments: Last Taken:05/11/16 Time:9AM Lacosamide (Vimpat) 200 MG TABLET 1 Tablet ORAL TWICE DAILY Instructions: Reason to Stop at ADM:PO TO IV Comments: Last Taken:05/11/16 Time: 0900AM Nut.tx.glucose Intolerance,Soy (Glucerna) 1 EACH BAR 1 Bar ORAL TWICE DAILY Comments: Last Taken: Time:NOT GIVEN ON THIS ADMISSION Start taking the following new medications: Metronidazole (Metronidazole) 500 MG TABLET 1 Tablet ORAL THREE TIMES DAILY Qty = 27 No Refills Comments: Last Taken:05/11/16 Time:1400 Copies To: KELSI MACDONALD MD; KATRINA STEVE,SUNNY; GAEL STEVE,SALLIE; MIQUEL STEVE,VERITO
--- NOTE | 2016-05-03 18:28 | Patient Discharge Instructions ---
Discharge Instructions General Discharge Information You were seen/treated for: Septic shock of unknown origin Bilateral lower extremity deep vein thrombosis C. difficile diarrhea Thrombocytopenia Anemia ATN Sinus tachycardia with ventricular ectopy Watch for these problems: Fevers or chills Shortness of breath Chest pain or racing heart Dizziness or fainting Unusual bruising or bleeding Special Instructions: Please see your primary care physician Dr. Denton within one week of discharge. Please follow up with your oncologist Dr. Knott regarding your cancer within two weeks of discharge. Please follow up with office nurse practitioner Dr. Leon regarding your heart within two weeks of discharge. Diet Recommended Diet: Diabetic Activity Additional ACTIVITY Info: As tolerated with assistance Acute Coronary Syndrome Inclusion Criteria At DC or during hospital stay patient has or had the following: ACS DIAGNOSIS No Discharge Core Measures Meds if any: Prescribed or Continued at Discharge Meds if any: NOT Prescribed or Continued at Discharge Congestive Heart Failure Inclusion Criteria At DC or during hospital stay patient has or had the following: CHF DIAGNOSIS No Discharge Core Measures Meds if any: Prescribed or Continued at Discharge Meds if any: NOT Prescribed or Continued at Discharge Cerebrovascular accident Inclusion Criteria At DC or during hospital stay patient has or had the following: CVA/TIA Diagnosis No Discharge Core Measures Meds if any: Prescribed or Continued at Discharge Meds if any: NOT Prescribed or Continued at Discharge Venous thromboembolism Inclusion Criteria VTE Diagnosis Yes VTE Type Deep Venous Thrombosis VTE Confirmed by (Test) EXT BILATERAL VENOUS DOPP Discharge Core Measures - Per Current guidelines, there needs to be overlap - treatment for the first 5 days of Warfarin therapy. - If discharged on Warfarin prior to 5 days of - overlap therapy, the patient will need to be - assessed for post discharge needs including - *Post discharge parental anticoagulation - *Warfarin and/or parental anticoagulation education - *Follow up date to check INR post discharge At least 5 days overlap therapy as Inpatient No Why was Parental Med stopped Anticoag Contraindicated Meds if any: Prescribed or Continued at Discharge Warfarin No Overlap Therapy No Note: Overlap Therapy is Warfarin and Anticoagulant Meds if any: NOT Prescribed or Continued at Discharge No Warfarin d/t Medical Contraindication (History of Intracranial Bleed) No Overlap Therapy d/t Medical Contraindication (History of Intracranial Bleed)
--- NOTE | 2016-05-03 18:33 | PN- Cardiology ---
Subjective Subjective: Clinically no change in CV status. Remains in sinus tachycardia with ventricular ectopy and no other complex arrhythmias. Objective Vital Signs and I&Os Vital Signs Date Time Temp Pulse Resp B/P Pulse O2 O2 Flow FiO2 Ox Delivery Rate 05/03 1600 95 Room Air 05/03 1600 99.1 112 24 122/82 95 Room Air 05/03 1323 Room Air Room Air 05/03 1315 125 130/90 05/03 0800 95 Room Air 05/03 0800 125 18 130/90 95 Room Air / 0000 98.2 114 20 140/90 98 Room Air Intake & Output 05/03 1600 05/03 0800 03/ 0000 05/02 1600 05/02 08 03/ 0000 Intake Total 480 100 120 610 554 694.2 Output Total 325 400 350 325 400 450 Balance 155 -300 -230 285 154 244.2 Intake, IV 0 150 554 574.2 Intake, Oral 480 100 120 460 0 120 Number 1 1 0 3 0 0 Bowel Movements Output, Urine 325 400 350 325 400 450 Physical Exam: Physical Exam: General Appearance: alert, awake, answers simple questions appropriately, follows commands Head: atraumatic, normal appearance Neck: supple, JVP normal, carotids 2+ bilaterally. No bruits heard Respiratory: Scattered bilateral rhonchi Cardiovascular: regular rate/rhythm, no audible murmurs Gastrointestinal: soft, non-tender, positive bowel sounds Extremities: no significant edema Current Medications: Current Medications Sig/Ness Start time Last Medication Dose Route Stop Time Status Admin Acetaminophen 650 MG Q6P PRN 04/29 1900 AC 05/02 PO 1225 Allopurinol 300 MG DAILY 05/03 1823 AC PO Ceftriaxone Sodium 1,000 MG DAILY 05/01 1032 DC /08 IV 05/03 1001 1020 Colchicine 600 MCG DAILY 05/03 1823 AC PO Dexamethasone 2 MG Q8 04/29 2200 AC 05/03 PO 1315 Heparin Sodium 500 UNIT .STK-MED ONE 05/03 0339 DC (Porcine) IV 05/03 0340 Insulin Aspart 0 TIDAC 04/30 0800 AC 05/01 SC 1641 Lacosamide 200 MG BID 04/30 1000 AC 05/03 PO 1019 Levetiracetam 500 MG BID 04/29 2200 AC 05/03 PO 1019 Metoprolol Tartrate 25 MG BID 05/03 1103 AC 05/03 PO 1315 Omeprazole 40 MG DAILY AC 04/30 0700 AC 05/03 PO 0554 Phenytoin 200 MG DAILY 04/30 1000 AC 05/03 PO 1020 Phenytoin 300 MG AT BEDTIME 04/29 2200 AC 05/02 PO 2150 Results Last 48 Hrs of Labs/Mics: Laboratory Tests 05/03/16 0358: CBC w Diff NO MAN DIFF REQ, RBC 2.91 L, MCV 87.5, MCH 28.9, RDW 19.9 H, MPV 8.7, Gran % 85.2 H, Lymphocytes % 11.1 L, Monocytes % 2.7, Eosinophils % 0.9, Basophils % 0.1, Absolute Granulocytes 6.4, Absolute Lymphocytes 0.8 L, Absolute Monocytes 0.2, Absolute Eosinophils 0.1, Absolute Basophils 0, PUBS MCHC 33.1 05/02/16 0404: Anion Gap 11, Estimated GFR > 60, BUN/Creatinine Ratio 41.4 H, Total Bilirubin 0.4, Direct Bilirubin 0.4, AST 104 H, ALT 391 H, Alkaline Phosphatase 148 H, Total Protein 5.8 L, Albumin 3.4 L, CBC w Diff MAN DIFF ORDERED, RBC 2.86 L, MCV 87.3, MCH 29.2, RDW 20.0 H, MPV 8.1, Gran % 84.2 H, Lymphocytes % 12.5 L, Monocytes % 2.6, Eosinophils % 0.3, Basophils % 0.4, Absolute Granulocytes 8.1 H, Absolute Lymphocytes 1.2, Absolute Monocytes 0.2, Absolute Eosinophils 0, Absolute Basophils 0, Platelet Estimate DECREASED, Polychromasia 1+, Anisocytosis 1+, Ovalocytes 1+, PUBS MCHC 33.5 Assessment/Plan Assessment/Plan Assessment: 1. Persistent sinus tachycardia with unifocal ventricular ectopy- 2. Acute hypoxemic respiratory failure 3. Sepsis with lactic acidosis 4. Type 2 diabetes 5. Glioblastoma multiforme 6. Acute renal insufficiency-improved; creatinine 1.0 today 7. Hypernatremia-improved 8. Anemia 9. Thrombocytopenia-decreased to 76,000 today 10. Shock liver/transaminitis Recommendations: - COntinue current supportive care - Continue as per the ICU team Continue telemetry? Yes
[2016-05-04 00:27] VITALS: BP 124/80
[2016-05-04 04:58] LABS: ABSOLUTE BASOPHIL COUNT 0 /CUMM (0.0-0.2); ABSOLUTE EOSINOPHIL COUNT 0.1 /CUMM (0.0-0.7); ABSOLUTE GRANULOCYTE CT 6.1 /CUMM (1.4-6.5); ABSOLUTE MONOCYTE COUNT 0.2 /CUMM (0.10-0.60); BASOPHIL % 0.3 % (0.0-2.0); EOSINOPHIL % 1.4 % (0-5); GRANULOCYTE % 82.3 % (42.2-75.2); HEMATOCRIT 25.2 % (42-52); MEAN CORPUSCULAR HGB 29.5 PG (27.0-31.0); MEAN CORPUSCULAR HGB CONC 33.8 G/DL (33.0-37.0); MEAN PLATELET VOLUME 8.4 FL (7.4-10.4); PLATELET COUNT 92 /CUMM (130-400); RBC DISTRIBUTION WIDTH 20.8 % (11.5-14.5); RED BLOOD CELL CT 2.89 /CUMM (4.70-6.10); WHITE BLOOD CELL COUNT 7.4 /CUMM (4.8-10.8)
--- NOTE | 2016-05-04 07:08 | PN- Housestaff ---
Subjective Follow-up For: Septic shock Thrombocytopenia Persistent sinus tachycardia with ventricular ectopy Subjective: No acute events overnight. Patient was seen and examined this morning. He is resting comfortably in bed. He is awaiting STR placement. Review of Systems Constitutional: Reports: no symptoms. Objective Last 24 Hrs of Vital Signs/I&O Vital Signs Date Time Temp Pulse Resp B/P Pulse O2 O2 Flow FiO2 Ox Delivery Rate 05/04 1011 Room Air Room Air 05/04 0800 97.9 110 24 132/78 96 Room Air / 0027 98.7 100 20 124/80 95 Room Air 03/08 1600 95 Room Air / 1600 99.1 112 24 122/82 95 Room Air / 1323 Room Air Room Air / 1315 125 130/90 Vital Signs Date Time Temp Pulse Resp B/P Pulse O2 O2 Flow FiO2 Ox Delivery Rate 05/04 1011 Room Air Room Air 05/04 0800 97.9 110 24 132/78 96 Room Air 03/ 0027 98.7 100 20 124/80 95 Room Air 03/08 1600 95 Room Air / 1600 99.1 112 24 122/82 95 Room Air /08 1323 Room Air Room Air 03/08 1315 125 130/90 Intake & Output / 1600 05/04 0800 / 0000 Intake Total 180 Output Total 250 Balance -70 Intake, Oral 180 Output, Urine 250 Physical Exam General Appearance: Lethargic but Arousable Skin: No Rashes HEENT: Atraumatic, Mucous Membr. moist/pink Neck: Supple Cardiovascular: Tachycardic Lungs: Clear to Auscultation Abdomen: Soft, No Tenderness, Positive Bowel Sounds Extremities: No Clubbing, No Cyanosis, No Edema Current Medications: Current Medications Sig/Ness Start time Last Medication Dose Route Stop Time Status Admin Acetaminophen 650 MG Q6P PRN 04/29 1900 AC 05/02 PO 1225 Allopurinol 300 MG DAILY 05/03 182 AC 05/03 PO 191 Colchicine 600 MCG DAILY 05/03 182 AC 05/03 PO 191 Dexamethasone 2 MG Q8 04/29 220 AC 05/04 PO 0525 Insulin Aspart 0 TIDAC 04/30 0800 AC 05/01 SC 1641 Lacosamide 200 MG BID 04/30 1000 AC 05/03 PO 2307 Levetiracetam 500 MG BID 04/290 AC 05/03 PO 2133 Metoprolol Tartrate 25 MG BID 05/03 1103 AC 05/03 PO 2307 Omeprazole 40 MG DAILY AC 04/30 0700 AC 05/04 PO 0525 Phenytoin 200 MG DAILY 04/30 1000 AC 05/03 PO 1020 Phenytoin 300 MG AT BEDTIME 04/29 2199 AC 05/03 PO 2133 Last 24 Hrs of Lab/Noel Results Last 24 Hrs of Labs/Mics: Laboratory Tests 05/04/16 0355: Anion Gap 13, Estimated GFR > 60, BUN/Creatinine Ratio 25.7 H, Glucose 127 H, Calcium 9.0, Phosphorus 3.7, Albumin 3.3 L, CBC w Diff NO MAN DIFF REQ, RBC 2.89 L, MCV 87.0, MCH 29.5, RDW 20.8 H, MPV 8.4, Gran % 82.3 H, Lymphocytes % 13.4 L, Monocytes % 2.6, Eosinophils % 1.4, Basophils % 0.3, Absolute Granulocytes 6.1, Absolute Lymphocytes 1.0 L, Absolute Monocytes 0.2, Absolute Eosinophils 0.1, Absolute Basophils 0, PUBS MCHC 33.8 Assessment/Plan Assessment: 60 y/o M with PMHx of progressive glioma transitioning to glioblastoma multiforme s/p 1 cycle of chemotherapy and T2DM who is admitted for septic shock with multisystem organ failure of unclear source. #Septic shock: Resolving. Of unclear source with negative cultures and imaging, but potential etiologies include UTI given pyuria and indwelling Lara, aspiration pneumonia given altered mental status and respiratory distress on admission or an intraabdominal process. S/p 3 days of vancomycin and ceftazidime (04/28-04/30) followed by 3 days of ceftriaxone (05/01-05/03). * Monitor off antibiotics. #Thrombocytopenia: Platelets have improved to 92. Most likely secondary to septic shock. No obvious bleeding. * Continue to monitor platelet count daily. * Check CBC within a few days after discharge and forward results to primary oncologist Dr. Knott. #Glioblastoma multiforme: Complicated by seizures and intracranial bleed in 2014 requiring clot evacuation. S/p 1 cycle of procarbazine/lomustine/vincristine. Poor overall prognosis. * Continue prior to admission antiseizure medications phenytoin 200 mg PO daily and 300 mg PO QHS, Keppra 500 mg PO BID and Vimpat 100 mg PO Q12H. * Continue dexamethasone 2 mg PO Q8H. #Persistent sinus tachycardia with ventricular ectopy: Likely multifactorial secondary to acute issues including sepsis and anemia. ECHO with normal LVEF. * Resume prior to admission metoprolol 25 mg PO BID. * No further cardiac workup indicated at this time per cardiology. #T2DM: Blood sugars well-controlled. * Hold oral hypoglycemic agents while inpatient. * Accu-checks and Novolog TIDAC/QHS sliding scale. Diet: Consistent Carbohydrate 2 DVT PPx: ALPs CODE: DNR/DNI Problem List: 1. Septic shock 2. T2DM (type 2 diabetes mellitus) 3. Glioblastoma multiforme 4. Multisystem organ failure 5. Sinus tachycardia Pain Ratin Pain Location: N/A Pain Goal: Remain pain free Pain Plan: Tylenol 650 mg PO Q6H Tomorrow's Labs & Rationales: CBC to monitor platelets in the setting of thrombocytopenia Discharge Plan Discharge Disposition: awaiting STR/NH placement Stable for Discharge? Yes
[2016-05-04 08:00] VITALS: BP 132/78
--- NOTE | 2016-05-04 11:28 | PN- Pulmonary ---
Subjective HPI/Critical Care Issues: pt seen and examined comfortable awaiting dc disposition no new events no pain, no dyspnea ros is somewhat limited, lethargic Objective Current Medications: Current Medications Sig/Ness Start time Last Medication Dose Route Stop Time Status Admin Acetaminophen 650 MG Q6P PRN 04/29 1900 AC 05/02 PO 1225 Allopurinol 300 MG DAILY 05/03 1823 AC 05/04 PO 1100 Colchicine 600 MCG DAILY 05/03 1823 AC 05/04 PO 1059 Dexamethasone 2 MG Q8 04/29 2200 AC 05/04 PO 0525 Insulin Aspart 0 TIDAC 04/30 08 AC 05/01 SC 1641 Lacosamide 200 MG BID 04/30 1000 AC 05/04 PO 1100 Levetiracetam 500 MG BID 04/29 2200 AC 05/04 PO 1059 Metoprolol Tartrate 25 MG BID 05/03 1103 AC 05/04 PO 1059 Omeprazole 40 MG DAILY AC 04/30 0700 AC 05/04 PO 0525 Phenytoin 200 MG DAILY 04/30 1000 AC 05/04 PO 1059 Phenytoin 300 MG AT BEDTIME 04/29 2200 AC 05/03 PO 2133 Vital Signs & I&O Last 24 Hrs of Vitals and I&O: Vital Signs Date Time Temp Pulse Resp B/P Pulse O2 O2 Flow FiO2 Ox Delivery Rate 05/04 1011 Room Air Room Air 05/05 799 97.9 110 24 132/78 96 Room Air 05/04 0027 98.7 100 20 124/80 95 Room Air 05/03 1600 95 Room Air 05/03 1600 99.1 112 24 122/82 95 Room Air 05/03 1323 Room Air Room Air 05/03 1315 125 130/90 Intake & Output 05/04 1600 05/04 0800 05/04 0000 Intake Total 180 Output Total 250 Balance -70 Intake, Oral 180 Output, Urine 250 Exam Other Physical Findings: gen awake and comfortable heent no acute findings cvs s1, s2 lungs ctab abd soft bs+ ext without edema neuro chronic left sided weakness Results Last 24 Hrs of Lab Results: Laboratory Tests 05/04/16 0355: Anion Gap 13, Estimated GFR > 60, BUN/Creatinine Ratio 25.7 H, Glucose 127 H, Calcium 9.0, Phosphorus 3.7, Albumin 3.3 L, CBC w Diff NO MAN DIFF REQ, RBC 2.89 L, MCV 87.0, MCH 29.5, RDW 20.8 H, MPV 8.4, Gran % 82.3 H, Lymphocytes % 13.4 L, Monocytes % 2.6, Eosinophils % 1.4, Basophils % 0.3, Absolute Granulocytes 6.1, Absolute Lymphocytes 1.0 L, Absolute Monocytes 0.2, Absolute Eosinophils 0.1, Absolute Basophils 0, PUBS MCHC 33.8 Impression/Plan Impression/Plan Impression/Plan: Impression 60 year old man - glioma likely progressed to GBM - resolved erika - ?sepsis secondary to ?uti Plan - off abx - hem/onc appreciated - prognosis remains grim secondary to nature of underlying malignancy DVT prophylaxis at all times with ALPS GM hold d/c planning monitor cbc as outpatient within few days of d/c to be reported to his primary oncologist.
--- NOTE | 2016-05-04 15:04 | ULTRASOUND REPORT ---
EXAMINATION: US TRIPLEX LOWER EXTREMITY, RIGHT CLINICAL INFORMATION: Unilateral right leg swelling and warmth. Evaluate for DVT. COMPARISON: Contralateral left lower extremity venous Doppler ultrasound performed at the same time. TECHNIQUE: Color-flow triplex imaging with spectral analysis and compression Doppler were performed on the right lower extremity. FINDINGS: Complete thrombosis of the right common femoral vein, greater saphenous vein takeoff, femoral vein, popliteal vein and calf veins is seen with no color flow or compressibility of these vessels demonstrated. Edema is noted. There is no Coulter's cyst. IMPRESSION: Positive deep venous thrombosis involving the right lower extremity from the common femoral vein down to the calf veins. This critical result was discussed with Dr. Tiera Paniagua 05/04/2016, 2:25 PM and it was ascertained that the content and urgency of this report was understood at the time of direct communication.
[2016-05-04 16:00] VITALS: BP 122/78
--- NOTE | 2016-05-04 16:07 | Event Note ---
Event Note Event Note: Patient complained of right knee pain this afternoon. He was seen and examined at bedside. He was noted to have 3+ pitting edema of bilateral lower extremities , R >> L, which also felt slightly warm to touch but were nontender. There was no obvious redness or swelling at the right knee, although patient complained of knee pain. Patient's prior to admission gout medications, allopurinol and colchicine, which had been initially held due to STEFAN, had been resumed last night. Patient was started on ibuprofen 800 mg PO TID PRN for the gout attack. Doppler ultrasound of bilateral legs was performed which showed DVT of bilateral legs extending from the common femoral vein down to the calf veins. [place] Nurse -oncologist Dr. Cosme was contacted who suggested that patient would not be a candidate for anticoagulation given his thrombocytopenia and history of intracranial bleed. Patient's primary oncologist Dr. Knott was made aware and was in agreement that patient is not a good candidate for anticoagulation. Vascular surgery was consulted who felt that patient is not a good candidate for surgical intervention given his multiple co-morbidities and the contraindication to anticoagulation. Patient's who was at bedside was given a detailed update.
--- NOTE | 2016-05-04 18:13 | Cons- Vascular Surgery ---
General Information and HPI Consulting Request Date of Consult: 05/04/16 Requested By: VERITO LAFLEUR MD Reason for Consult: DVT Source of Information: family, old records History of Present Illness: 60-year-old male with right leg DVT. Patient has a history of DVT, status post IVC filter placed about a year ago in [place]. Patient has glioblastoma multiforme, on chemotherapy, history of intracranial bleed. Patient has an IVC filter, due to inability to anticoagulate. For a few days, patient has had right leg swelling, and ultrasound showing DVT in the right common femoral vein. Patient did not be anticoagulated. Past surgical history evaluate for possible intervention or surgery. Allergies/Medications Allergies: Coded Allergies: No Known Allergies (04/28/16) Home Med List: Allopurinol 300 MG TABLET 1 TAB PO DAILY gout (Reported) Reason to Stop at ADM:STEFAN Colchicine 0.6 MG TABLET 1 TAB PO DAILY GOUT (Reported) Reason to Stop at ADM:STEFAN Dexamethasone 2 MG TABLET 2 MG PO Q8 PRN BRAIN TUMOR (Reported) Reason to Stop at ADM:CHANGED TO IV Dronabinol (Marinol) 2.5 MG CAPSULE 1 CAP PO BID N/V (Reported) Reason to Stop at ADM: ON ZOFRAN Folic Acid 1 MG TABLET 1 TAB PO DAILY SUPPLEMENT (Reported) Gabapentin (Neurontin) 300 MG CAPSULE 1 CAP PO TID NEUROGENIC PAIN (Reported) Glimepiride (Amaryl) 2 MG TABLET 2 MG PO DAILY DIABETES (Reported) Reason to Stop at ADM:ISS Lacosamide (Vimpat) 200 MG TABLET 1 TAB PO BID SEIZURES (Reported) Reason to Stop at ADM:PO TO IV Levetiracetam (Keppra) 500 MG TABLET 1 TAB PO BID SEIZURE (Reported) Reason to Stop at ADM:PO TO IV Metoprolol Tartrate (Lopressor) 50 MG TABLET 25 MG PO BID BP (Reported) Reason to Stop at ADM:SHOCK Nut.tx.glucose Intolerance,Soy (Glucerna) 1 EACH BAR 1 BAR PO BID SUPPLEMENT (Reported) Pantoprazole Sodium (Protonix) 40 MG TABLET.DR 1 TAB PO DAILY GI (Reported) Phenytoin (Dilantin) 100 MG CAPSULE 2 CAP PO TID SEIZURE (Reported) Phenytoin (Dilantin) 100 MG CAPSULE 300 MG PO BEDTIME SEIZURES (Reported) Procarbazine Hydrochloride (Matulane) 50 MG CAPSULE 100 MG PO BEDTIME CANCER (Reported) Thiamine HCl 100 MG TABLET 1 TAB PO DAILY SUPPLEMENT (Reported) Current Medications: Current Medications Sig/Ness Start time Last Medication Dose Route Stop Time Status Admin Acetaminophen 650 MG Q6P PRN 04/29 1900 AC 05/04 PO 1725 Allopurinol 300 MG DAILY 05/03 1823 AC 05/04 PO 1100 Colchicine 600 MCG DAILY 05/03 1823 AC 05/04 PO 1059 Dexamethasone 2 MG Q8 04/29 2200 AC 05/04 PO 1420 Ibuprofen 800 MG TID PRN 05/04 1230 AC 05/04 PO 1420 Insulin Aspart 0 TIDAC 04/30 0800 AC 05/04 SC 1642 Lacosamide 200 MG BID 04/30 1000 AC 05/04 PO 1100 Levetiracetam 500 MG BID 04/29 2200 AC 05/04 PO 1059 Metoprolol Tartrate 25 MG BID 05/03 1103 AC 05/04 PO 1059 Omeprazole 40 MG DAILY AC 04/30 0700 AC 05/04 PO 0525 Phenytoin 200 MG DAILY 04/30 1000 AC 05/04 PO 1059 Phenytoin 300 MG AT BEDTIME 04/29 2200 AC 05/03 PO 2133 Past History Medical History Blood Transfusion Hx: Yes Type of Reaction: none Neurological: seizure, glioblastoma multiforme EENT: NONE Cardiovascular: hypertension Respiratory: NONE Gastrointestinal: BLEEDING ULCER 2004 Hepatic: NONE Renal: NONE Musculoskeletal: gout Psychiatric: NONE Endocrine: diabetes Blood Disorders: NONE IVC FILTER 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 [facility] Who Do You Live With? spouse Services at Home: [facility] Primary Language: Malay Smoking Status: Former Smoker ETOH Use: occasional use Illicit Drug Use: denies illicit drug use Living Will? 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 Ambulation: non-ambulatory IADLs Needs Assist: shopping, housework, finances, food prep, telephone, transportation, medication admin. Employment History Employment: Unemployed Review of Systems Review of Systems Constitutional: Reports: weakness. Denies: chills, fever. Cardiovascular: Denies: chest pain. Respiratory: Denies: short of breath. GI: Denies: abdominal pain. Musculoskeletal: Reports: joint pain. Skin: Denies: lesions. Neurological/Psychological: Reports: weakness. Hematologic/Endocrine: Denies: bleeding. Exam & Diagnostic Data Vital Signs and I&O Vital Signs Date Time Temp Pulse Resp B/P Pulse O2 O2 Flow FiO2 Ox Delivery Rate 05/04 1600 98.1 120 20 122/78 95 Room Air 05/04 1205 Room Air Room Air 05/04 1011 Room Air Room Air 05/04 0800 97.9 110 24 132/78 96 Room Air 05/04 0027 98.7 100 20 124/80 95 Room Air Intake & Output 05/04 1600 / 0800 03/ 0000 / 1600 05/03 0800 05/03 0000 Intake Total 300 180 480 100 120 Output Total 425 250 325 400 350 Balance -125 -70 155 -300 -230 Intake, IV 0 0 Intake, Oral 300 180 480 100 120 Number 0 1 1 0 Bowel Movements Output, Urine 425 250 325 400 350 Physical Exam General Appearance: well developed/nourished, no apparent distress Head: normal appearance Eyes: Bilateral: normal appearance. Neck: normal inspection Respiratory: no respiratory distress Cardiovascular: regular rate/rhythm Peripheral Pulses: 3+ dorsalis pedis (R), 3+ dorsalis pedis (L) Gastrointestinal: soft, non-tender Extremities: swelling (3+ right leg edema, 1-2+ left ) Assessment/Plan Assessment/Plan Right leg DVT, the face of history DVT, status post IVC filter. Patient has glioblastom multiforme with history of intracranial bleed, and chemotherapy , with reportedly poor prognosis. He cannot be anticoagulated. Unfortunately, if patient cannot be anticoagulated, venous intervention cannot be successfully completed. Any venous intervention whether a thrombectomy or thrombolysis will require high doses of anticoagulation during procedure, as well as continued anticoagulation post procedure. In addition, intervention itself has higher risk for bleeding. Patient is IVC filter, and thus pulmonary embolisms effectively preventable. Recommendations at this time is leg elevation, compression stockings to lower extremities and observation. Discussed plan with patient and patient's who is at bedside. Problem List: 1. Glioblastoma multiforme 2. Deep vein thrombosis (DVT) of right lower extremity Consult Acknowledgment - Thank you for your consult request.
--- NOTE | 2016-05-04 18:58 | ULTRASOUND REPORT ---
EXAMINATION: US TRIPLEX LOWER EXTREMITY, LEFT CLINICAL INFORMATION: Extending and warmth. COMPARISON: None TECHNIQUE: Color-flow triplex imaging with spectral analysis and compression Doppler were performed on the left lower extremity. FINDINGS: Occlusive thrombosis of the left common femoral vein, greater saphenous vein takeoff, femoral vein, popliteal vein and calf veins is seen. Noncompressibility and no color flow are noted within these vessels. Soft tissue edema is seen. There is no Coulter's cyst. IMPRESSION: Extensive deep venous thrombosis involving the left lower extremity deep venous system from the common femoral vein down to the calf veins. Please also refer to separate dictation of the right lower extremity venous Doppler ultrasound, which is also positive for deep venous thrombosis. This critical result was discussed with Dr. Tiera Paniagua 05/04/2016, 2:25 PM and it was ascertained that the content and urgency of this report was understood at the time of direct communication.
[2016-05-05] VITALS: BP 102/60
[2016-05-05 05:24] LABS: ABSOLUTE BASOPHIL COUNT 0 /CUMM (0.0-0.2); ABSOLUTE EOSINOPHIL COUNT 0.2 /CUMM (0.0-0.7); ABSOLUTE LYMPH COUNT 0.8 /CUMM (1.2-3.4); ABSOLUTE MONOCYTE COUNT 0.2 /CUMM (0.10-0.60); BASOPHIL % 0.2 % (0.0-2.0); EOSINOPHIL % 2.2 % (0-5); GRANULOCYTE % 84.4 % (42.2-75.2); HEMATOCRIT 24.4 % (42-52); MEAN CORPUSCULAR HGB 28.9 PG (27.0-31.0); MEAN CORPUSCULAR HGB CONC 33.1 G/DL (33.0-37.0); MEAN CORPUSCULAR VOLUME 87.4 FL (80.0-94.0); MEAN PLATELET VOLUME 8.6 FL (7.4-10.4); PLATELET COUNT 103 /CUMM (130-400); RBC DISTRIBUTION WIDTH 20.5 % (11.5-14.5); RED BLOOD CELL CT 2.79 /CUMM (4.70-6.10); WHITE BLOOD CELL COUNT 7.1 /CUMM (4.8-10.8)
--- NOTE | 2016-05-05 07:06 | PN- Housestaff ---
See Addendum Subjective Follow-up For: Bilateral LE DVT Glioblastoma multiforme Subjective: Patient complained of right knee pain yesterday. He was noted to have 3+ pitting edema of bilateral lower extremities, R >> L. There was no obvious redness or swelling at the right knee. Doppler ultrasound was performed which showed DVT of bilateral legs. Dr. Cosme was contacted who suggested that patient would not be a candidate for anticoagulation given history of intracranial bleed. Patient's primary oncologist Dr. Knott was in agreement. Vascular surgery was consulted who thought that patient is not a good candidate for surgical intervention which would require high doses of anticoagulation that are contraindicated in this case. Patient's was updated who felt that patient would benefit from hospice evaluation. Patient was seen and examined this morning. He is resting comfortably. He denies pain in his legs. He offers no complaints. Review of Systems Constitutional: Reports: no symptoms. Objective Last 24 Hrs of Vital Signs/I&O Vital Signs Date Time Temp Pulse Resp B/P Pulse O2 O2 Flow FiO2 Ox Delivery Rate 05/06 799 98.4 108 24 138/82 95 Room Air 05/05 0000 94 Room Air 05/05 0000 97.4 97 20 102/60 94 Room Air 05/04 2132 86 20 116/78 05/04 1600 98.1 120 20 122/78 95 Room Air 05/04 1205 Room Air Room Air 05/04 1011 Room Air Room Air Intake & Output 05/05 1600 05/05 0800 05/05 0000 Intake Total 150 120 Output Total 285 150 Balance -135 -30 Intake, Oral 150 120 Number 2 Bowel Movements Output, Urine 285 150 Patient 89.103 kg Weight Physical Exam General Appearance: Alert, No Acute Distress HEENT: Atraumatic, Mucous Membr. moist/pink Neck: Supple Cardiovascular: Normal S1, Normal S2, Tachycardic Lungs: Clear to Auscultation Abdomen: Soft, No Tenderness, Positive Bowel Sounds Neurological: Left-Sided Hemiparesis Extremities: No Clubbing, No Cyanosis, Bilateral Lower Extremities with 3+ Edema (R >> L), Right Lower Leg with Mild Erythema Current Medications: Current Medications Sig/Ness Start time Last Medication Dose Route Stop Time Status Admin Acetaminophen 650 MG .STK-MED ONE 05/04 1706 DC PO 05/04 1707 Acetaminophen 650 MG .STK-MED ONE 05/04 1201 DC PO 05/04 1202 Acetaminophen 650 MG Q6P PRN 04/29 1900 AC 05/04 PO 1725 Allopurinol 300 MG DAILY 05/03 1823 AC 05/04 PO 1100 Colchicine 600 MCG DAILY 05/03 1823 AC 05/04 PO 1059 Dexamethasone 2 MG Q8 04/29 2200 AC 05/05 PO 0623 Heparin Sodium 500 UNIT .STK-MED ONE 05/04 1042 DC (Porcine) IV 05/04 1043 Ibuprofen 800 MG TID PRN 05/04 1230 AC 05/04 PO 1420 Insulin Aspart 0 TIDAC 04/30 0800 AC 05/04 SC 1642 Lacosamide 200 MG BID 04/30 1000 AC 05/04 PO 2132 Levetiracetam 500 MG BID 04/29 2200 AC 05/04 PO 2133 Metoprolol Tartrate 25 MG BID 05/03 1103 AC 05/04 PO 2132 Omeprazole 40 MG DAILY AC 04/30 0700 AC 05/05 PO 0623 Phenytoin 200 MG DAILY 04/30 1000 AC 05/04 PO 1059 Phenytoin 300 MG AT BEDTIME 04/29 2200 AC 05/04 PO 2132 Last 24 Hrs of Lab/Noel Results Last 24 Hrs of Labs/Mics: Laboratory Tests 05/05/16 0400: CBC w Diff NO MAN DIFF REQ, RBC 2.79 L, MCV 87.4, MCH 28.9, RDW 20.5 H, MPV 8.6, Gran % 84.4 H, Lymphocytes % 10.7 L, Monocytes % 2.5, Eosinophils % 2.2, Basophils % 0.2, Absolute Granulocytes 6.0, Absolute Lymphocytes 0.8 L, Absolute Monocytes 0.2, Absolute Eosinophils 0.2, Absolute Basophils 0, PUBS MCHC 33.1 Orders Radiology Findings: BLE DOPPLER US: Positive deep venous thrombosis involving the right lower extremity from the common femoral vein down to the calf veins. Extensive deep venous thrombosis involving the left lower extremity deep venous system from the common femoral vein down to the calf veins. 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 #Bilateral LE DVT: Doppler US with BLE DVT extending from the common femoral vein down to the calf veins. Anticoagulation is contraindicated given his history of incranial bleed. Vascular intervention cannot be successfully completed as it would require high doses of anticoagulation. * No anticoagulation or vascular intervention. * Hospice evaluation requested per patient's wishes. #Thrombocytopenia: Platelet count continues to improve, 103 today. Most likely secondary to septic shock. No obvious bleeding. * Continue to monitor platelet count daily. * Check CBC within a few days after discharge and forward results to primary oncologist Dr. Knott. #Glioblastoma multiforme: Complicated by seizures and intracranial bleed in 2015 requiring clot evacuation. S/p 1 cycle of procarbazine/lomustine/vincristine. Poor overall prognosis. * Continue prior to admission antiseizure medications phenytoin 200 mg PO daily and 300 mg PO QHS, Keppra 500 mg PO BID and Vimpat 100 mg PO Q12H. * Continue dexamethasone 2 mg PO Q8H. #Septic shock: Resolving. Of unclear source with negative cultures and imaging, but potential etiologies include UTI given pyuria and indwelling Lara, aspiration pneumonia given altered mental status and respiratory distress on admission or an intraabdominal process. S/p 3 days of vancomycin and ceftazidime (04/28-04/30) followed by 3 days of ceftriaxone (05/01-05/03). * Monitor off antibiotics. #Gout: * Continue prior to admission colchicine 600 mg PO daily and allopurinol 300 mg PO daily. #Persistent sinus tachycardia with ventricular ectopy: Likely multifactorial secondary to acute issues including sepsis and anemia. ECHO with normal LVEF. * Resume prior to admission metoprolol 25 mg PO BID. * No further cardiac workup indicated at this time per cardiology. #T2DM: Blood sugars well-controlled. * Hold oral hypoglycemic agents while inpatient. * Accu-checks and Novolog TIDAC/QHS sliding scale. Diet: Consistent Carbohydrate 2 DVT PPx: ALPs CODE: DNR/DNI Problem List: 1. Glioblastoma multiforme 2. Deep vein thrombosis (DVT) of both lower extremities 3. Gout 4. T2DM (type 2 diabetes mellitus) 5. Septic shock 6. Multisystem organ failure 7. Thrombocytopenia Pain Ratin Pain Location: N/A Pain Goal: Remain pain free Pain Plan: Tylenol 650 mg PO Q6H PRN Tomorrow's Labs & Rationales: CBC to monitor platelet count in the setting of thrombocytopenia Discharge Plan Discharge Disposition: awaiting STR/NH placement Stable for Discharge? Yes
[2016-05-05 08:00] VITALS: BP 138/82
--- NOTE | 2016-05-05 08:44 | PN- Oncology ---
Subjective Subjective: He denies any symptoms this morninig. Review of Systems Constitutional: Denies: chills, fever. Cardiovascular: Denies: chest pain. Respiratory: Denies: short of breath. Gastrointestinal: Denies: abdominal pain. Musculoskeletal: Reports: back pain. All Other Systems: Reviewed and Negative Objective Vital Signs and I&Os Vital Signs Date Time Temp Pulse Resp B/P Pulse O2 O2 Flow FiO2 Ox Delivery Rate 05/05 08 98.4 108 24 138/82 95 Room Air 05/05 0000 94 Room Air 05/05 0000 97.4 97 20 102/60 94 Room Air 05/04 2132 86 20 116/78 05/04 1600 98.1 120 20 122/78 95 Room Air 05/04 1205 Room Air Room Air 05/04 1011 Room Air Room Air Intake & Output 05/05 1600 05/05 0800 05/05 0000 05/04 1600 05/04 0800 05/04 0000 Intake Total 150 120 300 180 Output Total 285 150 425 250 Balance -135 -30 -125 -70 Intake, IV 0 Intake, Oral 150 120 300 180 Number 2 0 Bowel Movements Output, Urine 285 150 425 250 Patient 89.103 kg Weight Physical Exam: General Appearance: awake, comfortable Respiratory: normal breath sounds, chest non-tender, clear anteriorly Cardiovascular: tachycardia Abdomen: normal bowel sounds, soft, non-tender Extremities: pedal edema, in restraints Neurologic/Psychiatric: awake, alert, oriented to self Current Medications: Current Medications Sig/Ness Start time Last Medication Dose Route Stop Time Status Admin Acetaminophen 650 MG .STK-MED ONE 05/04 1706 DC PO 05/04 1707 Acetaminophen 650 MG .STK-MED ONE 05/04 1201 DC PO 05/04 1202 Acetaminophen 650 MG Q6P PRN 04/29 1900 AC 05/04 PO 1725 Allopurinol 300 MG DAILY 05/03 1823 AC 05/04 PO 1100 Colchicine 600 MCG DAILY 05/03 1823 AC 05/04 PO 1059 Dexamethasone 2 MG Q8 04/29 2200 AC 05/05 PO 0623 Heparin Sodium 500 UNIT .STK-MED ONE 05/04 1042 DC (Porcine) IV 05/04 1043 Ibuprofen 800 MG TID PRN 05/04 1230 AC 05/04 PO 1420 Insulin Aspart 0 TIDAC 04/30 0800 AC 05/04 SC 1642 Lacosamide 200 MG BID 04/30 1000 AC 05/04 PO 213 Levetiracetam 500 MG BID 04/29 2199 AC 05/04 PO 213 Metoprolol Tartrate 25 MG BID 05/03 1103 AC 05/04 PO 213 Omeprazole 40 MG DAILY AC 04/30 0700 AC 05/05 PO 06 Phenytoin 200 MG DAILY 04/30 1000 AC 05/04 PO 1059 Phenytoin 300 MG AT BEDTIME 04/29 2199 AC 05/04 PO 2131 Results Last 24 Hours of Lab Results: Laboratory Tests 05/05 0400 Hematology CBC w Diff NO MAN DIFF REQ WBC (4.8 - 10.8 /CUMM) 7.1 RBC (4.70 - 6.10 /CUMM) 2.79 L Hgb (14.0 - 18.0 G/DL) 8.1 L Hct (42 - 52 %) 24.4 L MCV (80.0 - 94.0 FL) 87.4 MCH (27.0 - 31.0 PG) 28.9 RDW (11.5 - 14.5 %) 20.5 H Plt Count (130 - 400 /CUMM) 103 L MPV (7.4 - 10.4 FL) 8.6 Gran % (42.2 - 75.2 %) 84.4 H Lymphocytes % (20.5 - 51.1 %) 10.7 L Monocytes % (1.7 - 9.3 %) 2.5 Eosinophils % (0 - 5 %) 2.2 Basophils % (0.0 - 2.0 %) 0.2 Absolute Granulocytes (1.4 - 6.5 /CUMM) 6.0 Absolute Lymphocytes (1.2 - 3.4 /CUMM) 0.8 L Absolute Monocytes (0.10 - 0.60 /CUMM) 0.2 Absolute Eosinophils (0.0 - 0.7 /CUMM) 0.2 Absolute Basophils (0.0 - 0.2 /CUMM) 0 PUBS MCHC (33.0 - 37.0 G/DL) 33.1 Recent Imaging Studies: Venous Doppler 05/04/2016: Extensive deep venous thrombosis involving the left lower extremity deep venous system from the common femoral vein down to the calf veins. Positive deep venous thrombosis involving the right lower extremity from the common femoral vein down to the calf veins. Assessment/Plan Assessment/Recommendations: Mr. Carrera is a 60 y/o man with h/o progressive glioma, now likely transformed to GBM, status post cycle 1 Procarbazine/Lomustine/Vincristine chemotherapy, admit for [facility] with septic shock. Clinical condition continues to improve. Platelet count continues to improve. He was noted to have bilateral DVT yesterday. He has a history of IVC filter and incranial hemorrhage. He would not be a candidate for anticoagulation. DVT is likely chronic to subacute. Conservative management for the DVT is planned. GBM is currently being treated by Dr. Ruel Knott. He will need to follow up with Dr. Knott for further discussion of options. Recommendation: 1. Monitor CBC 2. Conservative management of VTE given high risk of bleeding 3. Follow up as outpatient for further discussion of options Please call [phone] with any urgent needs or his primary oncologist at for any patient specific issue. Problem List: 1. Thrombocytopenia 2. Glioblastoma multiforme 3. Septic shock 4. VTE (venous thromboembolism)
--- NOTE | 2016-05-05 09:17 | PN- Pulmonary ---
Subjective HPI/Critical Care Issues: pt seen and examined gen med hold family meeting held hospice evaluation today no n/v/d/c no new events no pain Objective Current Medications: Current Medications Sig/Ness Start time Last Medication Dose Route Stop Time Status Admin Acetaminophen 650 MG .STK-MED ONE 05/04 1706 DC PO 05/04 1707 Acetaminophen 650 MG .STK-MED ONE 05/04 1201 DC PO 05/04 1202 Acetaminophen 650 MG Q6P PRN 04/29 1900 AC 05/04 PO 1725 Allopurinol 300 MG DAILY 05/03 1823 AC 05/04 PO 1100 Colchicine 600 MCG DAILY 05/03 1823 AC 05/04 PO 1059 Dexamethasone 2 MG Q8 04/29 2200 AC 05/05 PO 0623 Heparin Sodium 500 UNIT .STK-MED ONE 05/04 1042 DC (Porcine) IV 05/04 1043 Ibuprofen 800 MG TID PRN 05/04 1230 AC 05/04 PO 1420 Insulin Aspart 0 TIDAC 04/30 0800 AC 05/04 SC 1642 Lacosamide 200 MG BID 04/30 1000 AC 05/04 PO 2132 Levetiracetam 500 MG BID 04/29 2200 AC 05/04 PO 2133 Metoprolol Tartrate 25 MG BID 05/03 1103 AC 05/04 PO 2132 Omeprazole 40 MG DAILY AC 04/30 0700 AC 05/05 PO 0623 Phenytoin 200 MG DAILY 04/30 1000 AC 05/04 PO 1059 Phenytoin 300 MG AT BEDTIME 04/29 2200 AC 05/04 PO 2132 Vital Signs & I&O Last 24 Hrs of Vitals and I&O: Vital Signs Date Time Temp Pulse Resp B/P Pulse O2 O2 Flow FiO2 Ox Delivery Rate 05/05 08 98.4 108 24 138/82 95 Room Air 05/05 0000 94 Room Air 05/05 0000 97.4 97 20 102/60 94 Room Air 05/04 2132 86 20 116/78 05/04 1600 98.1 120 20 122/78 95 Room Air 05/04 1205 Room Air Room Air 05/04 1011 Room Air Room Air Intake & Output 05/05 1600 05/05 0800 03 0000 Intake Total 150 120 Output Total 285 150 Balance -135 -30 Intake, Oral 150 120 Number 2 Bowel Movements Output, Urine 285 150 Patient 196 lb Weight Exam Other Physical Findings: gen awake and comfortable heent no acute findings cvs s1, s2 lungs ctab abd soft bs+ ext without edema neuro chronic left sided weakness Results Last 24 Hrs of Lab Results: Laboratory Tests 05/05/16 0400: CBC w Diff NO MAN DIFF REQ, RBC 2.79 L, MCV 87.4, MCH 28.9, RDW 20.5 H, MPV 8.6, Gran % 84.4 H, Lymphocytes % 10.7 L, Monocytes % 2.5, Eosinophils % 2.2, Basophils % 0.2, Absolute Granulocytes 6.0, Absolute Lymphocytes 0.8 L, Absolute Monocytes 0.2, Absolute Eosinophils 0.2, Absolute Basophils 0, PUBS MCHC 33.1 Impression/Plan Impression/Plan Impression/Plan: Impression 60 year old man - glioma likely progressed to GBM - resolved erika - ?sepsis secondary to ?uti - bilateral dvt's - has ivc filter, will not and cannot a/c secondary to brain mass Plan - off abx - hem/onc appreciated - prognosis remains grim secondary to nature of underlying malignancy - hospice evaluation - family in agreement DVT prophylaxis at all times with ALPS GM hold d/c planning
[2016-05-05 16:00] VITALS: BP 118/64
[2016-05-06] VITALS: BP 130/70
[2016-05-06 05:07] LABS: ABSOLUTE BASOPHIL COUNT 0 /CUMM (0.0-0.2); ABSOLUTE EOSINOPHIL COUNT 0.1 /CUMM (0.0-0.7); ABSOLUTE GRANULOCYTE CT 4.1 /CUMM (1.4-6.5); ABSOLUTE LYMPH COUNT 0.8 /CUMM (1.2-3.4); ABSOLUTE MONOCYTE COUNT 0.2 /CUMM (0.10-0.60); BASOPHIL % 0.2 % (0.0-2.0); EOSINOPHIL % 2.3 % (0-5); GRANULOCYTE % 79.5 % (42.2-75.2); MEAN CORPUSCULAR HGB 28.5 PG (27.0-31.0); MEAN CORPUSCULAR VOLUME 86.4 FL (80.0-94.0); MEAN PLATELET VOLUME 7.6 FL (7.4-10.4); PLATELET COUNT 104 /CUMM (130-400); RBC DISTRIBUTION WIDTH 20.9 % (11.5-14.5); RED BLOOD CELL CT 2.66 /CUMM (4.70-6.10); WHITE BLOOD CELL COUNT 5.2 /CUMM (4.8-10.8)
[2016-05-06 08:00] VITALS: BP 128/82
--- NOTE | 2016-05-06 08:12 | PN- Housestaff ---
MICHELET STEVE,ALYSSA 05/06/16 0811: Subjective Follow-up For: Bilateral LE DVT Glioblastoma multiforme Complaints: no complaints Subjective: I followed up and examined the patient today. He is resting comfortably on the bed, with legs elevated over the pillows. Right foot is slightly warmer than the left foot, there is more redness over his right leg. He does not appear to be in any distress, and does not have any complaints. No events overnight. Review of Systems Constitutional: Reports: no symptoms. Cardiovascular: Reports: no symptoms. Respiratory: Reports: no symptoms. Gastrointestinal: Reports: no symptoms. Genitourinary: Reports: no symptoms. Musculoskeletal: Reports: see HPI. Skin: Reports: see HPI. Objective Last 24 Hrs of Vital Signs/I&O Vital Signs Date Time Temp Pulse Resp B/P Pulse O2 O2 Flow FiO2 Ox Delivery Rate 05/06 1001 97.0 82 18 128/82 05/06 0800 97.0 82 18 128/82 97 Room Air Room Air 05/06 0000 97 Room Air Room Air 05/06 0000 97.8 80 18 130/70 97 Room Air Room Air 05/05 2203 97.8 80 18 130/70 05/05 1600 98.2 98 18 118/64 94 Room Air Intake & Output 05/06 1600 05/06 0800 05/06 0000 Intake Total 120 120 Output Total 200 200 Balance -80 -80 Intake, Oral 120 120 Number 0 0 Bowel Movements Output, Urine 200 200 Physical Exam General Appearance: Alert, Oriented X3, Cooperative, No Acute Distress Other Physical Findings: HEENT: Atraumatic, Mucous Membr. moist/pink Neck: Supple Cardiovascular: Normal S1, Normal S2, Tachycardic Lungs: Clear to Auscultation Abdomen: Soft, No Tenderness, Positive Bowel Sounds Neurological: Left-Sided Hemiparesis Extremities: No Clubbing, No Cyanosis, Bilateral Lower Extremities with 3+ Edema (R > L), Right Lower Leg with Mild Erythema still present, R foot warmer than L foot Current Medications: Current Medications Sig/Ness Start time Last Medication Dose Route Stop Time Status Admin Acetaminophen 650 MG Q6P PRN 04/29 1900 AC 05/04 PO 1725 Allopurinol 300 MG DAILY 05/03 1823 AC 05/06 PO 1000 Colchicine 600 MCG DAILY 05/03 1823 AC 05/06 PO 1001 Dexamethasone 2 MG Q8 04/29 2200 AC 05/06 PO 0632 Insulin Aspart 0 TIDAC 04/30 0800 AC 05/05 SC 1700 Lacosamide 200 MG BID 04/30 1000 AC 05/06 PO 1000 Levetiracetam 500 MG BID 04/29 2200 AC 05/06 PO 1001 Metoprolol Tartrate 25 MG BID 05/03 1103 AC 05/06 PO 1001 Morphine Sulfate 2 MG ONCE ONE 05/05 1814 DC 05/05 IV 05/05 181 1815 Omeprazole 40 MG DAILY AC 04/30 0700 AC 05/06 PO 0631 Phenytoin 200 MG DAILY 04/30 1000 AC 05/06 PO 1001 Phenytoin 300 MG AT BEDTIME 04/29 2199 AC 05/05 PO 2203 Last 24 Hrs of Lab/Noel Results Last 24 Hrs of Labs/Mics: Laboratory Tests 05/06/16 0453: CBC w Diff NO MAN DIFF REQ, RBC 2.66 L, MCV 86.4, MCH 28.5, RDW 20.9 H, MPV 7.6, Gran % 79.5 H, Lymphocytes % 15.0 L, Monocytes % 3.0, Eosinophils % 2.3, Basophils % 0.2, Absolute Granulocytes 4.1, Absolute Lymphocytes 0.8 L, Absolute Monocytes 0.2, Absolute Eosinophils 0.1, Absolute Basophils 0, PUBS MCHC 33.0 Assessment/Plan Assessment: 60 y/o M with PMHx of progressive glioma transitioning to glioblastoma multiforme s/p 1 cycle of chemotherapy and T2DM who is admitted for septic shock with multisystem organ failure of unclear source, and B/L DVT. #Bilateral LE DVT: Doppler US with BLE DVT extending from the common femoral vein down to the calf veins. Anticoagulation is contraindicated given his history of incranial bleed. Vascular intervention cannot be successfully completed as it would require high doses of anticoagulation. * No anticoagulation or vascular intervention. * Hospice evaluation was done yesterday per patient's 's request. Patient was not converted to hospice though. #Thrombocytopenia: Platelet count continues to improve, 104 today. Most likely secondary to septic shock. No obvious bleeding. * Continue to monitor platelet count daily. * Check CBC within a few days after discharge and forward results to primary oncologist Dr. Knott. #Glioblastoma multiforme: Complicated by seizures and intracranial bleed in 2014 requiring clot evacuation. S/p 1 cycle of procarbazine/lomustine/vincristine. Poor overall prognosis. * Continue prior to admission antiseizure medications phenytoin 200 mg PO daily and 300 mg PO QHS, Keppra 500 mg PO BID and Vimpat 100 mg PO Q12H. * Continue dexamethasone 2 mg PO Q8H. #Septic shock: Resolving. Of unclear source with negative cultures and imaging, but potential etiologies include UTI given pyuria and indwelling Lara, aspiration pneumonia given altered mental status and respiratory distress on admission or an intraabdominal process. S/p vancomycin and ceftazidime (04/28-04/30) followed by 3 days of ceftriaxone (05/01-05/03). * Monitor off antibiotics. #Gout: * Continue prior to admission colchicine 600 mg PO daily and allopurinol 300 mg PO daily. #Persistent sinus tachycardia with ventricular ectopy: Likely multifactorial secondary to acute issues including sepsis and anemia. ECHO with normal LVEF. * Resume prior to admission metoprolol 25 mg PO BID. * No further cardiac workup indicated at this time per cardiology. #T2DM: Blood sugars well-controlled. * Hold oral hypoglycemic agents while inpatient. * Accu-checks and Novolog TIDAC/QHS sliding scale. Diet: Consistent Carbohydrate 2 DVT PPx: ALPs CODE: DNR/DNI Problem List: 1. Deep vein thrombosis (DVT) of both lower extremities 2. Glioblastoma multiforme Pain Ratin Pain Location: when present, b/l legs Pain Goal: Pain 4 or less Pain Plan: tylenol, and prn morphine Tomorrow's Labs & Rationales: CBC, BEP SILVIA WILSON MD 05/06/16 1711: Attending MD Review Statement Attending Statement Attending MD Statement: examined this patient, discuss w/resident/PA/COMMUNITY PLANNING TECHNICIAN, agreed w/resident/PA/COMMUNITY PLANNING TECHNICIAN, reviewed EMR data (avail) Attending Assessment/Plan: Labs reviewed, exam benign, agree with resident plan. Will continue current management
[2016-05-06 16:00] VITALS: BP 122/78
[2016-05-07] VITALS: BP 128/60
[2016-05-07 05:28] LABS: ABSOLUTE BASOPHIL COUNT 0 /CUMM (0.0-0.2); ABSOLUTE EOSINOPHIL COUNT 0.1 /CUMM (0.0-0.7); ABSOLUTE GRANULOCYTE CT 3.4 /CUMM (1.4-6.5); ABSOLUTE LYMPH COUNT 0.6 /CUMM (1.2-3.4); ABSOLUTE MONOCYTE COUNT 0.1 /CUMM (0.10-0.60); BASOPHIL % 0.3 % (0.0-2.0); EOSINOPHIL % 1.4 % (0-5); GRANULOCYTE % 81.9 % (42.2-75.2); HEMATOCRIT 21.9 % (42-52); MEAN CORPUSCULAR HGB 28.8 PG (27.0-31.0); MEAN CORPUSCULAR HGB CONC 33.6 G/DL (33.0-37.0); MEAN CORPUSCULAR VOLUME 85.8 FL (80.0-94.0); MEAN PLATELET VOLUME 7.6 FL (7.4-10.4); PLATELET COUNT 109 /CUMM (130-400); RBC DISTRIBUTION WIDTH 20.8 % (11.5-14.5); RED BLOOD CELL CT 2.55 /CUMM (4.70-6.10); WHITE BLOOD CELL COUNT 4.2 /CUMM (4.8-10.8)
[2016-05-07 08:00] VITALS: BP 112/72
--- NOTE | 2016-05-07 08:14 | PN- Housestaff ---
See Addendum Subjective Follow-up For: Bilateral lower extremity DVT Glioblastoma multiforme Subjective: No acute events overnight. Patient seen and examined this morning. He is lethargic but arousable by vigorous physical stimuli. Review of Systems Constitutional: Reports: see HPI. Objective Last 24 Hrs of Vital Signs/I&O Vital Signs Date Time Temp Pulse Resp B/P Pulse O2 O2 Flow FiO2 Ox Delivery Rate 05/07 0925 99.2 98 20 112/72 05/07 0800 99.2 98 20 112/72 93 Room Air 05/07 0000 99 Room Air 05/07 0000 97.0 102 22 128/60 99 Room Air 05/06 2216 98.2 68 22 126/58 05/06 1600 94 Room Air Room Air 05/06 1600 97.3 102 18 122/78 94 Room Air Room Air Intake & Output 05/07 1600 05/07 0800 05/07 0000 Intake Total 240 150 Output Total 250 550 Balance -10 -400 Intake, Oral 240 150 Number 2 Bowel Movements Output, Stool 300 Output, Urine 250 250 Physical Exam General Appearance: Lethargic, Arousable by Vigorous Physical Stimuli HEENT: Atraumatic, Mucous Membr. moist/pink Cardiovascular: Regular Rate, Normal S1, Normal S2 Lungs: Clear to Auscultation Abdomen: Soft, No Tenderness, Positive Bowel Sounds Extremities: Bilateral Lower Extremities with 3+ Edema (R >> L), Right Leg Warm to Touch and with Mild Erythema Current Medications: Current Medications Sig/Ness Start time Last Medication Dose Route Stop Time Status Admin Acetaminophen 650 MG Q6P PRN 04/29 1900 AC 05/04 PO 1725 Allopurinol 300 MG DAILY 05/03 1823 AC 05/06 PO 1000 Colchicine 600 MCG DAILY 05/03 1823 AC 05/06 PO 1001 Dexamethasone 2 MG Q8 04/29 2200 AC 05/07 PO 0615 Insulin Aspart 0 TIDAC 04/30 0800 AC 05/05 SC 1700 Lacosamide 200 MG BID 04/30 1000 AC 05/06 PO 2216 Levetiracetam 500 MG BID 04/29 2200 AC 05/06 PO 2213 Magnesium Sulfate 1 GM ONCE ONE 05/07 1200 AC Dextrose/Water 100 ML IV 05/07 1359 Magnesium Sulfate 1 GM ONCE ONE 05/07 1000 AC Dextrose/Water 100 ML IV 05/07 1159 Metoprolol Tartrate 25 MG BID 05/03 1103 AC 05/06 PO 2216 Omeprazole 40 MG DAILY AC 04/30 0700 AC 05/07 PO 0616 Phenytoin 200 MG DAILY 04/30 1000 AC 05/06 PO 1001 Phenytoin 300 MG AT BEDTIME 04/29 2200 AC 05/06 PO 2213 Potassium Chloride 10 MEQ Q1H 05/07 1000 AC IV 05/07 1201 Potassium Chloride 60 MEQ ONCE ONE 05/07 0830 DC PO 05/07 0831 Last 24 Hrs of Lab/Noel Results Last 24 Hrs of Labs/Mics: Laboratory Tests 05/07/16 0415: Anion Gap 9, Estimated GFR > 60, BUN/Creatinine Ratio 23.3, Magnesium 1.6, CBC w Diff NO MAN DIFF REQ, RBC 2.55 L, MCV 85.8, MCH 28.8, RDW 20.8 H, MPV 7.6, Gran % 81.9 H, Lymphocytes % 13.2 L, Monocytes % 3.2, Eosinophils % 1.4, Basophils % 0.3, Absolute Granulocytes 3.4, Absolute Lymphocytes 0.6 L, Absolute Monocytes 0.1 L, Absolute Eosinophils 0.1, Absolute Basophils 0, PUBS MCHC 33.6 Assessment/Plan Assessment: 60 y/o M with PMHx of progressive glioma transitioning to glioblastoma multiforme s/p 1 cycle of chemotherapy and T2DM who is admitted for septic shock with multisystem organ failure of unclear source, now with bilateral lower extremity DVT. #Anemia: H/H has been gradually dropping from 9.4/27.3 (04/28/16), 7.3/21.9 today. Guaiac negative (05/02/16). * Guaiac all stools. * Recheck CBC later this afternoon and transfuse if Hgb < 7. #Bilateral LE DVT: Doppler US with BLE DVT extending from the common femoral vein down to the calf veins. Anticoagulation is contraindicated given his history of intracranial bleed. Vascular intervention cannot be successfully completed as it would require high doses of anticoagulation. IVC filter already in place, placed approximately 1 year ago at [facility]. * No anticoagulation or vascular intervention given history of intracranial bleed. #Glioblastoma multiforme: Complicated by seizures and intracranial bleed in 2014 requiring clot evacuation. S/p 1 cycle of procarbazine/lomustine/vincristine. * Continue prior to admission antiseizure medications phenytoin 200 mg PO daily and 300 mg PO QHS, Keppra 500 mg PO BID and Vimpat 100 mg PO Q12H. * Continue dexamethasone 2 mg PO Q8H. * Continue family discussions regarding CODE status given extremely poor overall prognosis. #Thrombocytopenia: Platelet count continues to improve, 109 today. Most likely secondary to septic shock. No obvious bleeding. * Continue to monitor platelet count daily. * Check CBC within a few days after discharge and forward results to primary oncologist Dr. Knott. #Septic shock: Resolving. Of unclear source with negative cultures and imaging, but potential etiologies include UTI given pyuria and indwelling Lara, aspiration pneumonia given altered mental status and respiratory distress on admission or an intraabdominal process. S/p vancomycin and ceftazidime (04/28-04/30) followed by 3 days of ceftriaxone (05/01-05/03). * Continue to monitor off antibiotics. #Gout: * Continue prior to admission colchicine 600 mg PO daily and allopurinol 300 mg PO daily. #Persistent sinus tachycardia with ventricular ectopy: Likely multifactorial secondary to acute issues including sepsis and anemia. ECHO with normal LVEF. * Resume prior to admission metoprolol 25 mg PO BID. * No further cardiac workup indicated at this time per cardiology. #T2DM: Blood sugars well-controlled. * Hold oral hypoglycemic agents while inpatient. * Accu-checks and Novolog TIDAC/QHS sliding scale. Diet: Consistent Carbohydrate 2 Fluids: None Lytes: Replete to K > 4 and Mg > 2 DVT PPx: ALPs CODE: DNR/DNI Problem List: 1. Glioblastoma multiforme 2. T2DM (type 2 diabetes mellitus) 3. Gout 4. Deep vein thrombosis (DVT) of both lower extremities 5. Anemia 6. History of intracranial hemorrhage Pain Ratin Pain Location: N/A Pain Goal: Remain pain free Pain Plan: Tylenol 650 mg PO Q6H Tomorrow's Labs & Rationales: CBC to monitor H/H in the setting of anemia and platelet count in the setting of thrombocytopenia BMP to monitor lytes in the setting of hypokalemia and hypomagnesemia Discharge Plan Discharge Disposition: awaiting STR/NH placement
[2016-05-07 11:00] VITALS: BP 120/78
[2016-05-07 15:38] VITALS: BP 128/56
[2016-05-07 22:46] VITALS: BP 110/78
--- NOTE | 2016-05-08 05:56 | PN- Housestaff ---
MARY STEVE,OMAIRA 05/08/16 0556: Subjective Follow-up For: Septic shock bilateral DVT Subjective: I saw the patient today morning He is alert and oriented X1 to person, not to place and time. Reports significant pain in both the feet due to DVT. at bedside - spoke about goals of care, willing to try physical therapy if possible, trying for placement. As the patient appears much more with the situation, able to communicate way better than before, it appears that she is not willing to go for any comfort/hospice options for now. She also had issues with blood transfusion today. Review of Systems Constitutional: Reports: see HPI. EENTM: Reports: see HPI. Cardiovascular: Reports: see HPI. Respiratory: Reports: see HPI. Comments: ROS cannot be appreciated due to her condition Objective Last 24 Hrs of Vital Signs/I&O Vital Signs Date Time Temp Pulse Resp B/P Pulse O2 O2 Flow FiO2 Ox Delivery Rate 05/07 2246 98.1 101 18 110/78 96 Room Air 05/07 2025 101 110/78 05/07 1538 98.0 97 20 128/56 99 05/07 1204 120/78 05/07 1100 98.5 97 16 120/78 97 Room Air 05/07 0925 99.2 98 20 112/72 05/07 0800 99.2 98 20 112/72 93 Room Air Intake & Output 05/08 0800 05/08 0000 05/07 1600 Intake Total 260 1000 Output Total 301 150 Balance -41 850 Intake, IV 20 200 Intake, Oral 240 800 Number 1 Bowel Movements Output, Stool 1 Output, Urine 300 150 Physical Exam General Appearance: Alert Skin: No Rashes, No Breakdown HEENT: Atraumatic, PERRLA, EOMI Neck: Supple Cardiovascular: Normal S1, Normal S2, No Murmurs Lungs: Clear to Auscultation, Normal Air Movement Abdomen: Normal Bowel Sounds, Soft, No Tenderness Extremities: No Clubbing, No Cyanosis Current Medications: Current Medications Sig/Ness Start time Last Medication Dose Route Stop Time Status Admin Acetaminophen 650 MG Q6P PRN 04/29 1900 AC 05/04 PO 1725 Allopurinol 300 MG DAILY 05/03 1823 AC 05/07 PO 1319 Colchicine 600 MCG DAILY 05/03 1823 AC 05/07 PO 1204 Dexamethasone 2 MG Q8 04/29 2199 AC 05/07 PO 202 Insulin Aspart 0 TIDAC 04/30 0800 AC 05/05 SC 1700 Lacosamide 200 MG .STK-MED ONE 05/07 1313 DC PO 05/07 1314 Lacosamide 200 MG BID 04/30 1000 AC 05/07 PO 2239 Levetiracetam 500 MG BID 04/29 2200 AC 05/07 PO 2025 Magnesium Sulfate 1 GM ONCE ONE 05/07 1200 DC 05/07 Dextrose/Water 100 ML IV 05/07 1359 1419 Magnesium Sulfate 1 GM ONCE ONE 05/07 1000 DC 05/07 Dextrose/Water 100 ML IV 05/07 1159 1206 Metoprolol Tartrate 25 MG BID 05/03 1103 AC 05/07 PO 202 Omeprazole 40 MG DAILY AC 04/30 0700 AC 05/07 PO 0616 Phenytoin 200 MG DAILY 04/30 1000 AC 05/07 PO 1320 Phenytoin 300 MG AT BEDTIME 04/29 2200 AC 05/07 PO 2025 Potassium Chloride 10 MEQ Q1H 05/07 1000 DC IV 05/07 1201 Potassium Chloride 60 MEQ ONCE ONE 05/07 0830 DC PO 05/07 0831 Ramelteon 8 MG ONCE ONE 05/08 0045 DC 05/08 PO 05/08 0046 0040 Last 24 Hrs of Lab/Noel Results Last 24 Hrs of Labs/Mics: Laboratory Tests 05/08/16 0550: Anion Gap 8, Estimated GFR > 60, BUN/Creatinine Ratio 20.0, Magnesium 1.8, CBC w Diff NO MAN DIFF REQ, RBC 2.56 L, MCV 85.6, MCH 28.1, RDW 20.3 H, MPV 7.4, Gran % 73.3, Lymphocytes % 19.9 L, Monocytes % 3.7, Eosinophils % 2.8, Basophils % 0.3, Absolute Granulocytes 2.8, Absolute Lymphocytes 0.8 L, Absolute Monocytes 0.1 L, Absolute Eosinophils 0.1, Absolute Basophils 0, PUBS MCHC 32.8 L 05/07/16 1500: CBC w Diff Cancelled, WBC Cancelled, RBC Cancelled, Hgb Cancelled, Hct Cancelled , MCV Cancelled, MCH Cancelled, RDW Cancelled, Plt Count Cancelled, MPV Cancelled, PUBS MCHC Cancelled Lines/Diet/Fluids Lines: peripheral lines Assessment/Plan Assessment: 60 y/o M with PMHx of progressive glioma transitioning to glioblastoma multiforme s/p 1 cycle of chemotherapy and T2DM who is admitted for septic shock with multisystem organ failure of unclear source, now with bilateral lower extremity DVT. #Anemia: H/H has been gradually dropping from 9.4/27.3 (04/28/16), 7.2/21.9 today. Guaiac negative (05/02/16). * Guaiac all stools. * received 1 unit of transfusion today. * recheck CBC tomorrow. #Bilateral LE DVT: Doppler US with BLE DVT extending from the common femoral vein down to the calf veins. Anticoagulation is contraindicated given his history of intracranial bleed. Vascular intervention cannot be successfully completed as it would require high doses of anticoagulation. IVC filter already in place, placed approximately 1 year ago at [facility]. * No anticoagulation or vascular intervention given history of intracranial bleed. * informs in the evening that her oncologist encourages to start an oral anticoagulant. #Glioblastoma multiforme: Complicated by seizures and intracranial bleed in 2014 requiring clot evacuation. S/p 1 cycle of procarbazine/lomustine/vincristine. * Continue prior to admission antiseizure medications phenytoin 200 mg PO daily and 300 mg PO QHS, Keppra 500 mg PO BID and Vimpat 100 mg PO Q12H. * Continue dexamethasone 2 mg PO Q8H. * Continue family discussions regarding CODE status given extremely poor overall prognosis. #Thrombocytopenia: Platelet count continues to improve, 120 today. Most likely secondary to septic shock. No obvious bleeding. * Continue to monitor platelet count daily. * Check CBC within a few days after discharge and forward results to primary oncologist Dr. Knott. #Septic shock: Resolving. Of unclear source with negative cultures and imaging, but potential etiologies include UTI given pyuria and indwelling Lara, aspiration pneumonia given altered mental status and respiratory distress on admission or an intraabdominal process. S/p vancomycin and ceftazidime (04/28-04/30) followed by 3 days of ceftriaxone (05/01-05/03). * Continue to monitor off antibiotics. #Gout: * Continue prior to admission colchicine 600 mg PO daily and allopurinol 300 mg PO daily. #Persistent sinus tachycardia with ventricular ectopy: Likely multifactorial secondary to acute issues including sepsis and anemia. ECHO with normal LVEF. * Resume prior to admission metoprolol 25 mg PO BID. * No further cardiac workup indicated at this time per cardiology. #T2DM: Blood sugars well-controlled. * Hold oral hypoglycemic agents while inpatient. * Accu-checks and Novolog TIDAC/QHS sliding scale. Diet: Consistent Carbohydrate 2 Fluids: None Lytes: Replete to K > 4 and Mg > 2 DVT PPx: ALPs CODE: DNR/DNI Problem List: 1. Septic shock 2. Hypotension 3. Lactic acidosis 4. Deep vein thrombosis (DVT) of both lower extremities 5. Sinus tachycardia 6. Glioblastoma multiforme 7. T2DM (type 2 diabetes mellitus) 8. Gout 9. History of intracranial hemorrhage Pain Ratin Pain Location: n/a Pain Goal: Pain 4 or less Pain Plan: tylenol PRN Tomorrow's Labs & Rationales: cbc post transfusion BEP for monitoring electrolyte abnormalities AARON STEVE,[facility] 05/08/16 1235: Attending MD Review Statement Attending Statement Attending MD Statement: examined this patient, discuss w/resident/PA/ADOLESCENT SPECIALIST, agreed w/resident/PA/ADOLESCENT SPECIALIST, discussed with family, reviewed EMR data (avail), discussed with nursing, discussed with case mgmt, reviewed images, amended to note Attending Assessment/Plan: Patient seen and examined, complain of pain in the bilateral lower extremities. H&H continues to be on the lower side. Patient's is present at bedside. Vital Signs Date Time Temp Pulse Resp B/P Pulse O2 O2 Flow FiO2 Ox Delivery Rate 05/08 1128 Room Air Room Air 05/08 0837 92 130/60 05/08 0706 97.4 96 18 130/60 96 Room Air 05/07 2246 98.1 101 18 110/78 96 Room Air 05/076 101 110/78 05/07 1538 98.0 97 20 128/56 99 on exam; aox3, nad. cv; s1,s2, rrr resp; clear abd; soft, nt, bs+ ext; 1+ edema b/l le. Laboratory Tests 05/08 05/07 0550 1500 Chemistry Sodium (137 - 145 mmol/L) 134 L Potassium (3.5 - 5.1 mmol/L) 3.9 Chloride (98 - 107 mmol/L) 103 Carbon Dioxide (22 - 30 mmol/L) 22 Anion Gap (5 - 16) 8 BUN (9 - 20 mg/dL) 12 Creatinine (0.7 - 1.2 mg/dL) 0.6 L Estimated GFR (>60 ml/min) > 60 BUN/Creatinine Ratio (7 - 25 %) 20.0 Magnesium (1.6 - 2.3 mg/dL) 1.8 Hematology CBC w Diff NO MAN DIFF REQ Cancelled WBC (4.8 - 10.8 /CUMM) 3.9 L Cancelled RBC (4.70 - 6.10 /CUMM) 2.56 L Cancelled Hgb (14.0 - 18.0 G/DL) 7.2 *L Cancelled Hct (42 - 52 %) 21.9 L Cancelled MCV (80.0 - 94.0 FL) 85.6 Cancelled MCH (27.0 - 31.0 PG) 28.1 Cancelled RDW (11.5 - 14.5 %) 20.3 H Cancelled Plt Count (130 - 400 /CUMM) 120 L Cancelled MPV (7.4 - 10.4 FL) 7.4 Cancelled Gran % (42.2 - 75.2 %) 73.3 Lymphocytes % (20.5 - 51.1 %) 19.9 L Monocytes % (1.7 - 9.3 %) 3.7 Eosinophils % (0 - 5 %) 2.8 Basophils % (0.0 - 2.0 %) 0.3 Absolute Granulocytes (1.4 - 6.5 /CUMM) 2.8 Absolute Lymphocytes (1.2 - 3.4 /CUMM) 0.8 L Absolute Monocytes (0.10 - 0.60 /CUMM) 0.1 L Absolute Eosinophils (0.0 - 0.7 /CUMM) 0.1 Absolute Basophils (0.0 - 0.2 /CUMM) 0 PUBS MCHC (33.0 - 37.0 G/DL) 32.8 L Cancelled A/P; 60-year-old male with glioblastoma who was originally admitted with septic shock but this was remained unclear and also found to have bilateral lower extremity DVTs. Patient is status post IVC filter and could not be adequately anticoagulated secondary to high risk of intracranial hemorrhage. At this point his H&H has dropped. We will check his stool for guaiac and transfuse him 1 unit of RBCs. Continue antiseizure medications as well as dexamethasone. Hospice discussion was started with patient and his but according to the report, she was not ready for hospice yet. Patient will also have one of the rehabilitation places come and evaluate him. He is on Tylenol for pain management. Prognosis remains poor.
[2016-05-08 06:24] LABS: ABSOLUTE BASOPHIL COUNT 0 /CUMM (0.0-0.2); ABSOLUTE EOSINOPHIL COUNT 0.1 /CUMM (0.0-0.7); ABSOLUTE GRANULOCYTE CT 2.8 /CUMM (1.4-6.5); ABSOLUTE LYMPH COUNT 0.8 /CUMM (1.2-3.4); ABSOLUTE MONOCYTE COUNT 0.1 /CUMM (0.10-0.60); EOSINOPHIL % 2.8 % (0-5); MEAN CORPUSCULAR HGB 28.1 PG (27.0-31.0); PLATELET COUNT 120 /CUMM (130-400)
[2016-05-08 06:27] LABS: BASOPHIL % 0.3 % (0.0-2.0); GRANULOCYTE % 73.3 % (42.2-75.2); HEMATOCRIT 21.9 % (42-52); MEAN CORPUSCULAR HGB CONC 32.8 G/DL (33.0-37.0); MEAN CORPUSCULAR VOLUME 85.6 FL (80.0-94.0); MEAN PLATELET VOLUME 7.4 FL (7.4-10.4); RBC DISTRIBUTION WIDTH 20.3 % (11.5-14.5); RED BLOOD CELL CT 2.56 /CUMM (4.70-6.10); WHITE BLOOD CELL COUNT 3.9 /CUMM (4.8-10.8)
[2016-05-08 07:06] VITALS: BP 130/60
[2016-05-08 15:35] VITALS: BP 138/68
[2016-05-08 22:58] VITALS: BP 120/74
[2016-05-09 06:53] VITALS: BP 126/78
--- NOTE | 2016-05-09 06:53 | PN- Housestaff ---
ANGELINA STEVE,[facility] [place] 05/09/16 0652: Subjective Follow-up For: Bilateral lower extremity DVT Glioblastoma multiforme Subjective: No acute events overnight. Patient received 1 unit of pRBCs yesterday with improvement of his H/H. Patient was seen and examined this morning. He is awake, alert and comfortable. He reports feeling well and has no complaints. Percocet has provided substantial relief from the leg pain. Later in the afternoon, he fell on his knees while trying to get out of bed. There was no head injury. He denied pain after the fall and was asymptomatic. Review of Systems Constitutional: Reports: no symptoms. Objective Last 24 Hrs of Vital Signs/I&O Vital Signs Date Time Temp Pulse Resp B/P Pulse O2 O2 Flow FiO2 Ox Delivery Rate 05/09 1430 98.2 80 20 125/80 98 05/09 1026 90 130/70 05/09 0653 98.6 94 18 126/78 98 05/09 0000 97 Room Air 05/08 2258 97.9 84 20 120/74 97 Room Air 05/08 1535 98.1 98 18 138/68 98 Room Air Intake & Output 05/09 1600 05/09 0800 05/09 0000 Intake Total 100 950 Output Total 450 300 Balance -350 650 Intake, Blood 350 Product Intake, IV 0 Intake, Oral 100 600 Number 0 1 Bowel Movements Output, Urine 450 300 Physical Exam General Appearance: Alert, No Acute Distress HEENT: Mucous Membr. moist/pink Neck: Supple Cardiovascular: Regular Rate, Normal S1, Normal S2 Lungs: Clear to Auscultation Abdomen: Soft, No Tenderness, Positive Bowel Sounds Extremities: Bilateral Lower Extremities with 1+ Edema Current Medications: Current Medications Sig/Ness Start time Last Medication Dose Route Stop Time Status Admin Acetaminophen 650 MG Q6P PRN 04/29 1900 AC 05/04 PO 1725 Allopurinol 300 MG DAILY 05/03 1823 AC 05/09 PO 1026 Colchicine 600 MCG DAILY 05/03 1823 AC 05/09 PO 1026 Dexamethasone 2 MG Q8 04/29 2200 AC 05/09 PO 1350 Insulin Aspart 0 TIDAC 04/30 0800 AC 05/08 SC 1806 Lacosamide 200 MG BID 04/30 1000 AC 05/09 PO 1025 Levetiracetam 500 MG BID 04/29 220 AC 05/09 PO 1026 Magnesium Oxide 400 MG ONE ONE 05/09 1430 DC PO 05/09 1431 Metoprolol Tartrate 25 MG BID 05/03 1103 AC 05/09 PO 1026 Omeprazole 40 MG DAILY AC 04/30 0700 AC 05/09 PO 0602 Oxycodone/ 1 TAB Q6P PRN 05/08 1745 AC 05/08 Acetaminophen PO 1806 Phenytoin 200 MG DAILY 04/30 1000 AC 05/09 PO 1025 Phenytoin 300 MG AT BEDTIME 04/29 2200 AC 05/08 PO 2117 Potassium Chloride 40 MEQ ONCE ONE 05/09 1400 DC PO 05/09 1401 Last 24 Hrs of Lab/Noel Results Last 24 Hrs of Labs/Mics: Laboratory Tests 05/09/16 0615: Anion Gap 7, Estimated GFR > 60, BUN/Creatinine Ratio 16.7, Magnesium 1.7, CBC w Diff NO MAN DIFF REQ, RBC 3.02 L, MCV 84.4, MCH 28.2, RDW 20.1 H, MPV 7.6, Gran % 74.7, Lymphocytes % 19.3 L, Monocytes % 3.2, Eosinophils % 2.4, Basophils % 0.4, Absolute Granulocytes 3.1, Absolute Lymphocytes 0.8 L, Absolute Monocytes 0.1 L, Absolute Eosinophils 0.1, Absolute Basophils 0, PUBS MCHC 33.4 Assessment/Plan Assessment: 60 y/o M with PMHx of progressive glioma transitioning to glioblastoma multiforme s/p 1 cycle of chemotherapy and T2DM who is admitted for septic shock with multisystem organ failure of unclear source, now with bilateral lower extremity DVT. #Anemia: S/p 1 unit of pRBCs with improvement of H/H to 8.5/25.5. Guaiac negative on 05/02/16. * Continue to monitor H/H and transfuse as needed. * Guaiac all stools. #Bilateral LE DVT: Doppler US with BLE DVT extending from the common femoral vein down to the calf veins. IVC filter already in place, placed approximately 1 year ago at [facility]. * Anticoagulation or vascular intervention contraindicated given history of intracranial bleed. * Per primary oncologist Dr. Knott, consider starting Lovenox 1 mg/kg BID if patient is symptomatic. #Glioblastoma multiforme: Complicated by seizures and intracranial bleed in 2014 requiring clot evacuation. S/p 1 cycle of procarbazine/lomustine/vincristine. * Continue prior to admission antiseizure medications phenytoin 200 mg PO daily and 300 mg PO QHS, Keppra 500 mg PO BID and Vimpat 100 mg PO Q12H. * Continue dexamethasone 2 mg PO Q8H. * Continue family discussions regarding CODE status given poor overall prognosis. #Thrombocytopenia: Resolving, platelet count has further improved to 130 today. Most likely secondary to septic shock. No obvious bleeding. * Continue to monitor platelet count daily. * Check CBC within a few days after discharge and forward results to primary oncologist Dr. Knott. #Gout: * Continue prior to admission colchicine 600 mg PO daily and allopurinol 300 mg PO daily. #T2DM: Blood sugars well-controlled. * Hold oral hypoglycemic agents while inpatient. * Accu-checks and Novolog TIDAC/QHS sliding scale. Diet: Consistent Carbohydrate 2 Fluids: None Lytes: Replete to K > 4 and Mg > 2 DVT PPx: ALPs CODE: DNR/DNI Problem List: 1. Deep vein thrombosis (DVT) of both lower extremities 2. Glioblastoma multiforme 3. Anemia 4. Thrombocytopenia Pain Ratin Pain Location: N/A Pain Goal: Remain pain free Pain Plan: Percocet 1 tab PO Q6H PRN for severe pain (scale 7-10) Tylenol 650 mg Po Q6H PRN for mild pain (scale 1-3) Tomorrow's Labs & Rationales: CBC to monitor H/H in the setting of anemia Discharge Plan Discharge Disposition: awaiting STR/NH placement MADIE MONTERROSO MD 05/09/16 1247: Attending MD Review Statement Attending Statement Attending MD Statement: examined this patient, discuss w/resident/PA/VASCULAR RADIOLOGIST, agreed w/resident/PA/VASCULAR RADIOLOGIST, reviewed EMR data (avail), discussed with nursing, amended to note Attending Assessment/Plan: The patient was seen and discussed with house staff. Agree with the plan of care as outlined.
[2016-05-09 08:57] LABS: ABSOLUTE BASOPHIL COUNT 0 /CUMM (0.0-0.2); ABSOLUTE EOSINOPHIL COUNT 0.1 /CUMM (0.0-0.7); ABSOLUTE GRANULOCYTE CT 3.1 /CUMM (1.4-6.5); ABSOLUTE LYMPH COUNT 0.8 /CUMM (1.2-3.4); ABSOLUTE MONOCYTE COUNT 0.1 /CUMM (0.10-0.60); BASOPHIL % 0.4 % (0.0-2.0); EOSINOPHIL % 2.4 % (0-5); GRANULOCYTE % 74.7 % (42.2-75.2); HEMATOCRIT 25.5 % (42-52); MEAN CORPUSCULAR HGB 28.2 PG (27.0-31.0); MEAN CORPUSCULAR HGB CONC 33.4 G/DL (33.0-37.0); MEAN CORPUSCULAR VOLUME 84.4 FL (80.0-94.0); MEAN PLATELET VOLUME 7.6 FL (7.4-10.4); PLATELET COUNT 130 /CUMM (130-400); RBC DISTRIBUTION WIDTH 20.1 % (11.5-14.5); RED BLOOD CELL CT 3.02 /CUMM (4.70-6.10); WHITE BLOOD CELL COUNT 4.2 /CUMM (4.8-10.8)
[2016-05-09 14:30] VITALS: BP 125/80
[2016-05-09 22:18] VITALS: BP 120/70
--- NOTE | 2016-05-10 07:09 | PN- Housestaff ---
ANGELINA STEVE,[facility] [place] 05/10/16 0709: Subjective Follow-up For: Bilateral lower extremity DVT Glioblastoma multiforme Subjective: Patient had diarrhea overnight and stool C. difficile was sent. Patient was seen and examined this morning. He is sitting in chair and appears comfortable. He reports feeling depressed. He denies abdominal pain. Review of Systems Constitutional: Reports: see HPI. Objective Last 24 Hrs of Vital Signs/I&O Vital Signs Date Time Temp Pulse Resp B/P Pulse O2 O2 Flow FiO2 Ox Delivery Rate 05/10 1515 97.7 112 20 120/70 96 05/10 1452 Room Air Room Air 05/10 0849 90 120/70 05/10 0716 98.3 93 20 120/70 98 Room Air 05/10 0000 97 Room Air 05/09 2218 98.3 68 20 120/70 97 Intake & Output 05/10 1600 05/10 0800 05/10 0000 Intake Total 650 150 Output Total 475 850 Balance 175 -700 Intake, IV 0 Intake, Oral 650 150 Number 3 2 Bowel Movements Output, Urine 475 850 Physical Exam General Appearance: Alert, No Acute Distress HEENT: Atraumatic, Mucous Membr. moist/pink Neck: Supple Cardiovascular: Regular Rate, Normal S1, Normal S2 Lungs: Clear to Auscultation Abdomen: Soft, No Tenderness, Positive Bowel Sounds Extremities: No Clubbing, No Cyanosis, Bilateral Lower Extremities with 1+ Edema Current Medications: Current Medications Sig/Ness Start time Last Medication Dose Route Stop Time Status Admin Acetaminophen 650 MG Q6P PRN 04/29 1900 AC 05/04 PO 1725 Allopurinol 300 MG DAILY 05/03 1823 AC 05/10 PO 0849 Colchicine 600 MCG DAILY 05/03 1823 AC 05/10 PO 0849 Dexamethasone 2 MG Q8 04/29 2200 AC 05/10 PO 1441 Insulin Aspart 0 TIDAC 04/30 0800 AC 05/09 SC 1832 Lacosamide 200 MG BID 04/30 1000 AC 05/10 PO 0857 Levetiracetam 500 MG BID 04/29 2200 AC 05/10 PO 0849 Metoprolol Tartrate 25 MG BID 05/03 1103 AC 05/10 PO 0849 Metronidazole 500 MG Q8 05/10 1414 AC 05/10 PO 1620 Omeprazole 40 MG DAILY AC 04/30 0700 AC 05/10 PO 0630 Oxycodone/ 1 TAB Q6P PRN 05/08 1745 AC 05/09 Acetaminophen PO 1622 Patient Medication 1 ED ONE ONE 05/10 1345 DC 05/10 Teaching ED 05/10 1346 1620 Phenytoin 200 MG DAILY 04/30 1000 AC 05/10 PO 0849 Phenytoin 300 MG AT BEDTIME 04/29 2200 AC 05/09 PO 2051 Last 24 Hrs of Lab/Noel Results Last 24 Hrs of Labs/Mics: Laboratory Tests 05/10/16 0535: CBC w Diff NO MAN DIFF REQ, RBC 2.85 L, MCV 85.2, MCH 28.3, RDW 19.9 H, MPV 7.6, Gran % 74.7, Lymphocytes % 20.0 L, Monocytes % 2.5, Eosinophils % 2.4, Basophils % 0.4, Absolute Granulocytes 2.9, Absolute Lymphocytes 0.8 L, Absolute Monocytes 0.1 L, Absolute Eosinophils 0.1, Absolute Basophils 0, PUBS MCHC 33.2 Microbiology Stool C. difficile (05/10/16): Positive Assessment/Plan Assessment: 60 y/o M with PMHx of progressive glioma transitioning to glioblastoma multiforme s/p 1 cycle of chemotherapy and T2DM who is admitted for septic shock with multisystem organ failure of unclear source, now with bilateral lower extremity DVT. #C. difficile diarrhea: Diarrhea since last night. Stool C. difficile positive. * Start Flagyl 500 mg PO Q8H. #Bilateral LE DVT: Doppler US with BLE DVT extending from the common femoral vein down to the calf veins. IVC filter already in place, placed approximately 1 year ago at [facility]. * Anticoagulation or vascular intervention contraindicated given history of intracranial bleed. * Per primary oncologist Dr. Knott, consider starting Lovenox 1 mg/kg BID only if patient is symptomatic. #Anemia: H/H stable at 8.1/24.3. Guaiac negative. * Continue to monitor H/H and transfuse as needed. * Guaiac all stools. #Glioblastoma multiforme: Complicated by seizures and intracranial bleed in 2014 requiring clot evacuation. S/p 1 cycle of procarbazine/lomustine/vincristine. * Continue prior to admission antiseizure medications phenytoin 200 mg PO daily and 300 mg PO QHS, Keppra 500 mg PO BID and Vimpat 100 mg PO Q12H. * Continue dexamethasone 2 mg PO Q8H. * Continue family discussions regarding CODE status given poor overall prognosis. #Gout: * Continue prior to admission colchicine 600 mg PO daily and allopurinol 300 mg PO daily. #T2DM: Blood sugars well-controlled. * Hold oral hypoglycemic agents while inpatient. * Accu-checks and Novolog TIDAC/QHS sliding scale. Diet: Consistent Carbohydrate 2 Fluids: None Lytes: Replete to K > 4 and Mg > 2 DVT PPx: ALPs CODE: DNR/DNI Problem List: 1. Glioblastoma multiforme 2. Deep vein thrombosis (DVT) of both lower extremities 3. T2DM (type 2 diabetes mellitus) 4. Gout 5. Anemia 6. History of intracranial hemorrhage 7. C. difficile diarrhea Pain Ratin Pain Location: N/A Pain Goal: Remain pain free Pain Plan: Percocet 1 tab PO Q6H PRN for severe pain (scale 7-10) Tylenol 650 mg PO Q6H PRN for mild pain (scale 1-3) Tomorrow's Labs & Rationales: CBC to monitor H/H in the setting of anemia and WBC in the setting of C. difficile infection BMP to monitor lytes and kidney function in the setting of diarrhea Discharge Plan Discharge Disposition: STR/NH Stable for Discharge? No Anticipated Discharge (Day): tomorrow [facility] 1250: Attending MD Review Statement Attending Statement Attending MD Statement: examined this patient, discuss w/resident/PA/FORKLIFT DRIVER, agreed w/resident/PA/FORKLIFT DRIVER, reviewed EMR data (avail), discussed with nursing, discussed with case mgmt, reviewed images, amended to note Attending Assessment/Plan: Patient seen and examined, not feeling so well. Patient had diarrhea yesterday and this morning also. His stool for C. difficile has been sent. Patient is feeling somewhat depressed but refuses to see a psychiatrist. Vital Signs Date Time Temp Pulse Resp B/P Pulse O2 O2 Flow FiO2 Ox Delivery Rate 05/10 0849 90 120/70 05/10 0716 98.3 93 20 120/70 98 Room Air 05/10 0000 97 Room Air 05/09 2218 98.3 68 20 120/70 97 05/09 1430 98.2 80 20 125/80 98 on exam; awake, nad. cv; s1,s2, rrr resp; clear abd; soft, nt, bs+ ext; no edema. Laboratory Tests 05/10 0535 Hematology CBC w Diff NO MAN DIFF REQ WBC (4.8 - 10.8 /CUMM) 3.9 L RBC (4.70 - 6.10 /CUMM) 2.85 L Hgb (14.0 - 18.0 G/DL) 8.1 L Hct (42 - 52 %) 24.3 L MCV (80.0 - 94.0 FL) 85.2 MCH (27.0 - 31.0 PG) 28.3 RDW (11.5 - 14.5 %) 19.9 H Plt Count (130 - 400 /CUMM) 137 MPV (7.4 - 10.4 FL) 7.6 Gran % (42.2 - 75.2 %) 74.7 Lymphocytes % (20.5 - 51.1 %) 20.0 L Monocytes % (1.7 - 9.3 %) 2.5 Eosinophils % (0 - 5 %) 2.4 Basophils % (0.0 - 2.0 %) 0.4 Absolute Granulocytes (1.4 - 6.5 /CUMM) 2.9 Absolute Lymphocytes (1.2 - 3.4 /CUMM) 0.8 L Absolute Monocytes (0.10 - 0.60 /CUMM) 0.1 L Absolute Eosinophils (0.0 - 0.7 /CUMM) 0.1 Absolute Basophils (0.0 - 0.2 /CUMM) 0 PUBS MCHC (33.0 - 37.0 G/DL) 33.2 A/P; 60-year-old male with glioblastoma who was originally admitted with septic shock but this was remained unclear and also found to have bilateral lower extremity DVTs. Patient is status post IVC filter and could not be adequately anticoagulated secondary to high risk of intracranial hemorrhage. Patient had developed diarrhea and C. difficile was sent. C. difficile came out positive. With start the patient on Flagyl. Reportedly patient's life have some concerns about anti-coagulation. Will discuss with the . The emergency medcl emt has recommended not to start on any indicated regulation secondary to high risk off intracranial hemorrhage. Continue current medications and current pain management. Patient will need to go to rehabilitation as and patient has not decided for hospice yet.
[2016-05-10 07:16] VITALS: BP 120/70
[2016-05-10 08:05] LABS: ABSOLUTE BASOPHIL COUNT 0 /CUMM (0.0-0.2); ABSOLUTE EOSINOPHIL COUNT 0.1 /CUMM (0.0-0.7); ABSOLUTE GRANULOCYTE CT 2.9 /CUMM (1.4-6.5); ABSOLUTE LYMPH COUNT 0.8 /CUMM (1.2-3.4); ABSOLUTE MONOCYTE COUNT 0.1 /CUMM (0.10-0.60); BASOPHIL % 0.4 % (0.0-2.0); EOSINOPHIL % 2.4 % (0-5); GRANULOCYTE % 74.7 % (42.2-75.2); HEMATOCRIT 24.3 % (42-52); MEAN CORPUSCULAR HGB 28.3 PG (27.0-31.0); MEAN CORPUSCULAR HGB CONC 33.2 G/DL (33.0-37.0); MEAN CORPUSCULAR VOLUME 85.2 FL (80.0-94.0); MEAN PLATELET VOLUME 7.6 FL (7.4-10.4); PLATELET COUNT 137 /CUMM (130-400); RBC DISTRIBUTION WIDTH 19.9 % (11.5-14.5); RED BLOOD CELL CT 2.85 /CUMM (4.70-6.10); WHITE BLOOD CELL COUNT 3.9 /CUMM (4.8-10.8)
[2016-05-10 15:15] VITALS: BP 120/70
[2016-05-10 21:31] VITALS: BP 125/68
[2016-05-10] MEDS ORDERED: METRONIDAZOLE500 M1 PO (22:34)
[2016-05-11 06:36] VITALS: BP 110/74
--- NOTE | 2016-05-11 07:00 | PN- Housestaff ---
Subjective Follow-up For: C. difficile diarrhea Bilateral lower extremity DVT Glioblastoma multiforme Subjective: No acute events overnight. Patient seen and examined this morning. He is resting comfortably in bed. He feels better this morning. Diarrhea has significantly improved. Leg pain is well-controlled with Percocet. Review of Systems Constitutional: Reports: see HPI. Objective Last 24 Hrs of Vital Signs/I&O Vital Signs Date Time Temp Pulse Resp B/P Pulse O2 O2 Flow FiO2 Ox Delivery Rate 05/11 0636 98.3 92 20 110/74 99 Room Air 05/10 2131 97.8 111 20 125/68 94 05/10 1515 97.7 112 20 120/70 96 05/10 1452 Room Air Room Air 05/10 0849 90 120/70 Intake & Output 05/11 1600 05/11 0800 05/11 0000 Intake Total Output Total 950 Balance -950 Output, Urine 950 Physical Exam General Appearance: Alert, No Acute Distress HEENT: Atraumatic, Mucous Membr. moist/pink Neck: Supple Cardiovascular: Regular Rate, Normal S1, Normal S2 Lungs: Clear to Auscultation Abdomen: Soft, No Tenderness, Positive Bowel Sounds Extremities: No Clubbing, No Cyanosis, No Edema, Bilateral Lower Extremities with 2+ Edema Current Medications: Current Medications Sig/Ness Start time Last Medication Dose Route Stop Time Status Admin Acetaminophen 650 MG Q6P PRN 04/29 1900 AC 05/04 PO 1725 Allopurinol 300 MG DAILY 05/03 1823 AC 05/10 PO 0849 Colchicine 600 MCG DAILY 05/03 1823 AC 05/10 PO 0849 Dexamethasone 2 MG Q8 04/29 2200 AC 05/11 PO 0632 Insulin Aspart 0 TIDAC 04/30 0800 AC 05/09 SC 1832 Lacosamide 200 MG BID 04/30 1000 AC 05/10 PO 2139 Levetiracetam 500 MG BID 04/29 2200 AC 05/10 PO 2139 Metoprolol Tartrate 25 MG BID 05/03 1103 AC 05/10 PO 2140 Metronidazole 500 MG Q8 05/10 1414 AC 05/11 PO 0631 Omeprazole 40 MG DAILY AC 04/30 0700 AC 05/11 PO 0632 Oxycodone/ 1 TAB Q6P PRN 05/08 1745 AC 05/10 Acetaminophen PO 2009 Patient Medication 1 ED ONE ONE 05/10 1345 DC 05/10 Teaching ED 05/10 1346 1620 Phenytoin 200 MG DAILY 04/30 1000 AC 05/10 PO 0849 Phenytoin 300 MG AT BEDTIME 04/29 2200 AC 05/10 PO 2140 Last 24 Hrs of Lab/Noel Results Last 24 Hrs of Labs/Mics: Laboratory Tests 05/11 0635 Chemistry Sodium (137 - 145 mmol/L) 135 L Potassium (3.5 - 5.1 mmol/L) 3.6 Chloride (98 - 107 mmol/L) 103 Carbon Dioxide (22 - 30 mmol/L) 24 Anion Gap (5 - 16) 8 BUN (9 - 20 mg/dL) 9 Creatinine (0.7 - 1.2 mg/dL) 0.5 L Estimated GFR (>60 ml/min) > 60 BUN/Creatinine Ratio (7 - 25 %) 18.0 Hematology CBC w Diff NO MAN DIFF REQ WBC (4.8 - 10.8 /CUMM) 3.4 L RBC (4.70 - 6.10 /CUMM) 2.97 L Hgb (14.0 - 18.0 G/DL) 8.4 L Hct (42 - 52 %) 25.2 L MCV (80.0 - 94.0 FL) 84.8 MCH (27.0 - 31.0 PG) 28.2 RDW (11.5 - 14.5 %) 20.1 H Plt Count (130 - 400 /CUMM) 151 MPV (7.4 - 10.4 FL) 7.5 Gran % (42.2 - 75.2 %) 70.5 Lymphocytes % (20.5 - 51.1 %) 23.4 Monocytes % (1.7 - 9.3 %) 3.2 Eosinophils % (0 - 5 %) 2.5 Basophils % (0.0 - 2.0 %) 0.4 Absolute Granulocytes (1.4 - 6.5 /CUMM) 2.4 Absolute Lymphocytes (1.2 - 3.4 /CUMM) 0.8 L Absolute Monocytes (0.10 - 0.60 /CUMM) 0.1 L Absolute Eosinophils (0.0 - 0.7 /CUMM) 0.1 Absolute Basophils (0.0 - 0.2 /CUMM) 0 PUBS MCHC (33.0 - 37.0 G/DL) 33.3 Assessment/Plan Assessment: 60 y/o M with PMHx of progressive glioma transitioning to glioblastoma multiforme s/p 1 cycle of chemotherapy and T2DM who is admitted for septic shock with multisystem organ failure of unclear source, now with bilateral lower extremity DVT. Plan for discharge to [facility] today. #C. difficile diarrhea: Started on Flagyl yesterday with significant improvement. * Continue Flagyl 500 mg PO Q8H for a total of 10 days. #Bilateral LE DVT: Doppler US with BLE DVT extending from the common femoral vein down to the calf veins. IVC filter already in place, placed approximately 1 year ago at [facility]. * Anticoagulation or vascular intervention contraindicated given history of intracranial bleed. * Per primary oncologist Dr. Knott, consider starting Lovenox 1 mg/kg BID only if patient is symptomatic. #Glioblastoma multiforme: Complicated by seizures and intracranial bleed in 2015 requiring clot evacuation. S/p 1 cycle of procarbazine/lomustine/vincristine. * Continue prior to admission antiseizure medications phenytoin 200 mg PO daily and 300 mg PO QHS, Keppra 500 mg PO BID and Vimpat 100 mg PO Q12H. * Continue dexamethasone 2 mg PO Q8H. * Instructions provided to follow up with Dr. Knott on discharge. #Gout: * Continue prior to admission colchicine 600 mg PO daily and allopurinol 300 mg PO daily. #T2DM: Blood sugars well-controlled. * Resume prior to admission glimepiride 2 mg PO daily on discharge. #Lara: Lara catheter was placed in the ED on admission and remained in place throughout current hospitalization. It was removed today but patient has not voided yet. * Patient should be bladder scanned at the rehab facility with initiation of straight cath protocol if found to be retaining urine. Diet: Consistent Carbohydrate 2 DVT PPx: ALPs CODE: DNR/DNI Problem List: 1. C. difficile diarrhea 2. History of intracranial hemorrhage 3. Deep vein thrombosis (DVT) of both lower extremities 4. Anemia 5. Deep vein thrombosis (DVT) of right lower extremity 6. Glioblastoma multiforme Pain Ratin Pain Location: N/A Pain Goal: Remain pain free Pain Plan: Percocet 1 tab PO Q6H PRN for severe pain (scale 7-10) Tylenol 650 mg PO Q6H PRN for mild pain (scale 1-3) Tomorrow's Labs & Rationales: None Discharge Plan Discharge Disposition: STR/NH Stable for Discharge? Yes Anticipated Discharge (Day): today
[2016-05-11 08:36] LABS: ABSOLUTE BASOPHIL COUNT 0 /CUMM (0.0-0.2); ABSOLUTE EOSINOPHIL COUNT 0.1 /CUMM (0.0-0.7); ABSOLUTE GRANULOCYTE CT 2.4 /CUMM (1.4-6.5); ABSOLUTE LYMPH COUNT 0.8 /CUMM (1.2-3.4); ABSOLUTE MONOCYTE COUNT 0.1 /CUMM (0.10-0.60); BASOPHIL % 0.4 % (0.0-2.0); EOSINOPHIL % 2.5 % (0-5); GRANULOCYTE % 70.5 % (42.2-75.2); HEMATOCRIT 25.2 % (42-52); MEAN CORPUSCULAR HGB 28.2 PG (27.0-31.0); MEAN CORPUSCULAR HGB CONC 33.3 G/DL (33.0-37.0); MEAN CORPUSCULAR VOLUME 84.8 FL (80.0-94.0); MEAN PLATELET VOLUME 7.5 FL (7.4-10.4); PLATELET COUNT 151 /CUMM (130-400); RBC DISTRIBUTION WIDTH 20.1 % (11.5-14.5); RED BLOOD CELL CT 2.97 /CUMM (4.70-6.10); WHITE BLOOD CELL COUNT 3.4 /CUMM (4.8-10.8)
[2016-05-11 14:26] VITALS: BP 118/70
[2016-05-11 14:39] VITALS: BP 118/70
== END 2016-05-11 15:20 | DRG 871 ==
LOC: ENRESERVDT → ENRESERVTM → ERH 09:56 → CRI 11:30 → ERHI 11:30 → ENPENDDIS 11:30 → CRI 14:13 → 2NA 05-07 10:37
PROVIDERS: Dermatology; Emergency Medicine; Internal Medicine; Student in an Organized Health Care Education/Training Program; ADMIT Internal Medicine Critical Care Medicine
PROC: 5A09357 Assistance with Respiratory Ventilation, Less than 24 Consecutive Hours, Continuous Positive Airway Pressure (ICD-10-PCS; principal; 2016-04-28)
DX: A41.9 Sepsis, unspecified organism (principal); J69.0 Pneumonitis due to inhalation of food and vomit; J96.01 Acute respiratory failure with hypoxia; R65.21 Severe sepsis with septic shock; N17.9 Acute kidney failure, unspecified; E87.2 Acidosis; C71.9 Malignant neoplasm of brain, unspecified; D69.6 Thrombocytopenia, unspecified; I82.412 Acute embolism and thrombosis of left femoral vein; A09 Infectious gastroenteritis and colitis, unspecified; E87.5 Hyperkalemia; R00.0 Tachycardia, unspecified; B96.7 Clostridium perfringens [C. perfringens] as the cause of diseases classified elsewhere; E11.9 Type 2 diabetes mellitus without complications; Z79.84 Long term (current) use of oral hypoglycemic drugs; M10.9 Gout, unspecified
CPT/HCPCS: 2NAP; CCU; 36415; 74176; 74230; 81001; 82436; 86902; 86920; 86922; 87040; 87086; 93005; 93010; 93306; 94799; 96374; 96375; 96376; 97110-GO; 97112-GO; 97162-GP; 97530-GO; 99291; C9254; J0131; J0696; J0713; J1100; J1165; J1642; J1953; J2930; J3370; J7040; J7042; J7060; P9016